=== PATIENT | male | born 1955 | race Caucasian/White ===

== ENCOUNTER 2017-07-03 18:21 | Emergency (ER) | payer MEDICAID ==
[~2017-07-03] VITALS: Ht 182.9 cm; Wt 75.0 kg
[~2017-07-03 18:21] MED LIST: ASPI-1265 PO; ATOR20TA66 PO; CARB-101 PO; FURO40TA4 PO; LEVO750T46 PO; LISI-604 PO; METO50TA16 PO; NITR0.4T51 SL; POTA-82 PO; PRED20TA PO; ROPI1TAB4 PO
[2017-07-03] MEDS ORDERED: ketorolac trometh. 30mg/ml inj. IV ONE (19:30)
[2017-07-03] MEDS ORDERED: acetaminophen 325mg tablet PO ONE (21:25)
[2017-07-03] MEDS ORDERED: ACET-2119 PO (21:29)
[2017-07-03 21:36] VITALS: BP 133/96
== END 2017-07-03 21:44 | disposition home or self-care (01) ==
LOC: ER 18:23
DX: M79.671 Pain in right foot (principal); M79.672 Pain in left foot; I25.10 Atherosclerotic heart disease of native coronary artery without angina pectoris; I11.0 Hypertensive heart disease with heart failure; I50.9 Heart failure, unspecified; I25.2 Old myocardial infarction; E78.00 Pure hypercholesterolemia, unspecified; F15.10 Other stimulant abuse, uncomplicated; Z59.0 Homelessness; Z98.890 Other specified postprocedural states; Z79.82 Long term (current) use of aspirin; Z79.899 Other long term (current) drug therapy
CPT/HCPCS: 96374; 99284; J1885

== ENCOUNTER 2017-11-12 08:30 | Emergency (ER) | payer MEDICAID ==
[~2017-11-12] VITALS: Ht 188 cm; Wt 74.0 kg
[~2017-11-12 08:30] MED LIST changes: +ATOR20TA PO; -ATOR20TA66 PO; -CARB-101 PO; +CARB200C4 PO; +FURO-150 PO; -FURO40TA4 PO; -LEVO750T46 PO; -LISI-604 PO; +LISINOPRIL PO; -METO50TA16 PO; -NITR0.4T51 SL; +NITROGLYCERIN SL SL; -POTA-82 PO; +POTA20PA3 PO; -PRED20TA PO; +PROP10TA10 PO
[2017-11-12 09:13] VITALS: BP 138/96
== END 2017-11-12 09:43 | disposition home or self-care (01) ==
LOC: ER 08:30
DX: M79.89 Other specified soft tissue disorders (principal); I25.10 Atherosclerotic heart disease of native coronary artery without angina pectoris; I11.0 Hypertensive heart disease with heart failure; I50.9 Heart failure, unspecified; E78.00 Pure hypercholesterolemia, unspecified; I25.2 Old myocardial infarction; M19.90 Unspecified osteoarthritis, unspecified site; F12.10 Cannabis abuse, uncomplicated; F15.10 Other stimulant abuse, uncomplicated; Z59.0 Homelessness; Z56.0 Unemployment, unspecified; Z79.82 Long term (current) use of aspirin; Z79.899 Other long term (current) drug therapy
CPT/HCPCS: 99281

== ENCOUNTER 2018-01-05 13:26 | Inpatient (IN) | payer MEDICAID ==
[~2018-01-05] VITALS: Ht 188 cm; Wt 77.1 kg
[~2018-01-05 13:26] MED LIST changes: -POTA20PA3 PO; +POTA20PA40 PO; +dextrose 50%-water 50ml dispensing syringe IV ONE
[2018-01-05 14:16] LABS: BASOPHILS % (AUTO) 0.6 % (0-1); EOSINOPHILS # (AUTO) 0.1 X10'3 (0-0.9); EOSINOPHILS % (AUTO) 3.6 % (0-6); HEMATOCRIT 35.6 % (42.0-52.0); HEMOGLOBIN 11.9 g/dl (14.0-17.9); LYMPHOCYTES % (AUTO) 27.3 % (21-51); MEAN CORPUSCULAR HEMOGLOBIN 28.9 PG (27.0-31.0); MEAN CORPUSCULAR HGB CONC 33.3 % (33.0-36.5); MEAN CORPUSCULAR VOLUME 86.7 FL (78-98); MEAN PLATELET VOLUME 7.6 FL (7.4-10.4); MONOCYTES # (AUTO) 0.3 X10'3 (0-0.9); MONOCYTES % (AUTO) 8.6 % (2-12); NEUTROPHILS # (AUTO) 2.3 X10'3 (1.8-7.7); NEUTROPHILS % (AUTO) 59.9 % (42-75); PLATELET COUNT 275 X10'3 (140-440); RED CELL DISTRIBUTION WIDTH 16.5 % (11.5-14.5); WHITE BLOOD COUNT 3.8 X10'3 (4.5-11.0)
[2018-01-05 14:26] LABS: INR 1.1 INR; PARTIAL THROMBOPLASTIN TIME 25 SECONDS (22-32); PROTHROMBIN TIME 11.1 SECONDS (9.0-12.0)
[2018-01-05 14:30] LABS: ALANINE AMINOTRANSFERASE 24 U/L (12-78); ALBUMIN 2.8 G/DL (3.4-5.0); ALBUMIN/GLOBULIN RATIO 0.5 (1.1-1.5); ALKALINE PHOSPHATASE 102 IU/L (46-116); ANION GAP 7 (8-16); ASPARTATE AMINO TRANSFERASE 37 U/L (10-37); BILIRUBIN,TOTAL 0.6 MG/DL (0.1-1.0); BLOOD UREA NITROGEN 16 MG/DL (7-18); BUN/CREATININE RATIO 10.1 (5.4-32.0); CALCIUM 8.9 MG/DL (8.5-10.1); CHLORIDE 106 MMOL/L (99-107); CREATININE 1.58 MG/DL (0.60-1.10); POTASSIUM 4.3 MMOL/L (3.5-5.1); SODIUM 138 MMOL/L (135-145); eGFR 54 ML/MIN
[2018-01-05 14:31] LABS: GLUCOSE 144 MG/DL (70-104)
[2018-01-05] MEDS ORDERED: iohexol 350MG/ML 100ml bottle IV ONE (16:15)
[2018-01-05] MEDS ORDERED: normal saline 1000ML IV soln IVB ONE (16:15)
[2018-01-05] MEDS ORDERED: magnesium 4gm in 100ml NS 100 ML IV PRN (17:40)
[2018-01-05] MEDS ORDERED: magnesium 1gm/100ml D5W IVPB 50 ML IV PRN (17:40)
[2018-01-05] MEDS ORDERED: mag hydrox/Alum hydrox/simeth 30ml oral suspension PO PRN (17:40)
[2018-01-05] MEDS ORDERED: ipratropium/albuterol 3ml nebule NEB PRN (17:40)
[2018-01-05] MEDS ORDERED: acetaminophen 325mg tablet PO PRN (17:40)
[2018-01-05] MEDS ORDERED: potassium Cl 20 mEq SR tablet PO PRN ×2 (17:40)
[2018-01-05] MEDS ORDERED: potassium Cl 40MEQ/NS 500ml 500 ML IV PRN ×2 (17:40)
[2018-01-05 18:31] LABS: URINE AMPHETAMINE SCREEN POSITIVE (Neg); URINE BARBITUATE SCREEN NEGATIVE (Neg); URINE BENZODIAZEPINES SCREEN NEGATIVE (Neg); URINE CANNABINOID SCREEN NEGATIVE (Neg); URINE COCAINE SCREEN NEGATIVE (Neg); URINE METHADONE SCREEN NEGATIVE (Neg); URINE OPIATE SCREEN NEGATIVE (Neg); URINE PHENCYCLIDINE SCREEN NEGATIVE (Neg)
[2018-01-05] MEDS ORDERED: METO50TA16 PO (18:32)
[2018-01-05] MEDS ORDERED: FURO20TA4 PO (18:32)
[2018-01-05] MEDS ORDERED: ASPI-10 PO (18:32)
[2018-01-05] MEDS ORDERED: MORPHINE 2MG in 2ml NS syringe IV PRN (18:45)
[2018-01-05] MEDS ORDERED: morphine 2 MG/ML inj. syringe IV PRN (18:51)
[2018-01-05] MEDS: ondansetron/PF 4mg/2ml inj IV PRN (19:06)
[2018-01-05] MEDS: morphine 4 MG/ML inj SYRINge IV PRN (19:07)
[2018-01-05] MEDS: furosemide 10 MG/1 ML 10ml inj IV SCH (19:07)
[2018-01-05] MEDS: carBAMazepine Ext. Release 200 MG TAB.ER.12H PO SCH (20:12)
[2018-01-05 20:28] LABS: CARBAMAZEPINE (TEGRETOL) 0.8 UG/ML (4.0-12.0)
[2018-01-05 21:00] VITALS: BP 124/89
[2018-01-05 23:00] VITALS: BP 128/101
[2018-01-06] MEDS: heparin, porcine 5000 units/ml vial SQ SCH ×3 (00:34→16:14)
[2018-01-06] MEDS: morphine 4 MG/ML inj SYRINge IV PRN ×2 (00:34→05:02)
[2018-01-06 03:00] VITALS: BP 120/88
[2018-01-06 06:00] VITALS: BP 117/84
[2018-01-06 06:42] LABS: ALANINE AMINOTRANSFERASE 73 U/L (12-78); ALBUMIN 2.8 G/DL (3.4-5.0); ALBUMIN/GLOBULIN RATIO 0.6 (1.1-1.5); ALKALINE PHOSPHATASE 103 IU/L (46-116); ANION GAP 11 (8-16); ASPARTATE AMINO TRANSFERASE 122 U/L (10-37); BLOOD UREA NITROGEN 23 MG/DL (7-18); BUN/CREATININE RATIO 13.1 (5.4-32.0); CALCIUM 8.5 MG/DL (8.5-10.1); CHLORIDE 102 MMOL/L (99-107); CHOL/HDL RATIO 2.6 (0.00-4.99); CHOLESTEROL 100 MG/DL (0-200); CREATININE 1.75 MG/DL (0.60-1.10); HDL CHOLESTEROL 39 MG/DL (35-60); LDL CHOLESTEROL 60 MG/DL (50-100); MAGNESIUM 1.6 MG/DL (1.5-2.4); POTASSIUM 4.6 MMOL/L (3.5-5.1); SODIUM 136 MMOL/L (135-145); TOTAL CARBON DIOXIDE 23.1 MMOL/L (24-32); TOTAL PROTEIN 7.8 G/DL (6.4-8.2); TRIGLYCERIDES 33 MG/DL (20-135); TROPONIN I 0.04 NG/ML (0.0-0.05); eGFR 48 ML/MIN
[2018-01-06 06:43] LABS: GLUCOSE 69 MG/DL (70-104)
[2018-01-06 07:28] LABS: LYMPHOCYTES % (AUTO) 34.4 % (21-51); MEAN CORPUSCULAR HGB CONC 33.3 % (33.0-36.5); MEAN CORPUSCULAR VOLUME 87.2 FL (78-98); MEAN PLATELET VOLUME 7.9 FL (7.4-10.4); PLATELET COUNT 267 X10'3 (140-440); RED BLOOD COUNT 4.13 X10'6 (4.70-6.10); RED CELL DISTRIBUTION WIDTH 16.4 % (11.5-14.5); WHITE BLOOD COUNT 4.3 X10'3 (4.5-11.0)
[2018-01-06 07:29] LABS: BASOPHILS % (AUTO) 0.6 % (0-1); EOSINOPHILS % (AUTO) 0.4 % (0-6); LYMPHOCYTES # (AUTO) 1.5 X10'3 (1.1-4.8); MONOCYTES # (AUTO) 0.3 X10'3 (0-0.9); MONOCYTES % (AUTO) 7.6 % (2-12); NEUTROPHILS # (AUTO) 2.4 X10'3 (1.8-7.7)
[2018-01-06] MEDS ORDERED: atorvastatin 20mg tablet PO SCH (08:00)
[2018-01-06] MEDS ORDERED: K and/or MAG REPLACEMENT MC SCH (08:00)
[2018-01-06] MEDS: furosemide 10 MG/1 ML 10ml inj IV SCH ×2 (08:51→21:09)
[2018-01-06] MEDS: propranolol 10mg tablet PO SCH (08:51)
[2018-01-06] MEDS: carBAMazepine Ext. Release 200 MG TAB.ER.12H PO SCH ×2 (08:51→20:00)
[2018-01-06] MEDS ORDERED: ATOR20TA PO (10:41)
[2018-01-06] MEDS ORDERED: CARB300C6 PO (10:44)
[2018-01-06] MEDS ORDERED: CARB200C4 PO (10:47)
[2018-01-06] MEDS ORDERED: ROPI3TAB2 PO (10:49)
[2018-01-06] MEDS ORDERED: ROPI1TAB4 PO (10:50)
[2018-01-06] MEDS ORDERED: LISI-600 PO (10:52)
[2018-01-06] MEDS ORDERED: LISI-604 PO (10:54)
[2018-01-06] MEDS ORDERED: NITR0.3T10 SL (10:56)
[2018-01-06 11:00] VITALS: BP 126/90
[2018-01-06] MEDS ORDERED: ziprasidone IM 20mg inj **IM only IM PRN (14:00)
[2018-01-06 15:00] VITALS: BP 128/94
[2018-01-06] MEDS ORDERED: dextrose 50%-water 50ml dispensing syringe IV ONE ×2 (17:11→17:12)
[2018-01-06 17:30] LABS: BASOPHILS % (AUTO) 0.3 % (0-1); EOSINOPHILS % (AUTO) 0.5 % (0-6); HEMATOCRIT 35.7 % (42.0-52.0); HEMOGLOBIN 11.8 g/dl (14.0-17.9); LYMPHOCYTES # (AUTO) 1.1 X10'3 (1.1-4.8); LYMPHOCYTES % (AUTO) 23.4 % (21-51); MEAN CORPUSCULAR HEMOGLOBIN 28.8 PG (27.0-31.0); MEAN CORPUSCULAR HGB CONC 33.1 % (33.0-36.5); MEAN CORPUSCULAR VOLUME 87.1 FL (78-98); MONOCYTES # (AUTO) 0.4 X10'3 (0-0.9); MONOCYTES % (AUTO) 9.2 % (2-12); NEUTROPHILS # (AUTO) 3.2 X10'3 (1.8-7.7); NEUTROPHILS % (AUTO) 66.6 % (42-75); PLATELET COUNT 207 X10'3 (140-440); RED CELL DISTRIBUTION WIDTH 16.7 % (11.5-14.5); WHITE BLOOD COUNT 4.8 X10'3 (4.5-11.0)
[2018-01-06 17:41] LABS: ABG BASE EXCESS -11.6 mmol/L (-2.0-3.0); ABG HCO3 10.3 mmol/L (22.0-26.0); ABG OXYGEN SATURATION 96.7 % (95-98); ABG PCO2 (T) 16.4 mmHg (35.0-48.0); ABG PH (T) 7.415 (7.350-7.450); ABG PO2 (T) 96.8 mmHg (83-108); ALLEN'S TEST Positive; FCOHb 0.2 % (0.5-1.5); FMetHb 0.2 % (0.3-1.12); FO2Hb 96.3 % (94-100); TOTAL HEMOGLOBIN 12.8 G/dl (14.0-18.0)
[2018-01-06 17:51] LABS: ALANINE AMINOTRANSFERASE 206 U/L (12-78); ALBUMIN 2.3 G/DL (3.4-5.0); ALBUMIN/GLOBULIN RATIO 0.5 (1.1-1.5); ALKALINE PHOSPHATASE 91 IU/L (46-116); ANION GAP 10 (8-16); ASPARTATE AMINO TRANSFERASE 363 U/L (10-37); BILIRUBIN,TOTAL 1.8 MG/DL (0.1-1.0); BLOOD UREA NITROGEN 30 MG/DL (7-18); BUN/CREATININE RATIO 12.2 (5.4-32.0); CALCIUM 7.3 MG/DL (8.5-10.1); CHLORIDE 95 MMOL/L (99-107); CREATININE 2.45 MG/DL (0.60-1.10); SODIUM 125 MMOL/L (135-145); TOTAL CARBON DIOXIDE 19.8 MMOL/L (24-32); TOTAL PROTEIN 6.8 G/DL (6.4-8.2); TROPONIN I 0.05 NG/ML (0.0-0.05); eGFR 33 ML/MIN
[2018-01-06 18:03] LABS: POTASSIUM 7.1 MMOL/L (3.5-5.1)
[2018-01-06 18:09] LABS: GLUCOSE 824 MG/DL (70-104)
[2018-01-06] MEDS ORDERED: morphine 4 MG/ML inj SYRINge IV PRN (19:45)
[2018-01-06] MEDS ORDERED: LORazepam 2 mg/ml vial IV PRN (19:45)
[2018-01-06] MEDS: scopolamine 1.5mg patch.TD72 TD SCH (21:48)
[2018-01-06 22:00] VITALS: BP 128/90
[2018-01-07 06:00] VITALS: BP 124/94
[2018-01-07] MEDS: propranolol 10mg tablet PO SCH (07:54)
[2018-01-07] MEDS: carBAMazepine Ext. Release 200 MG TAB.ER.12H PO SCH ×2 (07:54→20:27)
[2018-01-07] MEDS: furosemide 10 MG/1 ML 10ml inj IV SCH (07:54)
[2018-01-07] MEDS ORDERED: dronabinol 2.5mg capsule PO PRN (10:35)
[2018-01-07] MEDS: morphine 2 MG/ML inj. syringe IV PRN ×2 (12:39→20:29)
[2018-01-07] MEDS: ondansetron/PF 4mg/2ml inj IV PRN (19:11)
[2018-01-07] MEDS ORDERED: benzocaine (Anbesol) 12ml bottle MM PRN (20:45)
[2018-01-07 23:00] VITALS: BP 130/81
[2018-01-08 06:00] VITALS: BP 138/93
[2018-01-08] MEDS: propranolol 10mg tablet PO SCH (08:00)
[2018-01-08] MEDS: carBAMazepine Ext. Release 200 MG TAB.ER.12H PO SCH ×2 (08:01→20:06)
[2018-01-08] MEDS: furosemide 10 MG/1 ML 10ml inj IV SCH (08:03)
[2018-01-08] MEDS: morphine 2 MG/ML inj. syringe IV PRN ×2 (17:58→20:44)
[2018-01-08 18:00] VITALS: BP 119/77
[2018-01-09] MEDS: morphine 2 MG/ML inj. syringe IV PRN ×2 (04:18→13:57)
[2018-01-09 05:00] VITALS: BP 111/69
[2018-01-09] MEDS: furosemide 10 MG/1 ML 10ml inj IV SCH (09:21)
[2018-01-09] MEDS: propranolol 10mg tablet PO SCH (09:21)
[2018-01-09] MEDS: carBAMazepine Ext. Release 200 MG TAB.ER.12H PO SCH ×2 (09:21→21:23)
[2018-01-09] MEDS ORDERED: ondansetron 4mg rapidly disintigrating tab PO PRN (14:30)
[2018-01-09] MEDS ORDERED: LORazepam 1 MG tablet PO PRN (14:30)
[2018-01-09 19:30] VITALS: BP 93/65
[2018-01-09 19:39] VITALS: BP 93/65
[2018-01-09] MEDS: scopolamine 1.5mg patch.TD72 TD SCH (21:28)
[2018-01-09] MEDS: morphine 10mg/0.5ml (conc. morphine) oral syringe PO PRN (21:37)
[2018-01-09 22:25] VITALS: BP 106/69
[2018-01-10] MEDS: propranolol 10mg tablet PO SCH (07:51)
[2018-01-10] MEDS: carBAMazepine Ext. Release 200 MG TAB.ER.12H PO SCH ×2 (07:57→19:15)
[2018-01-10 08:00] VITALS: BP 97/64
[2018-01-10] MEDS ORDERED: furosemide 40mg tablet PO SCH (08:00)
[2018-01-10] MEDS: morphine 10mg/0.5ml (conc. morphine) oral syringe PO PRN ×3 (09:27→19:13)
[2018-01-10 22:00] VITALS: BP 98/65
[2018-01-11] MEDS: morphine 10mg/0.5ml (conc. morphine) oral syringe PO PRN ×3 (00:32→07:59)
[2018-01-11] MEDS: carBAMazepine Ext. Release 200 MG TAB.ER.12H PO SCH ×2 (07:56→19:40)
[2018-01-11] MEDS: furosemide 20MG tablet PO SCH (08:00)
[2018-01-11] MEDS: propranolol 10mg tablet PO SCH (08:00)
[2018-01-11] MEDS ORDERED: hydrOXYzine 10MG/5ML oral syrup 120ml PO PRN (19:50)
[2018-01-12] MEDS: morphine 10mg/0.5ml (conc. morphine) oral syringe PO PRN ×4 (03:16→19:01)
[2018-01-12 06:00] VITALS: BP 130/67
[2018-01-12] MEDS: furosemide 20MG tablet PO SCH (07:21)
[2018-01-12] MEDS: carBAMazepine Ext. Release 200 MG TAB.ER.12H PO SCH ×2 (07:21→21:17)
[2018-01-12] MEDS: propranolol 10mg tablet PO SCH (07:22)
[2018-01-12] MEDS: magnesium hydroxide 30ml (MOM) UD suspension PO PRN (07:22)
[2018-01-12 10:00] VITALS: BP 102/69
[2018-01-12] MEDS: scopolamine 1.5mg patch.TD72 TD SCH (21:17)
[2018-01-12 22:00] VITALS: BP 114/83
[2018-01-13] MEDS: morphine 10mg/0.5ml (conc. morphine) oral syringe PO PRN ×5 (03:50→19:11)
[2018-01-13] MEDS: propranolol 10mg tablet PO SCH (08:21)
[2018-01-13] MEDS: furosemide 20MG tablet PO SCH (08:21)
[2018-01-13] MEDS: carBAMazepine Ext. Release 200 MG TAB.ER.12H PO SCH ×2 (08:21→19:19)
[2018-01-13 15:46] VITALS: BP 98/70
[2018-01-13 22:00] VITALS: BP 105/65
[2018-01-14 06:00] VITALS: BP 101/66
[2018-01-14] MEDS: furosemide 20MG tablet PO SCH (07:51)
[2018-01-14] MEDS: carBAMazepine Ext. Release 200 MG TAB.ER.12H PO SCH ×2 (07:51→19:37)
[2018-01-14] MEDS: propranolol 10mg tablet PO SCH (07:51)
[2018-01-14] MEDS: morphine 10mg/0.5ml (conc. morphine) oral syringe PO PRN ×3 (07:52→17:45)
[2018-01-14 10:00] VITALS: BP 94/64
[2018-01-14] MEDS: magnesium hydroxide 30ml (MOM) UD suspension PO PRN (17:45)
[2018-01-14 22:00] VITALS: BP 104/61
[2018-01-15] MEDS: morphine 10mg/0.5ml (conc. morphine) oral syringe PO PRN ×4 (05:52→21:24)
[2018-01-15] MEDS: propranolol 10mg tablet PO SCH (07:17)
[2018-01-15] MEDS: furosemide 20MG tablet PO SCH (07:17)
[2018-01-15] MEDS: carBAMazepine Ext. Release 200 MG TAB.ER.12H PO SCH ×2 (07:18→20:06)
[2018-01-15] MEDS: scopolamine 1.5mg patch.TD72 TD SCH (21:25)
[2018-01-15 22:00] VITALS: BP 103/67
[2018-01-16] MEDS: carBAMazepine Ext. Release 200 MG TAB.ER.12H PO SCH ×2 (07:38→19:51)
[2018-01-16] MEDS: furosemide 20MG tablet PO SCH (07:38)
[2018-01-16] MEDS: propranolol 10mg tablet PO SCH (07:38)
[2018-01-16] MEDS: morphine 10mg/0.5ml (conc. morphine) oral syringe PO PRN ×4 (07:39→22:57)
[2018-01-16 18:00] VITALS: BP 107/74
[2018-01-17] MEDS: morphine 10mg/0.5ml (conc. morphine) oral syringe PO PRN ×5 (05:33→19:34)
[2018-01-17 07:07] VITALS: BP 96/56
[2018-01-17] MEDS: carBAMazepine Ext. Release 200 MG TAB.ER.12H PO SCH ×2 (07:43→19:31)
[2018-01-17] MEDS: propranolol 10mg tablet PO SCH (07:43)
[2018-01-17] MEDS: furosemide 20MG tablet PO SCH (07:43)
[2018-01-17 18:00] VITALS: BP 97/61
[2018-01-17 22:00] VITALS: BP 94/61
[2018-01-18 05:00] VITALS: BP 104/68
[2018-01-18] MEDS: propranolol 10mg tablet PO SCH (08:00)
[2018-01-18] MEDS: furosemide 20MG tablet PO SCH (08:00)
[2018-01-18] MEDS: carBAMazepine Ext. Release 200 MG TAB.ER.12H PO SCH ×2 (09:27→20:29)
[2018-01-18] MEDS: morphine 10mg/0.5ml (conc. morphine) oral syringe PO PRN ×3 (09:36→20:30)
[2018-01-18 18:00] VITALS: BP 105/72
[2018-01-18] MEDS: scopolamine 1.5mg patch.TD72 TD SCH (20:29)
[2018-01-18 22:00] VITALS: BP 107/67
[2018-01-19 05:00] VITALS: BP 104/68
[2018-01-19] MEDS: propranolol 10mg tablet PO SCH (08:03)
[2018-01-19] MEDS: furosemide 20MG tablet PO SCH (08:03)
[2018-01-19] MEDS: carBAMazepine Ext. Release 200 MG TAB.ER.12H PO SCH ×2 (08:03→21:29)
[2018-01-19 10:00] VITALS: BP 109/58
[2018-01-19] MEDS: morphine 10mg/0.5ml (conc. morphine) oral syringe PO PRN ×3 (12:12→21:29)
[2018-01-20] MEDS: propranolol 10mg tablet PO SCH (08:13)
[2018-01-20] MEDS: furosemide 20MG tablet PO SCH (08:13)
[2018-01-20] MEDS: carBAMazepine Ext. Release 200 MG TAB.ER.12H PO SCH ×2 (08:13→19:50)
[2018-01-20 10:00] VITALS: BP 94/64
[2018-01-20] MEDS: morphine 10mg/0.5ml (conc. morphine) oral syringe PO PRN (18:35)
[2018-01-21] MEDS: morphine 10mg/0.5ml (conc. morphine) oral syringe PO PRN ×3 (01:07→20:00)
[2018-01-21] MEDS: carBAMazepine Ext. Release 200 MG TAB.ER.12H PO SCH ×2 (07:52→20:00)
[2018-01-21] MEDS: propranolol 10mg tablet PO SCH (07:55)
[2018-01-21] MEDS: furosemide 20MG tablet PO SCH (07:55)
[2018-01-21 10:00] VITALS: BP 92/59
[2018-01-21] MEDS: scopolamine 1.5mg patch.TD72 TD SCH (20:09)
[2018-01-21 22:00] VITALS: BP 99/61
[2018-01-22] MEDS: morphine 10mg/0.5ml (conc. morphine) oral syringe PO PRN (06:00)
[2018-01-22 07:24] VITALS: BP 111/73
[2018-01-22] MEDS: propranolol 10mg tablet PO SCH (07:45)
[2018-01-22] MEDS: carBAMazepine Ext. Release 200 MG TAB.ER.12H PO SCH ×2 (07:45→20:04)
[2018-01-22] MEDS: furosemide 20MG tablet PO SCH (07:45)
[2018-01-22 10:00] VITALS: BP 97/62
[2018-01-22 22:00] VITALS: BP 109/79
[2018-01-23] MEDS: carBAMazepine Ext. Release 200 MG TAB.ER.12H PO SCH ×2 (08:19→18:50)
[2018-01-23] MEDS: propranolol 10mg tablet PO SCH (08:20)
[2018-01-23] MEDS: furosemide 20MG tablet PO SCH (08:20)
[2018-01-23] MEDS: morphine 10mg/0.5ml (conc. morphine) oral syringe PO PRN ×2 (08:22→22:01)
[2018-01-23 22:44] VITALS: BP 108/65
[2018-01-24] MEDS: carBAMazepine Ext. Release 200 MG TAB.ER.12H PO SCH ×2 (07:20→19:13)
[2018-01-24] MEDS: propranolol 10mg tablet PO SCH (07:21)
[2018-01-24] MEDS: furosemide 20MG tablet PO SCH (07:21)
[2018-01-24 10:00] VITALS: BP 93/68
[2018-01-24] MEDS: morphine 10mg/0.5ml (conc. morphine) oral syringe PO PRN (11:28)
[2018-01-24] MEDS: HYDROcodone/acetaminophen 5mg/325mg tablet PO PRN ×2 (13:13→19:13)
[2018-01-24] MEDS: scopolamine 1.5mg patch.TD72 TD SCH (21:48)
[2018-01-24 22:00] VITALS: BP 101/64
[2018-01-25] MEDS: HYDROcodone/acetaminophen 5mg/325mg tablet PO PRN ×2 (03:27→10:30)
[2018-01-25 08:43] VITALS: BP 118/74
[2018-01-25] MEDS: carBAMazepine Ext. Release 200 MG TAB.ER.12H PO SCH ×2 (08:43→19:49)
[2018-01-25] MEDS: propranolol 10mg tablet PO SCH (08:43)
[2018-01-25] MEDS: furosemide 20MG tablet PO SCH ×2 (08:43→19:49)
[2018-01-25 10:00] VITALS: BP 101/65
[2018-01-25 13:57] LABS: ALBUMIN 2.6 G/DL (3.4-5.0); ANION GAP 6 (8-16); BLOOD UREA NITROGEN 22 MG/DL (7-18); BUN/CREATININE RATIO 17.2 (5.4-32.0); CHLORIDE 101 MMOL/L (99-107); CREATININE 1.28 MG/DL (0.60-1.10); GLUCOSE 123 MG/DL (70-104); MAGNESIUM 1.6 MG/DL (1.5-2.4); POTASSIUM 4.1 MMOL/L (3.5-5.1); SODIUM 135 MMOL/L (135-145); eGFR 69 ML/MIN
[2018-01-25 13:59] LABS: BASOPHILS % (AUTO) 0.8 % (0-1); EOSINOPHILS # (AUTO) 0.1 X10'3 (0-0.9); HEMATOCRIT 42.1 % (42.0-52.0); HEMOGLOBIN 13.3 g/dl (14.0-17.9); LYMPHOCYTES # (AUTO) 0.8 X10'3 (1.1-4.8); LYMPHOCYTES % (AUTO) 22.3 % (21-51); MEAN CORPUSCULAR HEMOGLOBIN 27.8 PG (27.0-31.0); MEAN CORPUSCULAR HGB CONC 31.7 % (33.0-36.5); MEAN CORPUSCULAR VOLUME 87.9 FL (78-98); MEAN PLATELET VOLUME 8.2 FL (7.4-10.4); MONOCYTES # (AUTO) 0.4 X10'3 (0-0.9); NEUTROPHILS # (AUTO) 2.4 X10'3 (1.8-7.7); NEUTROPHILS % (AUTO) 61.9 % (42-75); PLATELET COUNT 329 X10'3 (140-440); RED BLOOD COUNT 4.79 X10'6 (4.70-6.10); RED CELL DISTRIBUTION WIDTH 14.9 % (11.5-14.5); WHITE BLOOD COUNT 3.7 X10'3 (4.5-11.0)
[2018-01-25] MEDS: lisinopril 5mg tablet PO SCH (16:15)
[2018-01-25] MEDS ORDERED: nitroGLYCERIN 0.4mg SUBLingual tab SL PRN (16:30)
[2018-01-25 17:10] VITALS: BP 112/64
[2018-01-25] MEDS: metoprolol tartrate 50mg tablet PO SCH (17:11)
[2018-01-25] MEDS: HYDROcodone/acetaminophen 10/325mg tab PO PRN (18:23)
[2018-01-25 19:45] VITALS: BP 110/78
[2018-01-25] MEDS ORDERED: non-formulary drug (Carbamazepine 200 MG) PO SCH (20:00)
[2018-01-25] MEDS ORDERED: ROPINIRole 1mg tablet PO SCH (21:00)
[2018-01-25 22:00] VITALS: BP 102/59
[2018-01-26] MEDS: HYDROcodone/acetaminophen 10/325mg tab PO PRN ×3 (01:34→11:15)
[2018-01-26 06:00] VITALS: BP 126/80
[2018-01-26] MEDS: metoprolol tartrate 50mg tablet PO SCH (07:34)
[2018-01-26] MEDS: carBAMazepine Ext. Release 200 MG TAB.ER.12H PO SCH (07:34)
[2018-01-26] MEDS: lisinopril 5mg tablet PO SCH (07:34)
[2018-01-26] MEDS: furosemide 20MG tablet PO SCH (07:35)
[2018-01-26] MEDS ORDERED: aspirin 81mg tablet.DR PO SCH (08:00)
[2018-01-26] MEDS ORDERED: atorvastatin 20mg tablet PO SCH (08:00)
[2018-01-26 10:00] VITALS: BP 100/58
[2018-01-26] MEDS ORDERED: SPIR25TA5 PO (12:35)
== END 2018-01-26 16:30 | disposition home or self-care (01) | DRG 194 ==
LOC: ER 13:26 → ED HOLD 17:37 → PCU 3S 19:21 → ORTHO 4S 01-08 16:42
PROVIDERS: ADMIT Family Medicine; ATTEND Family Medicine
DX: I13.0 Hypertensive heart and chronic kidney disease with heart failure and stage 1 through stage 4 chronic kidney disease, or unspecified chronic kidney disease (principal); N17.9 Acute kidney failure, unspecified; I25.10 Atherosclerotic heart disease of native coronary artery without angina pectoris; E78.5 Hyperlipidemia, unspecified; G40.909 Epilepsy, unspecified, not intractable, without status epilepticus; F15.10 Other stimulant abuse, uncomplicated; Z66 Do not resuscitate; F17.210 Nicotine dependence, cigarettes, uncomplicated; F12.90 Cannabis use, unspecified, uncomplicated; N18.9 Chronic kidney disease, unspecified; M19.90 Unspecified osteoarthritis, unspecified site; E78.00 Pure hypercholesterolemia, unspecified; I25.2 Old myocardial infarction; Z56.0 Unemployment, unspecified; Z59.0 Homelessness; Z82.49 Family history of ischemic heart disease and other diseases of the circulatory system; Z91.19 Patient's noncompliance with other medical treatment and regimen; Z87.01 Personal history of pneumonia (recurrent); Z71.6 Tobacco abuse counseling; Z71.51 Drug abuse counseling and surveillance of drug abuser
CPT/HCPCS: 36415; 36600; 71045; 71275; 74176; 80048; 80053; 80061; 80156; 80305; 82803; 82948; 83605; 83735; 83880; 84484; 85018; 85025; 85610; 85730; 87040; 87070; 93005; 93306; 94760; 96360; 97161; 97530; 99285; A6257; J1644; J1940; J2270; J2274; J2405; J3486; J7030; Q0167; Q9967

== ENCOUNTER 2018-02-18 11:23 | Emergency (ER) | payer MEDICAID ==
[~2018-02-18] VITALS: Ht 188 cm; Wt 79.5 kg
[~2018-02-18 11:23] MED LIST changes: +ASPI-10 PO; -ASPI-1265 PO; -FURO-150 PO; +FURO20TA4 PO; +LISI-604 PO; -LISINOPRIL PO; +METO50TA16 PO; +NITR0.3T10 SL; -NITROGLYCERIN SL SL; -POTA20PA40 PO; -PROP10TA10 PO; +SPIR25TA5 PO; -dextrose 50%-water 50ml dispensing syringe IV ONE
[2018-02-18 11:25] VITALS: BP 153/83
[2018-02-18] MEDS ORDERED: NAPR-1074 PO (12:31)
[2018-02-18] MEDS ORDERED: METO50TA17 PO (12:31)
[2018-02-18] MEDS ORDERED: FURO-150 PO (12:31)
[2018-02-18] MEDS ORDERED: CARB-52 PO (12:31)
[2018-02-18] MEDS ORDERED: ASPI81TA52 PO (12:31)
[2018-02-18] MEDS ORDERED: LISI-604 PO (12:31)
[2018-02-18] MEDS ORDERED: NITR0.4T51 SL (12:31)
== END 2018-02-18 13:06 | disposition home or self-care (01) ==
LOC: ER 11:23
DX: Z76.0 Encounter for issue of repeat prescription (principal); I25.10 Atherosclerotic heart disease of native coronary artery without angina pectoris; I11.0 Hypertensive heart disease with heart failure; I50.9 Heart failure, unspecified; E78.00 Pure hypercholesterolemia, unspecified; I25.2 Old myocardial infarction; M19.90 Unspecified osteoarthritis, unspecified site; F12.90 Cannabis use, unspecified, uncomplicated; F15.90 Other stimulant use, unspecified, uncomplicated; Z98.890 Other specified postprocedural states; Z88.8 Allergy status to other drugs, medicaments and biological substances; Z79.82 Long term (current) use of aspirin; Z79.899 Other long term (current) drug therapy; Z59.0 Homelessness; Z56.0 Unemployment, unspecified
CPT/HCPCS: 99283

== ENCOUNTER 2018-10-10 01:18 | Inpatient (IN) | payer MEDICAID ==
[~2018-10-10] VITALS: Ht 180.3 cm; Wt 77.3 kg
[~2018-10-10 01:18] MED LIST changes: +POTA20TA19 PO
--- NOTE | 2018-10-10 01:22 | NUR ---
EKG DELAYED, PT TO CT
[2018-10-10] MEDS ORDERED: CARV6.253 PO (01:32)
[2018-10-10] MEDS ORDERED: ALLO100T PO (01:32)
[2018-10-10] MEDS ORDERED: iohexol 350MG/ML 100ml bottle IV ONE (01:37)
--- NOTE | 2018-10-10 02:16 | NUR ---
pt told heena stroke rn that he took morphine po just prior to symptoms starting
[2018-10-10 02:18] LABS: BASOPHILS % (AUTO) 0.9 % (0-1); EOSINOPHILS # (AUTO) 0.1 X10'3 (0-0.9); EOSINOPHILS % (AUTO) 2.3 % (0-6); HEMATOCRIT 36.9 % (42.0-52.0); LYMPHOCYTES # (AUTO) 0.8 X10'3 (1.1-4.8); LYMPHOCYTES % (AUTO) 24.1 % (21-51); MEAN CORPUSCULAR HEMOGLOBIN 27.5 PG (27.0-31.0); MEAN CORPUSCULAR HGB CONC 32.6 g/dL (33.0-36.5); MEAN CORPUSCULAR VOLUME 84.5 FL (78-98); MEAN PLATELET VOLUME 7.6 FL (7.4-10.4); MONOCYTES # (AUTO) 0.4 X10'3 (0-0.9); MONOCYTES % (AUTO) 13.9 % (2-12); NEUTROPHILS # (AUTO) 1.9 X10'3 (1.8-7.7); NEUTROPHILS % (AUTO) 58.8 % (42-75); PLATELET COUNT 231 X10'3 (140-440); RED BLOOD COUNT 4.37 X10'6 (4.70-6.10); RED CELL DISTRIBUTION WIDTH 16.4 % (11.5-14.5); WHITE BLOOD COUNT 3.2 X10'3 (4.5-11.0)
[2018-10-10 02:30] LABS: INR 1.1 INR; PARTIAL THROMBOPLASTIN TIME 30 SECONDS (22-32); PROTHROMBIN TIME 11.2 SECONDS (9.0-12.0)
[2018-10-10 02:31] LABS: ALANINE AMINOTRANSFERASE 6 U/L (12-78); ALBUMIN 2.5 G/DL (3.4-5.0); ALBUMIN/GLOBULIN RATIO 0.5 (1.1-1.5); ALKALINE PHOSPHATASE 56 IU/L (46-116); ANION GAP 9 (8-16); ASPARTATE AMINO TRANSFERASE 31 U/L (10-37); BILIRUBIN,TOTAL 0.2 MG/DL (0.1-1.0); BLOOD UREA NITROGEN 20 MG/DL (7-18); BUN/CREATININE RATIO 12.3 (5.4-32.0); CALCIUM 8.8 MG/DL (8.5-10.1); CHLORIDE 101 MMOL/L (99-107); CREATININE 1.62 MG/DL (0.60-1.10); GLUCOSE 117 MG/DL (70-104); POTASSIUM 3.6 MMOL/L (3.5-5.1); SODIUM 133 MMOL/L (135-145); TOTAL CARBON DIOXIDE 22.7 MMOL/L (24-32); TOTAL PROTEIN 7.3 G/DL (6.4-8.2); eGFR 53 ML/MIN
[2018-10-10] MEDS ORDERED: heparin 10,000 units/1 ML INJ IV PRN (02:50)
[2018-10-10] MEDS ORDERED: tirofiban 5mg in NS 100mL 100 ML IV SCH (02:50)
[2018-10-10] MEDS ORDERED: heparin 10,000 units/1 ML INJ IV ONE ×2 (02:50→03:00)
[2018-10-10] MEDS: heparin 25,000 UNIT/250ml bag 250 ML IV SCH ×2 (03:12→15:36)
[2018-10-10] MEDS ORDERED: normal saline 1000ml 1,000 ML IV SCH (03:16)
[2018-10-10] MEDS ORDERED: ondansetron/PF 4mg/2ml inj IV PRN (03:20)
[2018-10-10] MEDS ORDERED: acetaminophen 325mg tablet PO PRN (03:20)
[2018-10-10] MEDS ORDERED: magnesium hydroxide 30ml (MOM) UD suspension PO PRN (03:20)
[2018-10-10] MEDS ORDERED: mag hydrox/Alum hydrox/simeth 30ml oral suspension PO PRN (03:20)
[2018-10-10] MEDS ORDERED: TIROFIBAN IV ONE (03:20)
[2018-10-10] MEDS ORDERED: SODIUM CHLORIDE IV ONE (03:20)
--- NOTE | 2018-10-10 03:21 | NUR ---
verified aggrastat dosing with [facility] and bc ulloa
--- NOTE | 2018-10-10 06:49 | NUR ---
Clarisa Lennon COMIC WRITER bed side stated to stop Aggistate R/T the pt not being a cath candidate.
--- NOTE | 2018-10-10 07:01 | NUR ---
Patient in room . I have received report from April SEGAL and had the opportunity to ask questions and assume patient care.
[2018-10-10] MEDS ORDERED: metoprolol tartrate 50mg tablet PO SCH (07:30)
[2018-10-10] MEDS ORDERED: carvedilol 6.25mg tablet PO SCH (08:00)
[2018-10-10] MEDS: allopurinol 100mg tablet PO SCH (08:00)
--- NOTE | 2018-10-10 08:10 | NUR ---
Patient arrived to PCU 3020 on hospital bed. Patient VS: T: 97.9, HR: 97, RR: 20, O2: 95% on room air, BP 104/72. Pain 0/10. Patient in no acute distress. Will continue to monitor.
[2018-10-10] MEDS: lisinopril 5mg tablet PO SCH (09:20)
[2018-10-10] MEDS: carBAMazepine Ext. Release 200 MG TAB.ER.12H PO SCH ×2 (09:20→21:15)
[2018-10-10] MEDS: potassium Cl 20 mEq SR tablet PO SCH (09:20)
[2018-10-10] MEDS: spironolactone 25 MG tablet PO SCH (09:20)
[2018-10-10] MEDS: atorvastatin 20mg tablet PO SCH (09:21)
[2018-10-10] MEDS: aspirin 81mg tablet.DR PO SCH (09:22)
[2018-10-10 11:00] VITALS: BP 83/61
--- NOTE | 2018-10-10 11:39 | NUR ---
Paged Dr. Costello: PAGER ID: [phone] MESSAGE: Suzanna Argelia [phone]. RE: Rod Garcia 3020. Patient has a pureed diet ordered. Can we advance to a regular diet. Patient is able to swallow with no difficulties. Thank you
[2018-10-10 15:00] VITALS: BP 86/57
--- NOTE | 2018-10-10 15:27 | NUR ---
Paged Dr. Costello: PAGER ID: [phone] MESSAGE: Suzanna SHAFER [phone]. RE: Rod Garcia 3020. 12 hour troponin 4.17.
--- NOTE | 2018-10-10 15:56 | NUR ---
Paged Dr. Costello: PAGER ID: [phone] MESSAGE: Suzanna [phone] RE: Rod Garcia 1090. FYI Patient's BP 86/57. Patient received Lopressor 50 mg, Coreg 6.25 mg and Zestril 5 mg this morning at 0920. Patient asymptomatic.
[2018-10-10 18:00] VITALS: BP 95/61
--- NOTE | 2018-10-10 18:35 | NUR ---
Problems reprioritized. Patient report given, questions answered & plan of care reviewed with Christine SEGAL.
--- NOTE | 2018-10-10 18:49 | NUR ---
Patient in room PCU 3020. I have received report from Suzanna SEGAL and had the opportunity to ask questions and assume patient care.
[2018-10-10] MEDS: carVEDilol 3.125mg tablet PO SCH (20:00)
[2018-10-10] MEDS: ROPINIRole 1mg tablet PO SCH (21:15)
[2018-10-10 22:00] VITALS: BP 96/67
[2018-10-11 02:00] VITALS: BP 113/79
[2018-10-11 04:06] LABS: INR 1.1 INR
[2018-10-11 05:55] LABS: BASOPHILS % (AUTO) 0.5 % (0-1); HEMATOCRIT 36.8 % (42.0-52.0); LYMPHOCYTES % (AUTO) 30.3 % (21-51); MEAN CORPUSCULAR HEMOGLOBIN 27.1 PG (27.0-31.0); MEAN CORPUSCULAR HGB CONC 32.7 g/dL (33.0-36.5); MEAN CORPUSCULAR VOLUME 82.7 FL (78-98); MEAN PLATELET VOLUME 7.8 FL (7.4-10.4); MONOCYTES # (AUTO) 0.6 X10'3 (0-0.9); MONOCYTES % (AUTO) 17.8 % (2-12); NEUTROPHILS # (AUTO) 1.6 X10'3 (1.8-7.7); NEUTROPHILS % (AUTO) 50.4 % (42-75); PLATELET COUNT 255 X10'3 (140-440); RED BLOOD COUNT 4.45 X10'6 (4.70-6.10); RED CELL DISTRIBUTION WIDTH 16.3 % (11.5-14.5); WHITE BLOOD COUNT 3.2 X10'3 (4.5-11.0)
[2018-10-11 06:00] VITALS: BP 123/86
--- NOTE | 2018-10-11 06:00 | NUR ---
Patient in room PCU 3020. I have received report from ANTONELLA SEGAL and had the opportunity to ask questions and assume patient care. ASSESSMENT COMPLETED. PT DENIES NEEDS. BACK TO SLEEP. CALL LIGHT IN REACH. Addendum: 10/11/18 at 0653 by Kristen Wyatt RN Amended: Links added.
[2018-10-11 06:03] LABS: ALBUMIN 2.4 G/DL (3.4-5.0); ANION GAP 8 (8-16); BLOOD UREA NITROGEN 16 MG/DL (7-18); BUN/CREATININE RATIO 11.7 (5.4-32.0); CHLORIDE 103 MMOL/L (99-107); CHOL/HDL RATIO 3.1 (0.00-4.99); CHOLESTEROL 119 MG/DL (0-200); CREATININE 1.37 MG/DL (0.60-1.10); GLUCOSE 80 MG/DL (70-104); HDL CHOLESTEROL 39 MG/DL (35-60); LDL CHOLESTEROL 78 MG/DL (50-100); POTASSIUM 4.3 MMOL/L (3.5-5.1); SODIUM 133 MMOL/L (135-145); TOTAL CARBON DIOXIDE 22.3 MMOL/L (24-32); TRIGLYCERIDES 49 MG/DL (20-135); eGFR 64 ML/MIN
--- NOTE | 2018-10-11 06:25 | NUR ---
Problems reprioritized. Patient report given, questions answered & plan of care reviewed with Lela SEGAL.
[2018-10-11 06:37] LABS: ANISOCYTOSIS 1+; LARGE PLATELETS FEW; PLATELET ESTIMATE NORMAL
[2018-10-11] MEDS: atorvastatin 20mg tablet PO SCH (08:24)
[2018-10-11] MEDS: lisinopril 5mg tablet PO SCH (08:24)
[2018-10-11] MEDS: carVEDilol 3.125mg tablet PO SCH ×2 (08:25→20:00)
[2018-10-11] MEDS: aspirin 81mg tablet.DR PO SCH (08:25)
[2018-10-11] MEDS: carBAMazepine Ext. Release 200 MG TAB.ER.12H PO SCH ×2 (08:26→21:11)
[2018-10-11] MEDS: spironolactone 25 MG tablet PO SCH (08:26)
[2018-10-11] MEDS: potassium Cl 20 mEq SR tablet PO SCH (08:26)
[2018-10-11] MEDS: allopurinol 100mg tablet PO SCH (08:26)
[2018-10-11 11:38] VITALS: BP 95/66
--- NOTE | 2018-10-11 13:00 | NUR ---
PT UP WITH PT. WALKED 80 FEET. BACK TO BED. Addendum: 10/11/18 at 1800 by Kristen Wyatt RN Amended: Links added.
[2018-10-11 15:00] VITALS: BP 100/74
--- NOTE | 2018-10-11 18:11 | NUR ---
Problems reprioritized. Patient report given, questions answered & plan of care reviewed with MARIVEL SEGAL. PT EATING SOME DINNER. NO DISTRESS.. Addendum: 10/11/18 at 1811 by Kristen Wyatt RN Amended: Links added.
[2018-10-11 18:56] VITALS: BP 100/68
[2018-10-11] MEDS: ROPINIRole 1mg tablet PO SCH (21:14)
[2018-10-11 22:00] VITALS: BP 98/71
[2018-10-12 02:00] VITALS: BP 105/67
[2018-10-12 05:31] LABS: ALBUMIN 2.3 G/DL (3.4-5.0); ANION GAP 9 (8-16); BLOOD UREA NITROGEN 16 MG/DL (7-18); BUN/CREATININE RATIO 11.8 (5.4-32.0); CHLORIDE 106 MMOL/L (99-107); CREATININE 1.36 MG/DL (0.60-1.10); GLUCOSE 97 MG/DL (70-104); SODIUM 137 MMOL/L (135-145); TOTAL CARBON DIOXIDE 21.8 MMOL/L (24-32); eGFR 64 ML/MIN
[2018-10-12 05:39] LABS: BASOPHILS % (AUTO) 0.5 % (0-1); EOSINOPHILS % (AUTO) 1.6 % (0-6); HEMATOCRIT 36.7 % (42.0-52.0); HEMOGLOBIN 12.1 g/dl (14.0-17.9); LYMPHOCYTES # (AUTO) 0.9 X10'3 (1.1-4.8); LYMPHOCYTES % (AUTO) 31.3 % (21-51); MEAN CORPUSCULAR HEMOGLOBIN 27.1 PG (27.0-31.0); MEAN CORPUSCULAR HGB CONC 32.9 g/dL (33.0-36.5); MEAN CORPUSCULAR VOLUME 82.3 FL (78-98); MEAN PLATELET VOLUME 7.6 FL (7.4-10.4); MONOCYTES # (AUTO) 0.5 X10'3 (0-0.9); MONOCYTES % (AUTO) 16.1 % (2-12); NEUTROPHILS # (AUTO) 1.4 X10'3 (1.8-7.7); NEUTROPHILS % (AUTO) 50.5 % (42-75); PLATELET COUNT 239 X10'3 (140-440); RED BLOOD COUNT 4.46 X10'6 (4.70-6.10); RED CELL DISTRIBUTION WIDTH 16.2 % (11.5-14.5); WHITE BLOOD COUNT 2.8 X10'3 (4.5-11.0)
[2018-10-12 05:50] LABS: INR 1.1 INR; PARTIAL THROMBOPLASTIN TIME 29 SECONDS (22-32); PROTHROMBIN TIME 10.8 SECONDS (9.0-12.0)
[2018-10-12 06:00] VITALS: BP 100/70
[2018-10-12 06:56] LABS: NEUTROPHILS % (MANUAL) 67 % (42-75); TOTAL CELLS COUNTED 100
[2018-10-12 06:57] LABS: ANISOCYTOSIS 1+; EOSINOPHILS % (MANUAL) 1 % (0-6); LYMPHOCYTES % (MANUAL) 21 % (21-51); MONOCYTES % (MANUAL) 9 % (2-12); NUCLEATED RED BLOOD CELLS 1 /100WBC (0-0); PLATELET ESTIMATE NORMAL; REACTIVE LYMPHOCYTES % 2 % (0-0)
[2018-10-12] MEDS: lisinopril 5mg tablet PO SCH (08:00)
[2018-10-12 08:46] VITALS: BP 94/76
[2018-10-12 08:49] VITALS: BP 108/76
[2018-10-12 08:52] VITALS: BP 117/83
[2018-10-12] MEDS: carBAMazepine Ext. Release 200 MG TAB.ER.12H PO SCH (09:04)
[2018-10-12] MEDS: potassium Cl 20 mEq SR tablet PO SCH (09:04)
[2018-10-12] MEDS: allopurinol 100mg tablet PO SCH (09:05)
[2018-10-12] MEDS: carVEDilol 3.125mg tablet PO SCH (09:05)
[2018-10-12] MEDS: atorvastatin 20mg tablet PO SCH (09:05)
[2018-10-12] MEDS: aspirin 81mg tablet.DR PO SCH (09:05)
[2018-10-12] MEDS: spironolactone 25 MG tablet PO SCH (09:06)
--- NOTE | 2018-10-12 09:56 | NUR ---
Held Lisinopril due to fluctuating low BP of 100/70, 109/78, 102/73, 94/76. Will continue to monitor BP.
[2018-10-12 11:00] VITALS: BP 108/72
--- NOTE | 2018-10-12 13:38 | NUR ---
Sent to Dr. Costello MESSAGE: ROOM 3020. Rod Garcia: Fransisco Costello, the patient's ride is here to pick him up. He is quite anxious to get home. Is it possible to get discharge orders in soon? Thank you, Leanna
[2018-10-12] MEDS ORDERED: COR3.125T PO (13:58)
== END 2018-10-12 14:54 | disposition home or self-care (01) | DRG 190 ==
LOC: ER 01:19 → PCU 3S 07:54 → CMPBEDREQ 20:00
PROVIDERS: ADMIT Hospitalist; ATTEND Hospitalist
PROC: B3251ZZ Computerized Tomography (CT Scan) of Bilateral Common Carotid Arteries using Low Osmolar Contrast (ICD-10-PCS; principal; 2018-10-10)
PROC: B32G1ZZ Computerized Tomography (CT Scan) of Bilateral Vertebral Arteries using Low Osmolar Contrast (ICD-10-PCS; 2018-10-10)
PROC: B3281ZZ Computerized Tomography (CT Scan) of Bilateral Internal Carotid Arteries using Low Osmolar Contrast (ICD-10-PCS; 2018-10-10)
DX: I21.4 Non-ST elevation (NSTEMI) myocardial infarction (principal); E43 Unspecified severe protein-calorie malnutrition; G93.41 Metabolic encephalopathy; E87.1 Hypo-osmolality and hyponatremia; I13.0 Hypertensive heart and chronic kidney disease with heart failure and stage 1 through stage 4 chronic kidney disease, or unspecified chronic kidney disease; I50.22 Chronic systolic (congestive) heart failure; I42.9 Cardiomyopathy, unspecified; E78.00 Pure hypercholesterolemia, unspecified; E78.5 Hyperlipidemia, unspecified; F12.90 Cannabis use, unspecified, uncomplicated; F15.10 Other stimulant abuse, uncomplicated; F17.210 Nicotine dependence, cigarettes, uncomplicated; G51.0 Bell's palsy; I25.10 Atherosclerotic heart disease of native coronary artery without angina pectoris; G89.29 Other chronic pain; N18.9 Chronic kidney disease, unspecified; R62.7 Adult failure to thrive; M19.90 Unspecified osteoarthritis, unspecified site; Z59.0 Homelessness; I25.2 Old myocardial infarction; Z82.49 Family history of ischemic heart disease and other diseases of the circulatory system; Z91.14 Patient's other noncompliance with medication regimen; Z91.19 Patient's noncompliance with other medical treatment and regimen; Z88.8 Allergy status to other drugs, medicaments and biological substances; Z87.01 Personal history of pneumonia (recurrent); Z68.23 Body mass index [BMI] 23.0-23.9, adult; Z79.899 Other long term (current) drug therapy; Z79.82 Long term (current) use of aspirin; Z71.51 Drug abuse counseling and surveillance of drug abuser; Z71.6 Tobacco abuse counseling
CPT/HCPCS: 36415; 70450; 70496; 70498; 71045; 80048; 80053; 80061; 84484; 85025; 85610; 85730; 87070; 92508; 92616; 93005; 93306; 96374; 97116; 97162; 97530; 99285; G0378; J1644; J3246; J7030; Q9967

== ENCOUNTER 2019-04-08 17:11 | Inpatient (IN) | payer MEDICAID ==
[~2019-04-08] VITALS: Ht 188 cm; Wt 80.0 kg
[~2019-04-08 17:11] MED LIST changes: +ALLO100T PO; -CARB200C4 PO; +CARB200C7 PO; +COR3.125T PO
[2019-04-08 18:27] LABS: BASOPHILS % (AUTO) 0.5 % (0-1); EOSINOPHILS # (AUTO) 0.1 X10'3 (0-0.9); HEMATOCRIT 35.2 % (42.0-52.0); HEMOGLOBIN 11.7 g/dl (14.0-17.9); LYMPHOCYTES % (AUTO) 33.8 % (21-51); MEAN CORPUSCULAR HEMOGLOBIN 29.6 PG (27.0-31.0); MEAN CORPUSCULAR HGB CONC 33.1 g/dL (33.0-36.5); MEAN CORPUSCULAR VOLUME 89.5 FL (78-98); MEAN PLATELET VOLUME 7.7 FL (7.4-10.4); MONOCYTES # (AUTO) 0.4 X10'3 (0-0.9); MONOCYTES % (AUTO) 11.9 % (2-12); NEUTROPHILS # (AUTO) 1.5 X10'3 (1.8-7.7); NEUTROPHILS % (AUTO) 49.8 % (42-75); PLATELET COUNT 220 X10'3 (140-440); RED BLOOD COUNT 3.93 X10'6 (4.70-6.10); RED CELL DISTRIBUTION WIDTH 16.3 % (11.5-14.5)
[2019-04-08 18:41] LABS: PARTIAL THROMBOPLASTIN TIME 30 SECONDS (22-32)
[2019-04-08 18:43] LABS: ALANINE AMINOTRANSFERASE 13 U/L (12-78); ALBUMIN 2.7 G/DL (3.4-5.0); ALBUMIN/GLOBULIN RATIO 0.5 (1.1-1.5); ALKALINE PHOSPHATASE 77 IU/L (46-116); ANION GAP 7 (8-16); ASPARTATE AMINO TRANSFERASE 17 U/L (10-37); BILIRUBIN,TOTAL 0.6 MG/DL (0.1-1.0); BLOOD UREA NITROGEN 14 MG/DL (7-18); BUN/CREATININE RATIO 8.9 (5.4-32.0); CALCIUM 8.7 MG/DL (8.5-10.1); CHLORIDE 106 MMOL/L (99-107); CREATININE 1.58 MG/DL (0.60-1.10); POTASSIUM 3.9 MMOL/L (3.5-5.1); SODIUM 140 MMOL/L (135-145); TOTAL CARBON DIOXIDE 26.8 MMOL/L (24-32); TOTAL PROTEIN 7.8 G/DL (6.4-8.2); eGFR 54 ML/MIN
[2019-04-08 18:46] LABS: GLUCOSE 94 MG/DL (70-104)
[2019-04-08 19:04] LABS: TOTAL CELLS COUNTED 100
[2019-04-08 19:05] LABS: ANISOCYTOSIS 1+; LARGE PLATELETS FEW; PLATELET ESTIMATE NORMAL
[2019-04-08] MEDS ORDERED: magnesium hydroxide 30ml (MOM) UD suspension PO PRN (19:35)
[2019-04-08] MEDS ORDERED: acetaminophen 325mg tablet PO PRN ×2 (19:35)
[2019-04-08] MEDS ORDERED: haloperidol lactate 5mg/ml inj IM PRN (19:35)
[2019-04-08] MEDS ORDERED: mag hydrox/Alum hydrox/simeth 30ml oral suspension PO PRN (19:35)
[2019-04-08] MEDS ORDERED: magnesium 2GM in 50ml NS 50 ML IV PRN (19:35)
[2019-04-08] MEDS ORDERED: haloperidol 5mg tablet PO PRN (19:35)
[2019-04-08] MEDS ORDERED: LORazepam 2 mg/ml vial IV PRN (19:35)
[2019-04-08] MEDS ORDERED: thiamine inj. 100 MG in normal saline 100ml IV soln 100 ML IV ONE (19:35)
[2019-04-08] MEDS ORDERED: potassium Cl 20 mEq SR tablet PO PRN (19:35)
[2019-04-08] MEDS ORDERED: ipratropium/albuterol 3ml nebule NEB PRN (19:35)
[2019-04-08] MEDS ORDERED: magnesium 4gm in 100ml NS 100 ML IV PRN (19:35)
[2019-04-08] MEDS ORDERED: ondansetron/PF 4mg/2ml inj IV PRN (19:35)
[2019-04-08] MEDS ORDERED: potassium CL 10mEq/100ml bag 100 ML IV PRN ×2 (19:35)
[2019-04-08] MEDS ORDERED: magnesium Cl slow-release 64mg tablet PO PRN (19:35)
[2019-04-08] MEDS: normal saline 1000ml 1,000 ML IV SCH (20:33)
[2019-04-08] MEDS: furosemide 40mg/4ml inj IV SCH (20:33)
[2019-04-08] MEDS ORDERED: nitroGLYCERIN 0.4mg SUBLingual tab SL PRN (20:40)
[2019-04-08] MEDS ORDERED: AMOX-422 PO (23:42)
[2019-04-09] VITALS (7 sets, daily range): BP systolic 92–121; BP diastolic 6–91
[2019-04-09] MEDS: heparin, porcine 5000 units/ml vial SQ SCH ×4 (00:29→23:30)
--- NOTE | 2019-04-09 00:37 | NUR ---
Patient in room ED 15. I have received report from albin ulloa and had the opportunity to ask questions and assume patient care.
--- NOTE | 2019-04-09 02:48 | NUR ---
pt resting comfortably, can turn himself in bed. no signs of distress noted
[2019-04-09] MEDS: normal saline 1000ml 1,000 ML IV SCH ×2 (05:32→07:47)
[2019-04-09 06:07] LABS: BASOPHILS % (AUTO) 0.5 % (0-1); EOSINOPHILS # (AUTO) 0.1 X10'3 (0-0.9); EOSINOPHILS % (AUTO) 4.7 % (0-6); HEMATOCRIT 36.4 % (42.0-52.0); HEMOGLOBIN 12.1 g/dl (14.0-17.9); LYMPHOCYTES # (AUTO) 1.2 X10'3 (1.1-4.8); LYMPHOCYTES % (AUTO) 41.7 % (21-51); MEAN CORPUSCULAR HEMOGLOBIN 29.9 PG (27.0-31.0); MEAN CORPUSCULAR HGB CONC 33.3 g/dL (33.0-36.5); MEAN CORPUSCULAR VOLUME 89.8 FL (78-98); MEAN PLATELET VOLUME 7.9 FL (7.4-10.4); MONOCYTES # (AUTO) 0.3 X10'3 (0-0.9); MONOCYTES % (AUTO) 11.4 % (2-12); NEUTROPHILS # (AUTO) 1.2 X10'3 (1.8-7.7); NEUTROPHILS % (AUTO) 41.7 % (42-75); PLATELET COUNT 206 X10'3 (140-440); RED BLOOD COUNT 4.06 X10'6 (4.70-6.10); RED CELL DISTRIBUTION WIDTH 16.7 % (11.5-14.5); WHITE BLOOD COUNT 2.8 X10'3 (4.5-11.0)
[2019-04-09 06:09] LABS: ALANINE AMINOTRANSFERASE 13 U/L (12-78); ALBUMIN 2.5 G/DL (3.4-5.0); ALBUMIN/GLOBULIN RATIO 0.5 (1.1-1.5); ALKALINE PHOSPHATASE 71 IU/L (46-116); AMYLASE 96 U/L (25-115); ANION GAP 8 (8-16); ASPARTATE AMINO TRANSFERASE 19 U/L (10-37); BILIRUBIN,TOTAL 0.6 MG/DL (0.1-1.0); BLOOD UREA NITROGEN 15 MG/DL (7-18); BUN/CREATININE RATIO 10.9 (5.4-32.0); CALCIUM 8.4 MG/DL (8.5-10.1); CHLORIDE 107 MMOL/L (99-107); CHOL/HDL RATIO 3.4 (0.00-4.99); CHOLESTEROL 86 MG/DL (0-200); CREATININE 1.37 MG/DL (0.60-1.10); HDL CHOLESTEROL 25 MG/DL (35-60); LDL CHOLESTEROL 58 MG/DL (50-100); LIPASE 133 U/L (73-393); MAGNESIUM 1.6 MG/DL (1.5-2.4); PHOSPHORUS 3.1 MG/DL (2.3-4.5); POTASSIUM 3.3 MMOL/L (3.5-5.1); SODIUM 140 MMOL/L (135-145); TOTAL CARBON DIOXIDE 24.8 MMOL/L (24-32); TOTAL PROTEIN 7.4 G/DL (6.4-8.2); TRIGLYCERIDES 74 MG/DL (20-135); eGFR 64 ML/MIN
[2019-04-09 06:10] LABS: GLUCOSE 87 MG/DL (70-104)
--- NOTE | 2019-04-09 06:27 | NUR ---
Problems reprioritized. Patient report given, questions answered & plan of care reviewed with MARK AND Anatoly RNS.
[2019-04-09] MEDS: furosemide 40mg/4ml inj IV SCH ×2 (07:47→20:14)
[2019-04-09] MEDS: aspirin 81mg tab.chew PO SCH (07:48)
[2019-04-09] MEDS: carVEDilol 3.125mg tablet PO SCH ×2 (07:48→20:14)
[2019-04-09] MEDS: lisinopril 2.5mg tablet PO SCH (07:49)
[2019-04-09] MEDS: spironolactone 25 MG tablet PO SCH (07:52)
[2019-04-09] MEDS: nicotine 7mg patch - 24hr TD SCH (07:53)
[2019-04-09] MEDS: potassium Cl 20 mEq SR tablet PO PRN ×2 (07:55→13:14)
[2019-04-09] MEDS: K and/or MAG REPLACEMENT MC SCH (08:14)
[2019-04-09 09:07] LABS: TOTAL CELLS COUNTED 100
[2019-04-09 09:08] LABS: ANISOCYTOSIS 1+; PLATELET ESTIMATE NORMAL; SMUDGE CELLS FEW
--- NOTE | 2019-04-09 10:01 | NUR ---
Patient in room PCU 3023. I have received report from LUZMA Stout and had the opportunity to ask questions and assume patient care. Pt sleeping. Will continue to monitor.
[2019-04-09] MEDS: MVI, adult No.4 with vit. K 10 ML in dextrose 5% water 500ml 500 ML IV SCH ×2 (13:14)
[2019-04-09] MEDS: thiamine inj. 100 MG, folic acid inj. 2 MG in normal saline 100ml IV soln 99 ML IV SCH (13:14)
[2019-04-09] MEDS ORDERED: nitroGLYCERIN 0.4mg SUBLingual tab SL PRN (14:05)
--- NOTE | 2019-04-09 18:30 | NUR ---
Patient in room PCU 3026. I have received report from evangelina ulloa and had the opportunity to ask questions and assume patient care.
--- NOTE | 2019-04-09 18:45 | NUR ---
Problems reprioritized. Patient report given, questions answered & plan of care reviewed with LUZMA Stout and LUZMA Tong.
--- NOTE | 2019-04-09 23:41 | NUR ---
Patient in room PCU 3026. I have received report from Vanessa SEGAL and had the opportunity to ask questions and assume patient care.
[2019-04-10 02:00] VITALS: BP 123/85
[2019-04-10 05:06] LABS: BASOPHILS % (AUTO) 0.9 % (0-1); EOSINOPHILS # (AUTO) 0.1 X10'3 (0-0.9); EOSINOPHILS % (AUTO) 3.8 % (0-6); HEMATOCRIT 37.5 % (42.0-52.0); HEMOGLOBIN 12.5 g/dl (14.0-17.9); LYMPHOCYTES % (AUTO) 31.8 % (21-51); MEAN CORPUSCULAR HEMOGLOBIN 29.5 PG (27.0-31.0); MEAN CORPUSCULAR HGB CONC 33.3 g/dL (33.0-36.5); MEAN CORPUSCULAR VOLUME 88.6 FL (78-98); MEAN PLATELET VOLUME 7.9 FL (7.4-10.4); MONOCYTES # (AUTO) 0.3 X10'3 (0-0.9); MONOCYTES % (AUTO) 9.4 % (2-12); NEUTROPHILS # (AUTO) 1.7 X10'3 (1.8-7.7); NEUTROPHILS % (AUTO) 54.1 % (42-75); PLATELET COUNT 224 X10'3 (140-440); RED BLOOD COUNT 4.23 X10'6 (4.70-6.10); RED CELL DISTRIBUTION WIDTH 16.7 % (11.5-14.5); WHITE BLOOD COUNT 3.1 X10'3 (4.5-11.0)
[2019-04-10 05:39] LABS: ALANINE AMINOTRANSFERASE 13 U/L (12-78); ALBUMIN 2.6 G/DL (3.4-5.0); ALBUMIN/GLOBULIN RATIO 0.5 (1.1-1.5); ALKALINE PHOSPHATASE 71 IU/L (46-116); AMYLASE 103 U/L (25-115); ANION GAP 8 (8-16); ASPARTATE AMINO TRANSFERASE 22 U/L (10-37); BILIRUBIN,TOTAL 0.7 MG/DL (0.1-1.0); BLOOD UREA NITROGEN 20 MG/DL (7-18); BUN/CREATININE RATIO 12.7 (5.4-32.0); CHLORIDE 103 MMOL/L (99-107); CREATININE 1.58 MG/DL (0.60-1.10); GLUCOSE 84 MG/DL (70-104); LIPASE 105 U/L (73-393); MAGNESIUM 1.6 MG/DL (1.5-2.4); PHOSPHORUS 3.1 MG/DL (2.3-4.5); SODIUM 136 MMOL/L (135-145); TOTAL CARBON DIOXIDE 24.8 MMOL/L (24-32); TOTAL PROTEIN 8.1 G/DL (6.4-8.2); eGFR 54 ML/MIN
--- NOTE | 2019-04-10 05:52 | NUR ---
Orientee documentation: I have reviewed and agree with all interventions, meds given, assessments performed and documented by Alycia SEGAL.
[2019-04-10 06:00] VITALS: BP 119/78
[2019-04-10 06:17] LABS: CALCIUM 8.9 MG/DL (8.5-10.1)
--- NOTE | 2019-04-10 06:42 | NUR ---
Problems reprioritized. Patient report given, questions answered & plan of care reviewed with Cecilia SEGAL.
--- NOTE | 2019-04-10 06:43 | NUR ---
Problems reprioritized. Patient report given, questions answered & plan of care reviewed with Dana SEGAL.
--- NOTE | 2019-04-10 06:45 | NUR ---
Patient in room PCU 3026. I have received report from Pretty RN and had the opportunity to ask questions and assume patient care.
[2019-04-10] MEDS: nicotine 7mg patch - 24hr TD SCH ×2 (08:00→12:59)
[2019-04-10] MEDS: K and/or MAG REPLACEMENT MC SCH (08:00)
[2019-04-10] MEDS: furosemide 40mg/4ml inj IV SCH ×2 (09:24→20:50)
[2019-04-10] MEDS: aspirin 81mg tab.chew PO SCH (09:25)
[2019-04-10] MEDS: carVEDilol 3.125mg tablet PO SCH ×2 (09:25→22:45)
[2019-04-10] MEDS: lisinopril 2.5mg tablet PO SCH (09:25)
[2019-04-10] MEDS: spironolactone 25 MG tablet PO SCH (09:26)
[2019-04-10] MEDS: heparin, porcine 5000 units/ml vial SQ SCH ×2 (09:29→16:14)
[2019-04-10] MEDS: thiamine inj. 100 MG, folic acid inj. 2 MG in normal saline 100ml IV soln 99 ML IV SCH (10:21)
[2019-04-10] MEDS: MVI, adult No.4 with vit. K 10 ML in dextrose 5% water 500ml 500 ML IV SCH ×2 (10:22)
[2019-04-10 11:00] VITALS: BP 110/79
[2019-04-10 15:00] VITALS: BP 116/84
--- NOTE | 2019-04-10 17:29 | NUR ---
Orientee documentation: I have reviewed and agree with all interventions, assessments performed and documented by LUZMA Farrar. Orientee Medication Administration: For this medication-pass time frame, all medication were reviewed, dispensed, administered and documented per hospital policy by LUZMA Farrar.
--- NOTE | 2019-04-10 18:00 | NUR ---
Patient in room PCU 3026. I have received report from Cecilia SEGAL and had the opportunity to ask questions and assume patient care.
--- NOTE | 2019-04-10 18:08 | NUR ---
Problems reprioritized. Patient report given, questions answered & plan of care reviewed with Ruby RN .
--- NOTE | 2019-04-10 18:45 | NUR ---
Patient in room PCU 3026. I have received report from Cecilia and Shweta Rns and had the opportunity to ask questions and assume patient care with Rosa SEGAL
[2019-04-10 19:00] VITALS: BP 116/77
--- NOTE | 2019-04-10 20:30 | NUR ---
pt SBP was 98 and then rechecked and 105. will not administer the coreg at this time and will reassess pt and continue to monitor pt BP throughout shift
--- NOTE | 2019-04-10 22:00 | NUR ---
BP reassessed , administered the coreg at this time
[2019-04-10 23:00] VITALS: BP 112/86
[2019-04-11] MEDS: heparin, porcine 5000 units/ml vial SQ SCH ×2 (00:21→09:57)
[2019-04-11 03:00] VITALS: BP 121/83
[2019-04-11 05:17] LABS: BASOPHILS % (AUTO) 0.8 % (0-1); EOSINOPHILS # (AUTO) 0.1 X10'3 (0-0.9); EOSINOPHILS % (AUTO) 3.8 % (0-6); HEMOGLOBIN 12.9 g/dl (14.0-17.9); LYMPHOCYTES % (AUTO) 26.1 % (21-51); MEAN CORPUSCULAR HEMOGLOBIN 29.6 PG (27.0-31.0); MEAN CORPUSCULAR HGB CONC 33.1 g/dL (33.0-36.5); MEAN CORPUSCULAR VOLUME 89.5 FL (78-98); MEAN PLATELET VOLUME 8.1 FL (7.4-10.4); MONOCYTES # (AUTO) 0.3 X10'3 (0-0.9); MONOCYTES % (AUTO) 8.6 % (2-12); NEUTROPHILS # (AUTO) 2.3 X10'3 (1.8-7.7); NEUTROPHILS % (AUTO) 60.7 % (42-75); PLATELET COUNT 231 X10'3 (140-440); RED BLOOD COUNT 4.36 X10'6 (4.70-6.10); RED CELL DISTRIBUTION WIDTH 16.9 % (11.5-14.5); WHITE BLOOD COUNT 3.7 X10'3 (4.5-11.0)
[2019-04-11 05:30] LABS: ALANINE AMINOTRANSFERASE 10 U/L (12-78); ALBUMIN 2.6 G/DL (3.4-5.0); ALBUMIN/GLOBULIN RATIO 0.4 (1.1-1.5); ALKALINE PHOSPHATASE 76 IU/L (46-116); AMYLASE 139 U/L (25-115); ANION GAP 8 (8-16); ASPARTATE AMINO TRANSFERASE 19 U/L (10-37); BILIRUBIN,TOTAL 0.5 MG/DL (0.1-1.0); BLOOD UREA NITROGEN 23 MG/DL (7-18); BUN/CREATININE RATIO 15.1 (5.4-32.0); CALCIUM 8.9 MG/DL (8.5-10.1); CHLORIDE 103 MMOL/L (99-107); CREATININE 1.52 MG/DL (0.60-1.10); GLUCOSE 106 MG/DL (70-104); LIPASE 219 U/L (73-393); MAGNESIUM 1.7 MG/DL (1.5-2.4); PHOSPHORUS 3.7 MG/DL (2.3-4.5); POTASSIUM 3.7 MMOL/L (3.5-5.1); SODIUM 136 MMOL/L (135-145); TOTAL CARBON DIOXIDE 25.4 MMOL/L (24-32); TOTAL PROTEIN 8.4 G/DL (6.4-8.2); eGFR 57 ML/MIN
[2019-04-11 06:00] VITALS: BP 121/87
--- NOTE | 2019-04-11 06:02 | NUR ---
Orientee documentation: I have reviewed and agree with all interventions, meds given,assessments performed and documented by Rosa SEGAL.
--- NOTE | 2019-04-11 06:21 | NUR ---
Problems reprioritized. Patient report given, questions answered & plan of care reviewed with Cecilia and Monique RNs.
--- NOTE | 2019-04-11 06:21 | NUR ---
Patient in room PCU 3026. I have received report from Argelia and Shweta RN's and had the opportunity to ask questions and assume patient care. Patient is pleasant this morning.
--- NOTE | 2019-04-11 06:23 | NUR ---
Problems reprioritized. Patient report given, questions answered & plan of care reviewed with Cecilia SEGAL.
[2019-04-11] MEDS: K and/or MAG REPLACEMENT MC SCH (08:00)
[2019-04-11] MEDS: thiamine inj. 100 MG, folic acid inj. 2 MG in normal saline 100ml IV soln 99 ML IV SCH (09:47)
[2019-04-11] MEDS: furosemide 40mg/4ml inj IV SCH (09:50)
[2019-04-11] MEDS: nicotine 7mg patch - 24hr TD SCH (09:50)
[2019-04-11] MEDS: carVEDilol 3.125mg tablet PO SCH (09:52)
[2019-04-11] MEDS: aspirin 81mg tab.chew PO SCH (09:52)
[2019-04-11] MEDS: spironolactone 25 MG tablet PO SCH (09:52)
[2019-04-11] MEDS: lisinopril 2.5mg tablet PO SCH (09:55)
[2019-04-11 11:00] VITALS: BP 107/72
[2019-04-11] MEDS: MVI, adult No.4 with vit. K 10 ML in dextrose 5% water 500ml 500 ML IV SCH ×2 (11:53)
[2019-04-11] MEDS ORDERED: LISI-604 PO (12:14)
[2019-04-11] MEDS ORDERED: SPIR25TA PO (12:14)
[2019-04-11] MEDS ORDERED: NICO-630 TD (12:14)
[2019-04-11] MEDS ORDERED: nicotine 7mg patch - 24hr TD SCH (12:46)
[2019-04-11 15:00] VITALS: BP 93/62
--- NOTE | 2019-04-11 16:45 | NUR ---
Patients PIV and tele monitor have been removed. PIV is intact. Patient has been educated on his Life Vest, respiratory failure, drug use cessation, medications, medication schedule, follow up with PCP in 1 week, seizures, and when to seek medical attention. Patient has been given clothing. His ride is in the room. Patient has no further questions at this time.
[2019-04-12] MEDS ORDERED: LORazepam 2 mg/ml vial IV PRN (19:35)
[2019-04-12] MEDS ORDERED: LORazepam 1 MG tablet PO PRN (19:35)
== END 2019-04-11 16:50 | disposition home or self-care (01) | DRG 194 ==
LOC: ER 17:12 → ED HOLD 20:59 → PCU 3S 04-09 01:15
PROVIDERS: ADMIT Family Medicine; ATTEND Family Medicine
DX: I13.0 Hypertensive heart and chronic kidney disease with heart failure and stage 1 through stage 4 chronic kidney disease, or unspecified chronic kidney disease (principal); I42.9 Cardiomyopathy, unspecified; N18.3 Chronic kidney disease, stage 3 (moderate); E78.00 Pure hypercholesterolemia, unspecified; I50.84 End stage heart failure; E87.6 Hypokalemia; I50.43 Acute on chronic combined systolic (congestive) and diastolic (congestive) heart failure; F15.10 Other stimulant abuse, uncomplicated; D72.819 Decreased white blood cell count, unspecified; F12.90 Cannabis use, unspecified, uncomplicated; F17.210 Nicotine dependence, cigarettes, uncomplicated; M19.90 Unspecified osteoarthritis, unspecified site; G25.81 Restless legs syndrome; G40.909 Epilepsy, unspecified, not intractable, without status epilepticus; I25.10 Atherosclerotic heart disease of native coronary artery without angina pectoris; Z91.14 Patient's other noncompliance with medication regimen; I25.2 Old myocardial infarction; Z59.0 Homelessness; Z88.8 Allergy status to other drugs, medicaments and biological substances; Z82.49 Family history of ischemic heart disease and other diseases of the circulatory system; Z79.899 Other long term (current) drug therapy; Z79.82 Long term (current) use of aspirin; Z71.51 Drug abuse counseling and surveillance of drug abuser
CPT/HCPCS: 36415; 71045; 80053; 80061; 82150; 83690; 83735; 83880; 84100; 84484; 85025; 85610; 85730; 87081; 93005; 93306; 94640; 94760; 97112; 97116; 97161; 97530; G0378; J1644; J1940; J3411; J3490; J7030; J7060

== ENCOUNTER 2019-06-26 20:54 | Emergency (ER) | payer MEDICAID ==
[~2019-06-26] VITALS: Ht 188 cm; Wt 81.0 kg
[~2019-06-26 20:54] MED LIST changes: -ALLO100T PO; -ATOR20TA PO; -CARB200C7 PO; -METO50TA16 PO; +NICO-630 TD; -POTA20TA19 PO; -ROPI1TAB4 PO; +SPIR25TA PO; -SPIR25TA5 PO
--- NOTE | 2019-06-26 21:40 | NUR ---
Pt reports "I may have drank too much and I might have snorted something" but patient is vague about his ETOH intake and drug use.
[2019-06-26 21:41] LABS: BASOPHILS % (AUTO) 0.9 % (0-1); EOSINOPHILS # (AUTO) 0.2 X10'3 (0-0.9); EOSINOPHILS % (AUTO) 4.7 % (0-6); HEMATOCRIT 38.5 % (42.0-52.0); HEMOGLOBIN 12.5 g/dl (14.0-17.9); LYMPHOCYTES # (AUTO) 0.9 X10'3 (1.1-4.8); LYMPHOCYTES % (AUTO) 26.7 % (21-51); MEAN CORPUSCULAR HEMOGLOBIN 29.5 PG (27.0-31.0); MEAN CORPUSCULAR HGB CONC 32.4 g/dL (33.0-36.5); MEAN CORPUSCULAR VOLUME 91.1 FL (78-98); MEAN PLATELET VOLUME 7.4 FL (7.4-10.4); MONOCYTES # (AUTO) 0.4 X10'3 (0-0.9); MONOCYTES % (AUTO) 12.4 % (2-12); NEUTROPHILS # (AUTO) 1.8 X10'3 (1.8-7.7); NEUTROPHILS % (AUTO) 55.3 % (42-75); PLATELET COUNT 250 X10'3 (140-440); RED BLOOD COUNT 4.23 X10'6 (4.70-6.10); RED CELL DISTRIBUTION WIDTH 16.4 % (11.5-14.5); WHITE BLOOD COUNT 3.3 X10'3 (4.5-11.0)
[2019-06-26 22:05] LABS: ALANINE AMINOTRANSFERASE 17 U/L (12-78); ALBUMIN 3.1 G/DL (3.4-5.0); ALBUMIN/GLOBULIN RATIO 0.5 (1.1-1.5); ALKALINE PHOSPHATASE 85 IU/L (46-116); ANION GAP 9 (8-16); ASPARTATE AMINO TRANSFERASE 28 U/L (10-37); BILIRUBIN,TOTAL 1.2 MG/DL (0.1-1.0); BLOOD UREA NITROGEN 19 MG/DL (7-18); BUN/CREATININE RATIO 12.3 (5.4-32.0); CALCIUM 8.8 MG/DL (8.5-10.1); CHLORIDE 106 MMOL/L (99-107); CREATININE 1.55 MG/DL (0.60-1.10); POTASSIUM 4.4 MMOL/L (3.5-5.1); SODIUM 139 MMOL/L (135-145); TOTAL CARBON DIOXIDE 24.5 MMOL/L (24-32); TOTAL PROTEIN 8.8 G/DL (6.4-8.2); eGFR 55 ML/MIN
[2019-06-26 22:06] LABS: GLUCOSE 99 MG/DL (70-104)
[2019-06-26] MEDS ORDERED: furosemide 10 MG/1 ML 10ml inj IV ONE (23:40)
[2019-06-26] MEDS ORDERED: furosemide 20 MG/2 ML vial IV ONE (23:40)
[2019-06-26] MEDS ORDERED: CefTRIAXone/D5W-Rocephin 1gm 50 ML IV ONE (23:55)
[2019-06-26] MEDS ORDERED: azithromycin 250mg tablet PO ONE (23:55)
[2019-06-27] MEDS ORDERED: normal saline 1000ML IV soln IVB ONE (00:05)
--- NOTE | 2019-06-27 00:56 | NUR ---
PT TO CT WITH HEALTH SERVICES COORDINATOR EM
[2019-06-27 01:28] LABS: CLARITY,URINE CLEAR (Clear); COLOR,URINE YELLOW (Yellow); GLUCOSE, URINE NEGATIVE (Neg); KETONES,URINE NEGATIVE (Neg); LEUKOCYTE ESTERASE ,URINE NEGATIVE (Neg); NITRITES, URINE NEGATIVE (Neg); OCCULT BLOOD,URINE NEGATIVE (Neg); PROTEIN,URINE 100 mg/dl (Neg)
[2019-06-27 01:30] LABS: UA COLLECTION TYPE CLN CATCH MIDSTREAM
[2019-06-27 01:31] LABS: URINE AMPHETAMINE SCREEN POSITIVE (Neg); URINE BARBITUATE SCREEN NEGATIVE (Neg); URINE BENZODIAZEPINES SCREEN NEGATIVE (Neg); URINE CANNABINOID SCREEN POSITIVE (Neg); URINE COCAINE SCREEN NEGATIVE (Neg); URINE METHADONE SCREEN NEGATIVE (Neg); URINE OPIATE SCREEN POSITIVE (Neg); URINE PHENCYCLIDINE SCREEN NEGATIVE (Neg)
[2019-06-27 01:45] LABS: BACTERIA,URINE NONE SEEN /HPF (Neg); HYALINE CASTS 0-3 /LPF (NEGATIVE); RBC,URINE NONE SEEN /HPF (0-2); SQUAMOUS EPITHELIAL CELL,UR FEW /LPF (FEW); WBC,URINE NONE SEEN /HPF (0-4)
[2019-06-27] MEDS ORDERED: FURO-149 PO (02:05)
[2019-06-27 03:38] VITALS: BP 119/83
== END 2019-06-27 03:40 | disposition home or self-care (01) ==
LOC: ER 20:55
DX: R91.8 Other nonspecific abnormal finding of lung field (principal); R06.02 Shortness of breath; I25.10 Atherosclerotic heart disease of native coronary artery without angina pectoris; I11.0 Hypertensive heart disease with heart failure; I50.9 Heart failure, unspecified; I25.2 Old myocardial infarction; M19.90 Unspecified osteoarthritis, unspecified site; F10.99 Alcohol use, unspecified with unspecified alcohol-induced disorder; F12.90 Cannabis use, unspecified, uncomplicated; F15.90 Other stimulant use, unspecified, uncomplicated; Z86.69 Personal history of other diseases of the nervous system and sense organs; Z59.0 Homelessness; Z56.0 Unemployment, unspecified; Z88.8 Allergy status to other drugs, medicaments and biological substances; Z79.899 Other long term (current) drug therapy; Y90.9 Presence of alcohol in blood, level not specified
CPT/HCPCS: 36415; 71045; 71250; 80053; 80305; 81001; 83605; 83880; 84484; 85025; 87040; 87502; 87503; 93005; 96365; 96375; 99284; J0696; J1940; J7040

== ENCOUNTER 2019-07-07 01:24 | Emergency (ER) | payer MEDICAID ==
[~2019-07-07] VITALS: Ht 188 cm; Wt 80.0 kg
[~2019-07-07 01:24] MED LIST changes: -ASPI-10 PO; +FURO-149 PO
[2019-07-07] MEDS ORDERED: ketorolac trometh. 30mg/ml inj. IV ONE (02:00)
[2019-07-07] MEDS ORDERED: nitroGLYCERIN 0.4mg SUBLingual tab SL PRN (02:05)
[2019-07-07 02:16] LABS: BASOPHILS % (AUTO) 1.2 % (0-1); EOSINOPHILS # (AUTO) 0.3 X10'3 (0-0.9); EOSINOPHILS % (AUTO) 8.5 % (0-6); HEMATOCRIT 33.9 % (42.0-52.0); HEMOGLOBIN 11.1 g/dl (14.0-17.9); LYMPHOCYTES # (AUTO) 0.9 X10'3 (1.1-4.8); LYMPHOCYTES % (AUTO) 24.3 % (21-51); MEAN CORPUSCULAR HEMOGLOBIN 29.3 PG (27.0-31.0); MEAN CORPUSCULAR HGB CONC 32.8 g/dL (33.0-36.5); MEAN CORPUSCULAR VOLUME 89.3 FL (78-98); MEAN PLATELET VOLUME 7.7 FL (7.4-10.4); MONOCYTES # (AUTO) 0.3 X10'3 (0-0.9); MONOCYTES % (AUTO) 9.2 % (2-12); NEUTROPHILS # (AUTO) 2.1 X10'3 (1.8-7.7); NEUTROPHILS % (AUTO) 56.8 % (42-75); PLATELET COUNT 244 X10'3 (140-440); RED BLOOD COUNT 3.79 X10'6 (4.70-6.10); RED CELL DISTRIBUTION WIDTH 16.2 % (11.5-14.5); WHITE BLOOD COUNT 3.7 X10'3 (4.5-11.0)
[2019-07-07] MEDS ORDERED: furosemide 10 MG/1 ML 10ml inj IV ONE (02:25)
[2019-07-07 02:33] LABS: ALANINE AMINOTRANSFERASE 15 U/L (12-78); ALBUMIN 2.8 G/DL (3.4-5.0); ALBUMIN/GLOBULIN RATIO 0.5 (1.1-1.5); ALKALINE PHOSPHATASE 83 IU/L (46-116); ANION GAP 8 (8-16); ASPARTATE AMINO TRANSFERASE 33 U/L (10-37); BILIRUBIN,TOTAL 0.4 MG/DL (0.1-1.0); BLOOD UREA NITROGEN 17 MG/DL (7-18); BUN/CREATININE RATIO 12.1 (5.4-32.0); CALCIUM 8.6 MG/DL (8.5-10.1); CHLORIDE 107 MMOL/L (99-107); CREATININE 1.41 MG/DL (0.60-1.10); SODIUM 140 MMOL/L (135-145); TOTAL CARBON DIOXIDE 25.5 MMOL/L (24-32); TOTAL PROTEIN 8.2 G/DL (6.4-8.2); eGFR 61 ML/MIN
[2019-07-07 02:47] LABS: GLUCOSE 93 MG/DL (70-104); POTASSIUM 3.9 MMOL/L (3.5-5.1)
[2019-07-07 03:00] VITALS: BP 140/103
== END 2019-07-07 03:59 | disposition home or self-care (01) ==
LOC: ER 01:24
DX: R07.89 Other chest pain (principal); I11.0 Hypertensive heart disease with heart failure; I50.9 Heart failure, unspecified; I25.10 Atherosclerotic heart disease of native coronary artery without angina pectoris; I25.2 Old myocardial infarction; M19.90 Unspecified osteoarthritis, unspecified site; F12.90 Cannabis use, unspecified, uncomplicated; F15.90 Other stimulant use, unspecified, uncomplicated; F17.200 Nicotine dependence, unspecified, uncomplicated; Z59.0 Homelessness; Z56.0 Unemployment, unspecified; Z98.890 Other specified postprocedural states; Z88.8 Allergy status to other drugs, medicaments and biological substances; Z79.899 Other long term (current) drug therapy; Z88.6 Allergy status to analgesic agent
CPT/HCPCS: 36415; 71045; 80053; 84484; 85025; 93005; 96374; 96375; 99284; J1885; J1940

== ENCOUNTER 2019-07-07 23:18 | Emergency (ER) | payer MEDICAID ==
[~2019-07-07] VITALS: Ht 188 cm; Wt 79.5 kg
[2019-07-07] MEDS ORDERED: ipratropium/albuterol 3ml nebule NEB ONE (23:40)
[2019-07-07] MEDS ORDERED: predniSONE 20 mg tablet PO ONE (23:40)
[2019-07-08 00:21] LABS: BASOPHILS # (AUTO) 0.1 X10'3 (0-0.2); BASOPHILS % (AUTO) 1.8 % (0-1); EOSINOPHILS # (AUTO) 0.2 X10'3 (0-0.9); EOSINOPHILS % (AUTO) 4.7 % (0-6); HEMATOCRIT 33.9 % (42.0-52.0); HEMOGLOBIN 11.6 g/dl (14.0-17.9); LYMPHOCYTES % (AUTO) 28.3 % (21-51); MEAN CORPUSCULAR HEMOGLOBIN 30.2 PG (27.0-31.0); MEAN CORPUSCULAR HGB CONC 34.1 g/dL (33.0-36.5); MEAN CORPUSCULAR VOLUME 88.6 FL (78-98); MEAN PLATELET VOLUME 7.6 FL (7.4-10.4); MONOCYTES # (AUTO) 0.4 X10'3 (0-0.9); MONOCYTES % (AUTO) 10.8 % (2-12); NEUTROPHILS # (AUTO) 1.9 X10'3 (1.8-7.7); NEUTROPHILS % (AUTO) 54.4 % (42-75); PLATELET COUNT 238 X10'3 (140-440); RED BLOOD COUNT 3.83 X10'6 (4.70-6.10); RED CELL DISTRIBUTION WIDTH 16.2 % (11.5-14.5); WHITE BLOOD COUNT 3.6 X10'3 (4.5-11.0)
[2019-07-08] MEDS ORDERED: furosemide 20MG tablet PO ONE (00:30)
[2019-07-08 00:43] LABS: ALANINE AMINOTRANSFERASE 13 U/L (12-78); ALBUMIN 2.8 G/DL (3.4-5.0); ALBUMIN/GLOBULIN RATIO 0.5 (1.1-1.5); ALKALINE PHOSPHATASE 86 IU/L (46-116); ANION GAP 8 (8-16); ASPARTATE AMINO TRANSFERASE 31 U/L (10-37); BILIRUBIN,TOTAL 0.6 MG/DL (0.1-1.0); BLOOD UREA NITROGEN 18 MG/DL (7-18); BUN/CREATININE RATIO 11.7 (5.4-32.0); CALCIUM 8.6 MG/DL (8.5-10.1); CHLORIDE 105 MMOL/L (99-107); CREATININE 1.54 MG/DL (0.60-1.10); POTASSIUM 3.5 MMOL/L (3.5-5.1); SODIUM 138 MMOL/L (135-145); TOTAL CARBON DIOXIDE 25.4 MMOL/L (24-32); TOTAL PROTEIN 8.3 G/DL (6.4-8.2); eGFR 55 ML/MIN
[2019-07-08 00:45] LABS: GLUCOSE 90 MG/DL (70-104)
[2019-07-08 01:12] VITALS: BP 150/76
[2019-07-08 01:37] LABS: URINE AMPHETAMINE SCREEN NEGATIVE (Neg); URINE BARBITUATE SCREEN NEGATIVE (Neg); URINE BENZODIAZEPINES SCREEN NEGATIVE (Neg); URINE CANNABINOID SCREEN NEGATIVE (Neg); URINE COCAINE SCREEN NEGATIVE (Neg); URINE METHADONE SCREEN NEGATIVE (Neg); URINE OPIATE SCREEN NEGATIVE (Neg); URINE PHENCYCLIDINE SCREEN NEGATIVE (Neg)
== END 2019-07-08 01:05 | disposition home or self-care (01) ==
LOC: ER 23:19
DX: R06.02 Shortness of breath (principal); I25.10 Atherosclerotic heart disease of native coronary artery without angina pectoris; I11.0 Hypertensive heart disease with heart failure; I50.9 Heart failure, unspecified; E78.00 Pure hypercholesterolemia, unspecified; I25.2 Old myocardial infarction; M19.90 Unspecified osteoarthritis, unspecified site; F12.90 Cannabis use, unspecified, uncomplicated; F15.90 Other stimulant use, unspecified, uncomplicated; F17.200 Nicotine dependence, unspecified, uncomplicated; Z87.01 Personal history of pneumonia (recurrent); Z98.890 Other specified postprocedural states; Z59.0 Homelessness; Z56.0 Unemployment, unspecified; Z88.8 Allergy status to other drugs, medicaments and biological substances; Z79.899 Other long term (current) drug therapy
CPT/HCPCS: 71045; 80053; 80305; 83880; 84484; 85025; 93005; 94640; 99284; J7512; 94760

== ENCOUNTER 2019-10-07 21:20 | Emergency (ER) | payer MEDICAID ==
[~2019-10-07] VITALS: Ht 188 cm; Wt 77.3 kg
[2019-10-07 22:16] LABS: BASOPHILS % (AUTO) 1.1 % (0-1); EOSINOPHILS # (AUTO) 0.1 X10'3 (0-0.9); EOSINOPHILS % (AUTO) 3.4 % (0-6); HEMATOCRIT 38.4 % (42.0-52.0); HEMOGLOBIN 12.4 g/dl (14.0-17.9); MEAN CORPUSCULAR HEMOGLOBIN 27.5 PG (27.0-31.0); MEAN CORPUSCULAR HGB CONC 32.3 g/dL (33.0-36.5); MEAN CORPUSCULAR VOLUME 85.2 FL (78-98); MEAN PLATELET VOLUME 7.9 FL (7.4-10.4); MONOCYTES # (AUTO) 0.4 X10'3 (0-0.9); MONOCYTES % (AUTO) 8.7 % (2-12); NEUTROPHILS # (AUTO) 2.7 X10'3 (1.8-7.7); NEUTROPHILS % (AUTO) 63.8 % (42-75); PLATELET COUNT 298 X10'3 (140-440); RED BLOOD COUNT 4.51 X10'6 (4.70-6.10); RED CELL DISTRIBUTION WIDTH 16.7 % (11.5-14.5); WHITE BLOOD COUNT 4.2 X10'3 (4.5-11.0)
[2019-10-07] MEDS ORDERED: MELO-102 PO (22:18)
[2019-10-07] MEDS ORDERED: COLC1TAB2 PO (22:18)
[2019-10-07] MEDS ORDERED: ROPI0.5T4 PO (22:18)
[2019-10-07] MEDS ORDERED: BUDE10.26 INH (22:18)
[2019-10-07] MEDS ORDERED: ALBUTEROL INH (22:18)
[2019-10-07] MEDS ORDERED: ASPI-1475 PO (22:18)
[2019-10-07] MEDS ORDERED: CARV3.122 PO (22:18)
[2019-10-07] MEDS ORDERED: FURO40TA4 PO (22:18)
[2019-10-07 22:23] LABS: PARTIAL THROMBOPLASTIN TIME 27 SECONDS (22-32)
[2019-10-07 22:30] LABS: ALANINE AMINOTRANSFERASE 12 U/L (12-78); ALBUMIN/GLOBULIN RATIO 0.5 (1.1-1.5); ALKALINE PHOSPHATASE 91 IU/L (46-116); ANION GAP 9 (8-16); ASPARTATE AMINO TRANSFERASE 29 U/L (10-37); BILIRUBIN,TOTAL 0.7 MG/DL (0.1-1.0); BLOOD UREA NITROGEN 29 MG/DL (7-18); BUN/CREATININE RATIO 16.6 (5.4-32.0); CHLORIDE 104 MMOL/L (99-107); CREATININE 1.75 MG/DL (0.60-1.10); POTASSIUM 4.5 MMOL/L (3.5-5.1); SODIUM 138 MMOL/L (135-145); TOTAL CARBON DIOXIDE 25.4 MMOL/L (24-32); TOTAL PROTEIN 8.8 G/DL (6.4-8.2); eGFR 48 ML/MIN
[2019-10-07 22:52] LABS: GLUCOSE 80 MG/DL (70-104)
[2019-10-07] MEDS ORDERED: furosemide 10 MG/1 ML 10ml inj IV ONE (23:30)
[2019-10-07 23:45] VITALS: BP 130/90
[2019-10-08] MEDS ORDERED: ALBU8.5H8 IH (00:02)
== END 2019-10-08 00:25 | disposition home or self-care (01) ==
LOC: ER 21:20
DX: I50.9 Heart failure, unspecified (principal); I11.0 Hypertensive heart disease with heart failure; J02.9 Acute pharyngitis, unspecified; I25.10 Atherosclerotic heart disease of native coronary artery without angina pectoris; E78.00 Pure hypercholesterolemia, unspecified; I25.2 Old myocardial infarction; M19.90 Unspecified osteoarthritis, unspecified site; F12.90 Cannabis use, unspecified, uncomplicated; F15.90 Other stimulant use, unspecified, uncomplicated; Z59.0 Homelessness; Z72.89 Other problems related to lifestyle; Z86.69 Personal history of other diseases of the nervous system and sense organs; Z56.0 Unemployment, unspecified; Z88.8 Allergy status to other drugs, medicaments and biological substances; Z79.82 Long term (current) use of aspirin; Z79.899 Other long term (current) drug therapy
CPT/HCPCS: 36415; 71045; 80053; 83880; 84145; 84484; 85025; 85610; 85730; 93005; 96374; 99285; J1940

== ENCOUNTER 2020-07-07 19:35 | Emergency (ER) | payer MEDICAID ==
[~2020-07-07] VITALS: Ht 188 cm; Wt 81.8 kg
[~2020-07-07 19:35] MED LIST changes: +ALBU8.5H8 IH; +ALBUTEROL INH; +ASPI-1475 PO; +BUDE10.26 INH; +CARV3.122 PO; +COLC1TAB2 PO; -COR3.125T PO; -FURO-149 PO; -FURO20TA4 PO; +FURO40TA4 PO; -LISI-604 PO; +MELO-102 PO; -NICO-630 TD; -NITR0.3T10 SL; +ROPI0.5T4 PO; -SPIR25TA PO
[2020-07-07] MEDS ORDERED: furosemide 40mg/4ml inj IV ONE (20:10)
[2020-07-07 20:13] LABS: ALANINE AMINOTRANSFERASE 18 U/L (12-78); ALBUMIN 2.6 G/DL (3.4-5.0); ALBUMIN/GLOBULIN RATIO 0.5 (1.1-1.5); ALKALINE PHOSPHATASE 98 IU/L (46-116); ANION GAP 12 (8-16); ASPARTATE AMINO TRANSFERASE 38 U/L (10-37); BILIRUBIN,TOTAL 0.9 MG/DL (0.1-1.0); BLOOD UREA NITROGEN 40 MG/DL (7-18); BUN/CREATININE RATIO 18.2 (5.4-32.0); CALCIUM 8.6 MG/DL (8.5-10.1); CHLORIDE 105 MMOL/L (99-107); POTASSIUM 3.3 MMOL/L (3.5-5.1); SODIUM 139 MMOL/L (135-145); TOTAL CARBON DIOXIDE 22.4 MMOL/L (24-32); TOTAL PROTEIN 8.3 G/DL (6.4-8.2); eGFR 37 ML/MIN
[2020-07-07 20:16] LABS: GLUCOSE 95 MG/DL (70-104)
[2020-07-07] MEDS ORDERED: POTASSIUM BICARB 20meq eff tab 20 MEQ TABLET.EFF PO ONE (20:30)
[2020-07-07 20:49] LABS: BASOPHILS % (AUTO) 1.1 % (0-1); EOSINOPHILS # (AUTO) 0.1 X10'3 (0-0.9); EOSINOPHILS % (AUTO) 1.8 % (0-6); HEMATOCRIT 39.3 % (42.0-52.0); HEMOGLOBIN 12.7 g/dl (14.0-17.9); LYMPHOCYTES # (AUTO) 0.9 X10'3 (1.1-4.8); LYMPHOCYTES % (AUTO) 25.2 % (21-51); MEAN CORPUSCULAR HEMOGLOBIN 27.6 PG (27.0-31.0); MEAN CORPUSCULAR HGB CONC 32.4 g/dL (33.0-36.5); MEAN CORPUSCULAR VOLUME 85.3 FL (78-98); MEAN PLATELET VOLUME 8.1 FL (7.4-10.4); MONOCYTES # (AUTO) 0.4 X10'3 (0-0.9); MONOCYTES % (AUTO) 12.3 % (2-12); NEUTROPHILS # (AUTO) 2.2 X10'3 (1.8-7.7); NEUTROPHILS % (AUTO) 59.6 % (42-75); PLATELET COUNT 248 X10'3 (140-440); RED BLOOD COUNT 4.61 X10'6 (4.70-6.10); RED CELL DISTRIBUTION WIDTH 17.7 % (11.5-14.5); WHITE BLOOD COUNT 3.6 X10'3 (4.5-11.0)
--- NOTE | 2020-07-07 21:39 | NUR ---
PATIENT'S FRIEND KADY PHONE NUMBER [phone]. STATES THAT HE CAN PICK PT UP IF BEING DISCHARGED
--- NOTE | 2020-07-07 23:09 | NUR ---
PATIENT'S SISTER VINICIUS [phone]
[2020-07-07] MEDS ORDERED: ROPINIRole 1mg tablet PO STA (23:17)
[2020-07-07 23:36] VITALS: BP 119/89
--- NOTE | 2020-07-07 23:37 | NUR ---
pt is prepared for dc. renetta blank talking with pt prior to dc. pt given roperinol for 10 otu of 10 pain from his restless leg syndrome
[2020-07-07] MEDS ORDERED: POTA20TA19 PO (23:42)
[2020-07-07] MEDS ORDERED: FURO40TA4 PO (23:42)
--- NOTE | 2020-07-07 23:55 | NUR ---
pt provided phone to call friend for a ride.
== END 2020-07-08 00:22 | disposition home or self-care (01) ==
LOC: ER 19:36
DX: I11.0 Hypertensive heart disease with heart failure (principal); I50.9 Heart failure, unspecified; R06.02 Shortness of breath; R05 Cough; R42 Dizziness and giddiness; I25.10 Atherosclerotic heart disease of native coronary artery without angina pectoris; E78.00 Pure hypercholesterolemia, unspecified; I25.2 Old myocardial infarction; J44.9 Chronic obstructive pulmonary disease, unspecified; M19.90 Unspecified osteoarthritis, unspecified site; M10.9 Gout, unspecified; F12.90 Cannabis use, unspecified, uncomplicated; F15.90 Other stimulant use, unspecified, uncomplicated; Z86.69 Personal history of other diseases of the nervous system and sense organs; Z87.01 Personal history of pneumonia (recurrent); Z98.890 Other specified postprocedural states; Z72.89 Other problems related to lifestyle; Z59.0 Homelessness; Z56.0 Unemployment, unspecified; Z88.8 Allergy status to other drugs, medicaments and biological substances; Z79.82 Long term (current) use of aspirin; Z79.899 Other long term (current) drug therapy
CPT/HCPCS: 36415; 71045; 80053; 83880; 84484; 85025; 93005; 96374; 99285; J1940

== ENCOUNTER 2020-07-28 23:32 | Emergency (ER) | payer MEDICAID ==
[~2020-07-28] VITALS: Ht 188 cm; Wt 84.1 kg
[2020-07-28] MEDS ORDERED: furosemide 40mg/4ml inj IV ONE (23:40)
[2020-07-29 00:33] LABS: EOSINOPHILS # (AUTO) 0.1 X10'3 (0-0.9); HEMOGLOBIN 12.5 g/dl (14.0-17.9); LYMPHOCYTES # (AUTO) 0.6 X10'3 (1.1-4.8); NEUTROPHILS # (AUTO) 4.6 X10'3 (1.8-7.7); PLATELET COUNT 306 X10'3 (140-440); WHITE BLOOD COUNT 5.8 X10'3 (4.5-11.0)
[2020-07-29 00:35] LABS: BASOPHILS % (AUTO) 0.6 % (0-1); EOSINOPHILS % (AUTO) 1.6 % (0-6); HEMATOCRIT 38.1 % (42.0-52.0); LYMPHOCYTES % (AUTO) 10.8 % (21-51); MEAN CORPUSCULAR HEMOGLOBIN 27.2 PG (27.0-31.0); MEAN CORPUSCULAR HGB CONC 32.8 g/dL (33.0-36.5); MEAN PLATELET VOLUME 7.5 FL (7.4-10.4); MONOCYTES # (AUTO) 0.5 X10'3 (0-0.9); MONOCYTES % (AUTO) 8.7 % (2-12); NEUTROPHILS % (AUTO) 78.3 % (42-75); RED CELL DISTRIBUTION WIDTH 18.3 % (11.5-14.5)
[2020-07-29 00:42] LABS: ALANINE AMINOTRANSFERASE 24 U/L (12-78); ALBUMIN 2.8 G/DL (3.4-5.0); ALBUMIN/GLOBULIN RATIO 0.5 (1.1-1.5); ALKALINE PHOSPHATASE 90 IU/L (46-116); ANION GAP 9 (8-16); ASPARTATE AMINO TRANSFERASE 38 U/L (10-37); BILIRUBIN,TOTAL 0.7 MG/DL (0.1-1.0); BLOOD UREA NITROGEN 47 MG/DL (7-18); BUN/CREATININE RATIO 18.7 (5.4-32.0); CALCIUM 8.7 MG/DL (8.5-10.1); CHLORIDE 102 MMOL/L (99-107); CREATININE 2.52 MG/DL (0.60-1.10); SODIUM 136 MMOL/L (135-145); TOTAL CARBON DIOXIDE 25.3 MMOL/L (24-32); TOTAL PROTEIN 8.3 G/DL (6.4-8.2); eGFR 31 ML/MIN
[2020-07-29 00:44] LABS: GLUCOSE 125 MG/DL (70-104)
--- NOTE | 2020-07-29 00:54 | NUR ---
contacted pharmacy about lasix not appearing in omni cell to medicate patient . Pharm Ky stated he would fix this issue NICOLA
[2020-07-29] MEDS ORDERED: furosemide 40mg/4ml inj IV ONE (00:55)
[2020-07-29] MEDS ORDERED: HYDROcodone/acetaminophen 10/325mg tab PO ONE (01:00)
[2020-07-29] MEDS ORDERED: furosemide 10 MG/1 ML 10ml inj IV ONE (01:10)
[2020-07-29] MEDS ORDERED: furosemide 20MG tablet PO ONE (01:15)
[2020-07-29 01:30] VITALS: BP 103/83
== END 2020-07-29 01:36 | disposition home or self-care (01) ==
LOC: ER 23:33
DX: R60.0 Localized edema (principal); M10.9 Gout, unspecified; M79.672 Pain in left foot; M79.671 Pain in right foot; I25.10 Atherosclerotic heart disease of native coronary artery without angina pectoris; I11.0 Hypertensive heart disease with heart failure; I50.9 Heart failure, unspecified; E78.00 Pure hypercholesterolemia, unspecified; I25.2 Old myocardial infarction; J44.9 Chronic obstructive pulmonary disease, unspecified; M19.90 Unspecified osteoarthritis, unspecified site; F12.90 Cannabis use, unspecified, uncomplicated; F15.90 Other stimulant use, unspecified, uncomplicated; Z86.69 Personal history of other diseases of the nervous system and sense organs; Z87.01 Personal history of pneumonia (recurrent); Z98.890 Other specified postprocedural states; Z72.89 Other problems related to lifestyle; Z59.0 Homelessness; Z56.0 Unemployment, unspecified; Z88.8 Allergy status to other drugs, medicaments and biological substances; Z79.82 Long term (current) use of aspirin; Z79.899 Other long term (current) drug therapy
CPT/HCPCS: 36415; 80053; 85025; 93005; 99284

== ENCOUNTER 2020-08-21 16:33 | Inpatient (IN) | payer MEDICAID ==
[~2020-08-21] VITALS: Ht 188 cm; Wt 84.0 kg
[~2020-08-21 16:33] MED LIST changes: -ALBUTEROL INH; +FURO40TA4 IV; -FURO40TA4 PO; -ROPI0.5T4 PO; +ROPI1TAB6 PO; +SPIR25TA5 PO
[2020-08-21] MEDS ORDERED: piperacillin/tazo 3.375gm/50ml 50 ML IV ONE (16:55)
[2020-08-21 17:31] LABS: BASOPHILS # (AUTO) 0.1 X10'3 (0-0.2); EOSINOPHILS % (AUTO) 0.1 % (0-6); HEMATOCRIT 31.5 % (42.0-52.0); HEMOGLOBIN 10.1 g/dl (14.0-17.9); LYMPHOCYTES # (AUTO) 0.7 X10'3 (1.1-4.8); LYMPHOCYTES % (AUTO) 5.3 % (21-51); MEAN CORPUSCULAR HEMOGLOBIN 25.8 PG (27.0-31.0); MEAN CORPUSCULAR HGB CONC 32.1 g/dL (33.0-36.5); MEAN CORPUSCULAR VOLUME 80.3 FL (78-98); MEAN PLATELET VOLUME 7.7 FL (7.4-10.4); MONOCYTES # (AUTO) 0.9 X10'3 (0-0.9); MONOCYTES % (AUTO) 7.1 % (2-12); NEUTROPHILS # (AUTO) 10.7 X10'3 (1.8-7.7); NEUTROPHILS % (AUTO) 86.5 % (42-75); PLATELET COUNT 557 X10'3 (140-440); RED BLOOD COUNT 3.92 X10'6 (4.70-6.10); RED CELL DISTRIBUTION WIDTH 19.3 % (11.5-14.5); WHITE BLOOD COUNT 12.4 X10'3 (4.5-11.0)
[2020-08-21 17:51] LABS: ALANINE AMINOTRANSFERASE 32 U/L (12-78); ALBUMIN 1.3 G/DL (3.4-5.0); ALBUMIN/GLOBULIN RATIO 0.2 (1.1-1.5); ALKALINE PHOSPHATASE 201 IU/L (46-116); ANION GAP 6 (8-16); ASPARTATE AMINO TRANSFERASE 28 U/L (10-37); BILIRUBIN,TOTAL 0.5 MG/DL (0.1-1.0); BLOOD UREA NITROGEN 37 MG/DL (7-18); BUN/CREATININE RATIO 30.8 (5.4-32.0); CALCIUM 9.1 MG/DL (8.5-10.1); CHLORIDE 97 MMOL/L (99-107); GLUCOSE 106 MG/DL (70-104); POTASSIUM 5.6 MMOL/L (3.5-5.1); SODIUM 129 MMOL/L (135-145); eGFR 74 ML/MIN
[2020-08-21 18:02] LABS: ANISOCYTOSIS 2+; ELLIPTOCYTES FEW; HYPOCHROMASIA 1+; PLATELET ESTIMATE INCREASED; POLYCHROMASIA FEW; ROULEAUX 1+; STOMATOCYTES FEW; TARGET CELLS FEW
[2020-08-21 18:03] LABS: SCHISTOCYTES FEW
[2020-08-21 18:14] LABS: CLARITY,URINE CLEAR (Clear); COLOR,URINE STRAW (Yellow); GLUCOSE, URINE NEGATIVE (Neg); KETONES,URINE NEGATIVE (Neg); LEUKOCYTE ESTERASE ,URINE NEGATIVE (Neg); NITRITES, URINE NEGATIVE (Neg); OCCULT BLOOD,URINE NEGATIVE (Neg); PROTEIN,URINE NEGATIVE (Neg); UROBILINOGEN,URINE 0.2 E.U/dL (0.2-1.0)
[2020-08-21 18:15] LABS: UA COLLECTION TYPE VOIDED
[2020-08-21] MEDS ORDERED: morphine 4 MG/ML inj SYRINge IV ONE (18:20)
[2020-08-21] MEDS ORDERED: iohexol 350MG/ML 100ml bottle IV ONE (18:40)
[2020-08-21] MEDS ORDERED: PRED5TAB PO (19:38)
[2020-08-21] MEDS ORDERED: FOND2.5D3 SUBCUT (19:38)
[2020-08-21] MEDS ORDERED: CEFT1VIA14 IV (19:38)
[2020-08-21] MEDS ORDERED: LISI2.5T2 PO (19:38)
[2020-08-21] MEDS ORDERED: LACT1CAP65 PO (19:38)
[2020-08-21] MEDS ORDERED: DOCU-148 PO (19:38)
[2020-08-21] MEDS ORDERED: VANC1VIA21 IV (19:38)
[2020-08-21] MEDS ORDERED: HYDR2TAB28 IV (19:50)
[2020-08-21] MEDS ORDERED: HYDR-3973 PO (19:50)
[2020-08-21] MEDS ORDERED: META-25 PO (19:50)
[2020-08-21] MEDS ORDERED: ONDA4TAB6 IV (19:50)
[2020-08-21] MEDS ORDERED: morphine 2 MG/ML inj. syringe IV PRN (20:05)
[2020-08-21] MEDS ORDERED: mag hydrox/Alum hydrox/simeth 30ml oral suspension PO PRN (20:05)
[2020-08-21] MEDS ORDERED: acetaminophen 325mg tablet PO PRN (20:05)
[2020-08-21] MEDS ORDERED: magnesium hydroxide 30ml (MOM) UD suspension PO PRN (20:05)
[2020-08-21] MEDS ORDERED: ondansetron/PF 4mg/2ml inj IV PRN ×2 (20:05→21:20)
[2020-08-21] MEDS ORDERED: SPIR25TA5 PO (20:10)
--- NOTE | 2020-08-21 20:50 | NUR ---
PT IS ASKIONG ABOUT A ROOM I LET HIM KNOW THAT WE ARE WAITING FOR A ROOM TO BECOME AVALIABLE, WILL CONTINUE TO MONITOR AND WILL GET PT SOMETHING TO EAT
[2020-08-21] MEDS: vancomycin/NS 1 GM ADD-VANTAGE 250 ML IV SCH (21:18)
[2020-08-21] MEDS ORDERED: albuterol 2.5 MG/3 ML nebule NEB PRN (21:20)
[2020-08-21] MEDS: normal saline 1000ml 1,000 ML IV SCH (21:33)
[2020-08-21] MEDS: HYDROmorphone inj. 0.5 MG/0.5 ML DISP.SYRIN IV PRN (21:33)
[2020-08-21 23:00] VITALS: BP 113/76
[2020-08-21] MEDS: ROPINIRole 1mg tablet PO SCH (23:24)
[2020-08-21] MEDS: lactobacillus rhamnosus 10,000 MMU CELLS/CAPSULE PO SCH (23:24)
[2020-08-21] MEDS: cefepime 1GM/NS ADD-VANTAGE 100 ML IV SCH (23:24)
[2020-08-22] MEDS: HYDROmorphone inj. 0.5 MG/0.5 ML DISP.SYRIN IV PRN ×3 (01:44→15:19)
[2020-08-22 02:00] VITALS: BP 119/79
[2020-08-22] MEDS: albuterol 2.5 MG/3 ML nebule NEB SCH ×4 (03:00→19:24)
--- NOTE | 2020-08-22 06:24 | NUR ---
Problems reprioritized. Patient report given, questions answered & plan of care reviewed with Do Philippe RN.
--- NOTE | 2020-08-22 06:35 | NUR ---
Patient in room PCU 3013. I have received report from Audelia SEGAL and had the opportunity to ask questions and assume patient care with Do SEGAL.
--- NOTE | 2020-08-22 06:40 | NUR ---
Patient in room PCU 3013. I have received report from Audelia SEGAL and had the opportunity to ask questions and assume patient care.
[2020-08-22 07:00] VITALS: BP 107/74
[2020-08-22 07:23] LABS: BASOPHILS # (AUTO) 0.1 X10'3 (0-0.2); BASOPHILS % (AUTO) 1.2 % (0-1); EOSINOPHILS % (AUTO) 0.2 % (0-6); HEMATOCRIT 31.2 % (42.0-52.0); HEMOGLOBIN 10.3 g/dl (14.0-17.9); LYMPHOCYTES # (AUTO) 0.8 X10'3 (1.1-4.8); LYMPHOCYTES % (AUTO) 9.1 % (21-51); MEAN CORPUSCULAR HEMOGLOBIN 26.1 PG (27.0-31.0); MEAN CORPUSCULAR VOLUME 79.1 FL (78-98); MEAN PLATELET VOLUME 7.6 FL (7.4-10.4); MONOCYTES % (AUTO) 10.9 % (2-12); NEUTROPHILS # (AUTO) 7.1 X10'3 (1.8-7.7); NEUTROPHILS % (AUTO) 78.6 % (42-75); PLATELET COUNT 522 X10'3 (140-440); RED BLOOD COUNT 3.95 X10'6 (4.70-6.10); RED CELL DISTRIBUTION WIDTH 19.2 % (11.5-14.5); WHITE BLOOD COUNT 9.1 X10'3 (4.5-11.0)
[2020-08-22 07:54] LABS: ALBUMIN 1.3 G/DL (3.4-5.0); ANION GAP 7 (8-16); BLOOD UREA NITROGEN 33 MG/DL (7-18); CHLORIDE 99 MMOL/L (99-107); POTASSIUM 4.5 MMOL/L (3.5-5.1); SODIUM 129 MMOL/L (135-145); TOTAL CARBON DIOXIDE 22.7 MMOL/L (24-32); eGFR > 90 ML/MIN
[2020-08-22 07:56] LABS: GLUCOSE 92 MG/DL (70-104)
[2020-08-22] MEDS ORDERED: FORMOTEROL FUMARATE INH SCH (08:00)
[2020-08-22] MEDS ORDERED: [UNRECOGNIZED DRUG - OTHER] INH SCH (08:00)
[2020-08-22] MEDS ORDERED: ibuprofen 200mg tablet PO PRN (08:00)
[2020-08-22] MEDS ORDERED: BUDESONIDE INH SCH (08:00)
[2020-08-22] MEDS: budesonide 0.5mg/2ml UD nebule IH SCH ×2 (08:21→19:24)
[2020-08-22] MEDS: HYDROcodone/acetaminophen 10/325mg tab PO PRN ×3 (08:37→21:38)
[2020-08-22] MEDS: cefepime 1GM/NS ADD-VANTAGE 100 ML IV SCH ×2 (08:58→15:08)
[2020-08-22] MEDS: enoxaparin 40mg/0.4ml syringe SUBCUT SCH (08:59)
[2020-08-22] MEDS: predniSONE 5mg tablet PO SCH (09:00)
[2020-08-22] MEDS: aspirin 81mg tablet.DR PO SCH (09:00)
[2020-08-22] MEDS: docusate sod 100mg capsule PO SCH ×2 (09:01→21:37)
[2020-08-22] MEDS: carVEDilol 3.125mg tablet PO SCH (09:01)
[2020-08-22] MEDS: lactobacillus rhamnosus 10,000 MMU CELLS/CAPSULE PO SCH ×2 (09:01→21:37)
[2020-08-22] MEDS: lisinopril 2.5mg tablet PO SCH (09:02)
[2020-08-22] MEDS: spironolactone 25 MG tablet PO SCH (09:02)
[2020-08-22] MEDS: vancomycin/NS 1 GM ADD-VANTAGE 250 ML IV SCH ×2 (10:33→21:37)
[2020-08-22 11:00] VITALS: BP 95/62
--- NOTE | 2020-08-22 13:43 | NUR ---
Pt admitted with cellulitis with open wounds of left leg. Wound care has been consulted, pending assessment at this time. Pt on a heart healthy diet, pending documentation of PO intake. Pt recently admitted and initially with 75-100% PO intake down to average 50% just prior to discharge on 08/14. Will continue to follow closely and monitor need for nutrition intervention. Addendum: 08/22/20 at [address] Amended: Links added.
[2020-08-22 15:00] VITALS: BP 94/61
[2020-08-22] MEDS: normal saline 1000ml 1,000 ML IV SCH (15:11)
[2020-08-22 18:00] VITALS: BP 95/63
--- NOTE | 2020-08-22 18:52 | NUR ---
Problems reprioritized. Patient report given, questions answered & plan of care reviewed with Yolanda SEGAL.
--- NOTE | 2020-08-22 18:53 | NUR ---
Problems reprioritized. Patient report given, questions answered & plan of care reviewed with Magda SEGAL.
--- NOTE | 2020-08-22 19:07 | NUR ---
Patient in room PCU 3013. I have received report from Do SEGAL and had the opportunity to ask questions and assume patient care.
[2020-08-22] MEDS: mineral oil/petrolatum, white cream 113gm jar TP SCH (20:00)
[2020-08-22] MEDS: ROPINIRole 1mg tablet PO SCH (21:37)
[2020-08-22 22:00] VITALS: BP 102/63
[2020-08-23] MEDS: HYDROcodone/acetaminophen 10/325mg tab PO PRN ×4 (01:36→19:59)
[2020-08-23] MEDS: cefepime 1GM/NS ADD-VANTAGE 100 ML IV SCH ×3 (01:36→15:41)
[2020-08-23 02:00] VITALS: BP 110/65
[2020-08-23] MEDS: albuterol 2.5 MG/3 ML nebule NEB SCH ×4 (03:09→20:15)
[2020-08-23] MEDS: normal saline 1000ml 1,000 ML IV SCH ×3 (04:45→17:01)
[2020-08-23 05:24] LABS: BASOPHILS # (AUTO) 0.1 X10'3 (0-0.2); EOSINOPHILS % (AUTO) 0.5 % (0-6); HEMATOCRIT 29.4 % (42.0-52.0); HEMOGLOBIN 9.6 g/dl (14.0-17.9); LYMPHOCYTES # (AUTO) 0.7 X10'3 (1.1-4.8); LYMPHOCYTES % (AUTO) 9.9 % (21-51); MEAN CORPUSCULAR HEMOGLOBIN 26.2 PG (27.0-31.0); MEAN CORPUSCULAR HGB CONC 32.8 g/dL (33.0-36.5); MEAN CORPUSCULAR VOLUME 79.9 FL (78-98); MEAN PLATELET VOLUME 7.1 FL (7.4-10.4); MONOCYTES # (AUTO) 0.8 X10'3 (0-0.9); MONOCYTES % (AUTO) 10.9 % (2-12); NEUTROPHILS # (AUTO) 5.4 X10'3 (1.8-7.7); NEUTROPHILS % (AUTO) 77.7 % (42-75); PLATELET COUNT 498 X10'3 (140-440); RED BLOOD COUNT 3.67 X10'6 (4.70-6.10); RED CELL DISTRIBUTION WIDTH 19.2 % (11.5-14.5); WHITE BLOOD COUNT 6.9 X10'3 (4.5-11.0)
[2020-08-23 05:32] LABS: ALBUMIN 1.2 G/DL (3.4-5.0); ANION GAP 9 (8-16); BLOOD UREA NITROGEN 30 MG/DL (7-18); BUN/CREATININE RATIO 26.3 (5.4-32.0); CHLORIDE 102 MMOL/L (99-107); CREATININE 1.14 MG/DL (0.60-1.10); POTASSIUM 5.2 MMOL/L (3.5-5.1); SODIUM 132 MMOL/L (135-145); TOTAL CARBON DIOXIDE 21.3 MMOL/L (24-32); eGFR 78 ML/MIN
[2020-08-23 05:35] LABS: GLUCOSE 100 MG/DL (70-104)
[2020-08-23 06:00] VITALS: BP 103/66
--- NOTE | 2020-08-23 06:00 | NUR ---
Problems reprioritized. Patient report given, questions answered & plan of care reviewed with Do SEGAL.
--- NOTE | 2020-08-23 06:35 | NUR ---
Patient in room PCU 3013. I have received report from Magda SEGAL and had the opportunity to ask questions and assume patient care Do SEGAL.
--- NOTE | 2020-08-23 06:36 | NUR ---
Patient in room PCU 3013. I have received report from Magda SEGAL and had the opportunity to ask questions and assume patient care.
[2020-08-23] MEDS: HYDROmorphone inj. 0.5 MG/0.5 ML DISP.SYRIN IV PRN ×2 (07:40→12:38)
[2020-08-23] MEDS: predniSONE 5mg tablet PO SCH (07:42)
[2020-08-23] MEDS: carVEDilol 3.125mg tablet PO SCH (07:42)
[2020-08-23] MEDS: docusate sod 100mg capsule PO SCH ×2 (07:45→19:58)
[2020-08-23] MEDS: lactobacillus rhamnosus 10,000 MMU CELLS/CAPSULE PO SCH ×2 (07:45→19:58)
[2020-08-23] MEDS: spironolactone 25 MG tablet PO SCH (07:45)
[2020-08-23] MEDS: aspirin 81mg tablet.DR PO SCH (07:45)
[2020-08-23] MEDS: enoxaparin 40mg/0.4ml syringe SUBCUT SCH (07:46)
[2020-08-23] MEDS: lisinopril 2.5mg tablet PO SCH (07:46)
[2020-08-23] MEDS: mineral oil/petrolatum, white cream 113gm jar TP SCH ×2 (08:11→20:00)
[2020-08-23] MEDS ORDERED: VANCOMYCIN LEVEL IV ONE (08:30)
[2020-08-23] MEDS: budesonide 0.5mg/2ml UD nebule IH SCH ×2 (09:51→20:15)
[2020-08-23 11:00] VITALS: BP 100/64
[2020-08-23] MEDS: vancomycin/NS 1 GM ADD-VANTAGE 250 ML IV SCH ×2 (11:34→21:46)
--- NOTE | 2020-08-23 14:13 | NUR ---
Patient states he has been trying to gain weight and was encouraged by provider from [facility] to eat double meals Addendum: 08/23/20 at 1442 by Sidra Sidhu RN Amended: Links added.
--- NOTE | 2020-08-23 14:30 | NUR ---
Patient states he has limit resources for food and accessing community resources has been difficult since the pandemic started Addendum: 08/23/20 at 1433 by Sidra Sidhu RN Amended: Links added.
[2020-08-23 15:00] VITALS: BP 96/66
[2020-08-23 18:00] VITALS: BP 98/63
--- NOTE | 2020-08-23 18:11 | NUR ---
Problems reprioritized. Patient report given, questions answered & plan of care reviewed with Magda SEGAL.
--- NOTE | 2020-08-23 18:24 | NUR ---
Problems reprioritized. Patient report given, questions answered & plan of care reviewed with Magda SEGAL.
--- NOTE | 2020-08-23 18:24 | NUR ---
Patient in room PCU 3013. I have received report from Do SEGAL and had the opportunity to ask questions and assume patient care.
[2020-08-23] MEDS: ROPINIRole 1mg tablet PO SCH (21:45)
[2020-08-23 22:25] VITALS: BP 102/64
[2020-08-24] MEDS: cefepime 1GM/NS ADD-VANTAGE 100 ML IV SCH ×4 (00:39→23:09)
[2020-08-24] MEDS: HYDROcodone/acetaminophen 10/325mg tab PO PRN ×3 (00:40→16:20)
[2020-08-24 02:47] VITALS: BP 99/70
[2020-08-24] MEDS: albuterol 2.5 MG/3 ML nebule NEB SCH ×4 (02:57→19:43)
[2020-08-24] MEDS: normal saline 1000ml 1,000 ML IV SCH ×3 (05:00→16:17)
[2020-08-24 05:16] LABS: BASOPHILS # (AUTO) 0.1 X10'3 (0-0.2); BASOPHILS % (AUTO) 1.8 % (0-1); EOSINOPHILS # (AUTO) 0.1 X10'3 (0-0.9); EOSINOPHILS % (AUTO) 0.9 % (0-6); HEMATOCRIT 30.2 % (42.0-52.0); HEMOGLOBIN 9.7 g/dl (14.0-17.9); LYMPHOCYTES # (AUTO) 0.6 X10'3 (1.1-4.8); LYMPHOCYTES % (AUTO) 8.7 % (21-51); MEAN CORPUSCULAR HEMOGLOBIN 25.9 PG (27.0-31.0); MEAN CORPUSCULAR HGB CONC 32.1 g/dL (33.0-36.5); MEAN CORPUSCULAR VOLUME 80.7 FL (78-98); MONOCYTES # (AUTO) 0.6 X10'3 (0-0.9); MONOCYTES % (AUTO) 9.2 % (2-12); NEUTROPHILS # (AUTO) 5.4 X10'3 (1.8-7.7); NEUTROPHILS % (AUTO) 79.4 % (42-75); PLATELET COUNT 523 X10'3 (140-440); RED BLOOD COUNT 3.74 X10'6 (4.70-6.10); RED CELL DISTRIBUTION WIDTH 19.5 % (11.5-14.5); WHITE BLOOD COUNT 6.7 X10'3 (4.5-11.0)
[2020-08-24 05:18] LABS: ALBUMIN 1.3 G/DL (3.4-5.0); ANION GAP 5 (8-16); BLOOD UREA NITROGEN 26 MG/DL (7-18); BUN/CREATININE RATIO 22.6 (5.4-32.0); CHLORIDE 101 MMOL/L (99-107); CREATININE 1.15 MG/DL (0.60-1.10); POTASSIUM 4.7 MMOL/L (3.5-5.1); SODIUM 129 MMOL/L (135-145); TOTAL CARBON DIOXIDE 22.9 MMOL/L (24-32); eGFR 77 ML/MIN
[2020-08-24 05:19] LABS: GLUCOSE 97 MG/DL (70-104)
--- NOTE | 2020-08-24 06:33 | NUR ---
Problems reprioritized. Patient report given, questions answered & plan of care reviewed with Rebecca RN.
--- NOTE | 2020-08-24 06:53 | NUR ---
RECEIVED REPORT FROM COLEMAN SEGAL, BOARD UPDATED
[2020-08-24] MEDS: budesonide 0.5mg/2ml UD nebule IH SCH ×2 (07:07→19:43)
[2020-08-24] MEDS: lactobacillus rhamnosus 10,000 MMU CELLS/CAPSULE PO SCH ×2 (07:17→20:31)
[2020-08-24] MEDS: docusate sod 100mg capsule PO SCH ×2 (07:17→20:31)
[2020-08-24] MEDS: predniSONE 5mg tablet PO SCH (07:18)
[2020-08-24] MEDS: aspirin 81mg tablet.DR PO SCH (07:18)
[2020-08-24] MEDS: lisinopril 2.5mg tablet PO SCH (07:24)
[2020-08-24] MEDS: carVEDilol 3.125mg tablet PO SCH (07:25)
[2020-08-24] MEDS: enoxaparin 40mg/0.4ml syringe SUBCUT SCH (07:27)
[2020-08-24 07:39] VITALS: BP 101/74
[2020-08-24] MEDS: mineral oil/petrolatum, white cream 113gm jar TP SCH ×2 (08:06→20:35)
[2020-08-24] MEDS: spironolactone 25 MG tablet PO SCH (08:06)
[2020-08-24] MEDS: vancomycin/NS 1 GM ADD-VANTAGE 250 ML IV SCH ×2 (09:27→20:30)
[2020-08-24] MEDS: HYDROmorphone inj. 0.5 MG/0.5 ML DISP.SYRIN IV PRN ×4 (09:34→23:09)
[2020-08-24 11:49] VITALS: BP 104/68
[2020-08-24 15:54] VITALS: BP 96/54
--- NOTE | 2020-08-24 16:34 | NUR ---
F/u 08/24: Pt has partial thickness cellulitis to L leg per [facility] w/ no open wounds at this time. Addendum: 08/24/20 at [address] Amended: Links added.
--- NOTE | 2020-08-24 18:00 | NUR ---
Patient in room PCU 3013. I have received report from Rebecca RN and had the opportunity to ask questions and assume patient care.
[2020-08-24 19:04] VITALS: BP 95/55
[2020-08-24] MEDS: ROPINIRole 1mg tablet PO SCH (20:31)
[2020-08-24 22:00] VITALS: BP 100/75
[2020-08-25] VITALS (28 sets, daily range): BP systolic 98–125; BP diastolic 63–92
[2020-08-25] MEDS: albuterol 2.5 MG/3 ML nebule NEB SCH ×4 (03:04→20:00)
[2020-08-25] MEDS: HYDROcodone/acetaminophen 10/325mg tab PO PRN ×3 (03:20→15:29)
[2020-08-25] MEDS: normal saline 1000ml 1,000 ML IV SCH ×2 (04:05→14:10)
--- NOTE | 2020-08-25 06:26 | NUR ---
Problems reprioritized. Patient report given, questions answered & plan of care reviewed with Rebecca Rn.
--- NOTE | 2020-08-25 06:34 | NUR ---
RECEIVED BEDSIDE REPORT FROM MARISA SEGAL. UP DATED BOARD FOR PT
[2020-08-25 07:02] LABS: BASOPHILS # (AUTO) 0.1 X10'3 (0-0.2); BASOPHILS % (AUTO) 1.4 % (0-1); EOSINOPHILS % (AUTO) 0.7 % (0-6); HEMATOCRIT 29.7 % (42.0-52.0); HEMOGLOBIN 9.7 g/dl (14.0-17.9); LYMPHOCYTES # (AUTO) 0.9 X10'3 (1.1-4.8); LYMPHOCYTES % (AUTO) 12.8 % (21-51); MEAN CORPUSCULAR HGB CONC 32.5 g/dL (33.0-36.5); MEAN CORPUSCULAR VOLUME 80.1 FL (78-98); MEAN PLATELET VOLUME 7.1 FL (7.4-10.4); MONOCYTES # (AUTO) 0.7 X10'3 (0-0.9); MONOCYTES % (AUTO) 9.3 % (2-12); NEUTROPHILS # (AUTO) 5.5 X10'3 (1.8-7.7); NEUTROPHILS % (AUTO) 75.8 % (42-75); PLATELET COUNT 488 X10'3 (140-440); RED BLOOD COUNT 3.71 X10'6 (4.70-6.10); RED CELL DISTRIBUTION WIDTH 19.9 % (11.5-14.5); WHITE BLOOD COUNT 7.3 X10'3 (4.5-11.0)
[2020-08-25] MEDS: HYDROmorphone inj. 0.5 MG/0.5 ML DISP.SYRIN IV PRN ×4 (07:02→21:28)
[2020-08-25] MEDS: aspirin 81mg tablet.DR PO SCH (07:03)
[2020-08-25] MEDS: spironolactone 25 MG tablet PO SCH (07:04)
[2020-08-25] MEDS: lisinopril 2.5mg tablet PO SCH (07:04)
[2020-08-25] MEDS: carVEDilol 3.125mg tablet PO SCH (07:04)
[2020-08-25] MEDS: docusate sod 100mg capsule PO SCH ×2 (07:04→21:25)
[2020-08-25] MEDS: lactobacillus rhamnosus 10,000 MMU CELLS/CAPSULE PO SCH ×2 (07:04→21:26)
[2020-08-25] MEDS: predniSONE 5mg tablet PO SCH (07:05)
[2020-08-25] MEDS: cefepime 1GM/NS ADD-VANTAGE 100 ML IV SCH ×3 (07:05→23:56)
[2020-08-25] MEDS: mineral oil/petrolatum, white cream 113gm jar TP SCH ×2 (07:06→20:00)
[2020-08-25] MEDS: budesonide 0.5mg/2ml UD nebule IH SCH ×2 (07:06→20:00)
--- NOTE | 2020-08-25 07:15 | NUR ---
PAGER ID: [phone] MESSAGE: [phone] CRISTINO CHU, HELD ENOXAPARIN FOR SURGERY TODAY
[2020-08-25 07:19] LABS: ALBUMIN 1.3 G/DL (3.4-5.0); ANION GAP 8 (8-16); BLOOD UREA NITROGEN 22 MG/DL (7-18); BUN/CREATININE RATIO 21.6 (5.4-32.0); CALCIUM 8.8 MG/DL (8.5-10.1); CHLORIDE 102 MMOL/L (99-107); CREATININE 1.02 MG/DL (0.60-1.10); POTASSIUM 4.5 MMOL/L (3.5-5.1); SODIUM 129 MMOL/L (135-145); TOTAL CARBON DIOXIDE 18.8 MMOL/L (24-32); eGFR 89 ML/MIN
[2020-08-25 07:21] LABS: GLUCOSE 87 MG/DL (70-104)
[2020-08-25] MEDS: enoxaparin 40mg/0.4ml syringe SUBCUT SCH (07:34)
[2020-08-25] MEDS: vancomycin/NS 1 GM ADD-VANTAGE 250 ML IV SCH ×2 (09:27→21:27)
[2020-08-25 10:17] LABS: ANISOCYTOSIS 2+; PLATELET ESTIMATE INCREASED
--- NOTE | 2020-08-25 11:52 | NUR ---
Initial: Pt admit DX L calf cellulitis w/ abscess, CHF, HTN, CKD III, chronic anemia, and hyponatremia hx meth-induced cardiomyopathy per EMR. Pt initially 75-100% avg heart healthy meals meeting needs.now NPO for OR pending L BKA today per EMR. Pt would benefit from protein ed once stable post-op and Jon ONS for wound healing if agreeable. Na 129 receiving NS. LBM 08/24. Will continue to monitor for additional protein needs post-op. Rec: 1. advance diet as medically indicated post-op to heart healthy 2. once PO post-op; consider Jon ONS BID for wound healing 3. routine bowel care 4. scaled wt this admit Addendum: 08/25/20 at [address] Amended: Links added.
[2020-08-25] MEDS ORDERED: famotidine/PF IV inj 20 MG in normal saline 100ml IV soln 100 ML IV SCH (14:50)
[2020-08-25] MEDS ORDERED: famotidine/PF 10 mg/ml inj IV ONE (15:00)
[2020-08-25] MEDS ORDERED: LIDOcaine 1% (10mg/ml) 2ml vial ONE (15:49)
[2020-08-25] MEDS ORDERED: DOBUTamine/D5W 500mg/250ml premix IV ONE (16:01)
[2020-08-25] MEDS ORDERED: MIDAZolam 1mg/ml 10ml vial ONE (16:30)
[2020-08-25] MEDS ORDERED: fentaNYL/PF 50MCG/1 ML 2ML syringe ONE ×2 (16:31→17:01)
[2020-08-25] MEDS ORDERED: midazolam 1 mg/ML 2ml injection ONE (16:31)
[2020-08-25] MEDS ORDERED: etomidate 2mg/ml inj. ONE (16:32)
[2020-08-25] MEDS ORDERED: desflurane 240ml liquid inh. IH ONE (16:37)
[2020-08-25] MEDS ORDERED: dexamethasone sod phosphate 10mg/ml inj ONE (16:37)
[2020-08-25] MEDS ORDERED: meperidine/PF 25mg/ml syringe IV PRN ×2 (16:40)
[2020-08-25] MEDS ORDERED: ringers solution, lacted 1,000 ML IV SCH (16:40)
[2020-08-25] MEDS ORDERED: morphine 2 MG/ML inj. syringe IV PRN (16:40)
[2020-08-25] MEDS ORDERED: proCHLORperazine 10 MG/2 ml inj IV PRN (16:40)
[2020-08-25] MEDS ORDERED: ondansetron/PF 4mg/2ml inj IV PRN (16:40)
[2020-08-25] MEDS ORDERED: BUPIVAcaine/PF 2.5 mg/ml (0.25%) 30ml vial ONE (17:00)
[2020-08-25] MEDS ORDERED: rocuronium 10mg/ml inj IV ONE (17:53)
--- NOTE | 2020-08-25 18:08 | NUR ---
Received from OR via BED, accompanied by Anesthesiologist and report given by Anesthesiologist. PATIENT IS LAYING SPINE ON BED WITH O2 10L MASK ON, RIGHT UPPER ARM PICC LINE IN PLACE, MARIA ELENA WRAP ON LEFT KNEE CDI, LEFT THIGH IS WARM TO TOUCH, WILL MONITOR. Addendum: 08/25/20 at 1911 by Margareth Tolbert RN Amended: Links added.
--- NOTE | 2020-08-25 18:19 | NUR ---
Patient in room PCU 3013. I have received report from blue and had the opportunity to ask questions and assume patient care.
[2020-08-25] MEDS: meperidine/PF 25mg/ml syringe IV PRN ×2 (19:06→19:18)
[2020-08-25] MEDS: morphine 4 MG/ML inj SYRINge IV PRN ×3 (19:39→20:02)
[2020-08-25] MEDS ORDERED: HYDROmorphone inj. 0.5 MG/0.5 ML DISP.SYRIN IV ONE ×2 (20:10→20:30)
--- NOTE | 2020-08-25 20:58 | NUR ---
Report called to receiving nurse TRU. Transferred via BED TWO SILVER RINGS IN A CUP SENT WITH PATIENT. PATIENT STATES PAIN IS IMPROVING, MARIA ELENA WRAP ON LEFT KNEE WITH SEROSANGUINOUS DRAINAGE, CHARGE NURSE AT BEDSIDE TO RECEIVE THE PATIENT, BLL, SIDE RAILS UP, CALL LIGHT GIVEN. Addendum: 08/25/20 at 2111 by Margareth Tolbert RN Amended: Links added.
[2020-08-25] MEDS: ROPINIRole 1mg tablet PO SCH (21:26)
--- NOTE | 2020-08-25 21:54 | NUR ---
Received report from Margareth SEGAL in pacu. Patient arrived to unit around 2114. Vitals stable. Pain still 10/10. Bed in lowest position. Call mcallister & personal items within reach.
[2020-08-26] VITALS (10 sets, daily range): BP systolic 96–107; BP diastolic 64–76
[2020-08-26] MEDS: normal saline 1000ml 1,000 ML IV SCH ×3 (00:07→19:00)
[2020-08-26] MEDS: HYDROmorphone inj. 0.5 MG/0.5 ML DISP.SYRIN IV PRN ×4 (01:13→20:15)
[2020-08-26] MEDS: albuterol 2.5 MG/3 ML nebule NEB SCH ×4 (03:00→19:52)
--- NOTE | 2020-08-26 06:00 | NUR ---
Patient in room PCU 3013. I have received report from Faheem SEGAL and had the opportunity to ask questions and assume patient care.
[2020-08-26 06:17] LABS: BASOPHILS # (AUTO) 0.1 X10'3 (0-0.2); BASOPHILS % (AUTO) 0.7 % (0-1); EOSINOPHILS % (AUTO) 0 % (0-6); HEMATOCRIT 28.3 % (42.0-52.0); HEMOGLOBIN 9.2 g/dl (14.0-17.9); LYMPHOCYTES # (AUTO) 0.9 X10'3 (1.1-4.8); LYMPHOCYTES % (AUTO) 8.5 % (21-51); MEAN CORPUSCULAR HGB CONC 32.4 g/dL (33.0-36.5); MEAN CORPUSCULAR VOLUME 80.2 FL (78-98); MEAN PLATELET VOLUME 6.9 FL (7.4-10.4); MONOCYTES # (AUTO) 0.9 X10'3 (0-0.9); MONOCYTES % (AUTO) 7.9 % (2-12); NEUTROPHILS # (AUTO) 9.2 X10'3 (1.8-7.7); NEUTROPHILS % (AUTO) 82.9 % (42-75); PLATELET COUNT 506 X10'3 (140-440); RED BLOOD COUNT 3.52 X10'6 (4.70-6.10); RED CELL DISTRIBUTION WIDTH 19.4 % (11.5-14.5); WHITE BLOOD COUNT 11.1 X10'3 (4.5-11.0)
--- NOTE | 2020-08-26 06:17 | NUR ---
Problems reprioritized. Patient report given, questions answered & plan of care reviewed with ilir SEGAL.
[2020-08-26 06:28] LABS: ALBUMIN 1.2 G/DL (3.4-5.0); ANION GAP 8 (8-16); BLOOD UREA NITROGEN 26 MG/DL (7-18); BUN/CREATININE RATIO 21.3 (5.4-32.0); CALCIUM 8.7 MG/DL (8.5-10.1); CHLORIDE 105 MMOL/L (99-107); CREATININE 1.22 MG/DL (0.60-1.10); POTASSIUM 5.1 MMOL/L (3.5-5.1); SODIUM 133 MMOL/L (135-145); TOTAL CARBON DIOXIDE 19.7 MMOL/L (24-32); eGFR 72 ML/MIN
[2020-08-26 06:29] LABS: GLUCOSE 106 MG/DL (70-104)
--- NOTE | 2020-08-26 06:46 | NUR ---
Patient in room PCU 3013. I have received report from Faheem SEGAL and had the opportunity to ask questions and assume patient care.
[2020-08-26] MEDS: cefepime 1GM/NS ADD-VANTAGE 100 ML IV SCH ×2 (07:37→16:09)
[2020-08-26] MEDS: lactobacillus rhamnosus 10,000 MMU CELLS/CAPSULE PO SCH ×2 (07:38→18:59)
[2020-08-26] MEDS: docusate sod 100mg capsule PO SCH ×2 (07:38→19:00)
[2020-08-26] MEDS: aspirin 81mg tablet.DR PO SCH (07:38)
[2020-08-26] MEDS: enoxaparin 40mg/0.4ml syringe SUBCUT SCH (07:38)
[2020-08-26] MEDS: lisinopril 2.5mg tablet PO SCH (07:39)
[2020-08-26] MEDS: predniSONE 5mg tablet PO SCH (07:39)
[2020-08-26] MEDS: carVEDilol 3.125mg tablet PO SCH (07:39)
[2020-08-26] MEDS: spironolactone 25 MG tablet PO SCH (07:39)
[2020-08-26] MEDS: HYDROcodone/acetaminophen 10/325mg tab PO PRN ×2 (07:40→09:13)
[2020-08-26] MEDS: mineral oil/petrolatum, white cream 113gm jar TP SCH ×2 (07:58→19:01)
[2020-08-26] MEDS: budesonide 0.5mg/2ml UD nebule IH SCH ×2 (08:00→19:51)
[2020-08-26 08:05] LABS: LARGE PLATELETS FEW; PLATELET ESTIMATE INCREASED
[2020-08-26 08:06] LABS: ANISOCYTOSIS 2+; HYPOCHROMASIA 1+; POIKILOCYTOSIS 1+
[2020-08-26] MEDS ORDERED: oxyCODONE IR 5mg (immed. release) tablet PO PRN (09:20)
[2020-08-26] MEDS: vancomycin/NS 1 GM ADD-VANTAGE 250 ML IV SCH ×2 (10:30→20:15)
[2020-08-26] MEDS: oxyCODONE IR 5mg (immed. release) tablet PO PRN ×4 (10:40→23:04)
--- NOTE | 2020-08-26 16:00 | NUR ---
PAGE TO CHASE REMINDER FOR GABAPENTIN ORDER ON VLAD GREGG 4387N [facility], THANK YOU! YAKELIN EXT [phone]
--- NOTE | 2020-08-26 18:06 | NUR ---
Problems reprioritized. Patient report given, questions answered & plan of care reviewed with Faheem RN.
--- NOTE | 2020-08-26 18:09 | NUR ---
Problems reprioritized. Patient report given, questions answered & plan of care reviewed with LUZMA Mayen. Patient stable at time of transfer.
--- NOTE | 2020-08-26 18:17 | NUR ---
Patient in room PCU 3013. I have received report from Almas and had the opportunity to ask questions and assume patient care.
--- NOTE | 2020-08-26 19:45 | NUR ---
PAGER ID: [phone] MESSAGE: [phone] Rod Garcia. 65 Male who had a left BKA yesterday. I gave him 20mg oxycodone at 1900. The patient is still complaining of 10/10 pain. He has IV dilaudid 0.5mg that I was wondering if it was okay to give. Thank you, Faheem RN [phone]
[2020-08-26] MEDS: ROPINIRole 1mg tablet PO SCH (20:15)
[2020-08-27] MEDS: cefepime 1GM/NS ADD-VANTAGE 100 ML IV SCH ×3 (00:03→15:23)
[2020-08-27] MEDS: HYDROmorphone inj. 0.5 MG/0.5 ML DISP.SYRIN IV PRN ×4 (00:04→15:27)
[2020-08-27 02:00] VITALS: BP 115/68
--- NOTE | 2020-08-27 02:29 | NUR ---
PAGER ID: [phone] MESSAGE: [phone] Rod Garcia. Patient had a left bka on tuesday. He is stating his 20mg oxycodone has not worked at all. He is requesting Percocet instead stating those work better. Thank you, Faheem RN [phone]
[2020-08-27] MEDS: oxyCODONE/APAP 10/325mg tablet PO PRN ×3 (02:51→15:17)
--- NOTE | 2020-08-27 06:05 | NUR ---
Patient in room PCU 3013. I have received report from Faheem SEGAL and had the opportunity to ask questions and assume patient care.
--- NOTE | 2020-08-27 06:29 | NUR ---
Problems reprioritized. Patient report given, questions answered & plan of care reviewed with qamar SEGAL.
[2020-08-27 07:00] VITALS: BP 106/61
[2020-08-27] MEDS: budesonide 0.5mg/2ml UD nebule IH SCH (08:00)
[2020-08-27] MEDS: albuterol 2.5 MG/3 ML nebule NEB SCH ×2 (08:10→15:00)
--- NOTE | 2020-08-27 08:11 | NUR ---
PT. REFUSED 0800 SVN
[2020-08-27] MEDS ORDERED: VANCOMYCIN LEVEL IV ONE (08:30)
[2020-08-27 09:07] LABS: BASOPHILS # (AUTO) 0.1 X10'3 (0-0.2); BASOPHILS % (AUTO) 0.7 % (0-1); EOSINOPHILS # (AUTO) 0.1 X10'3 (0-0.9); EOSINOPHILS % (AUTO) 1.1 % (0-6); HEMATOCRIT 28.5 % (42.0-52.0); HEMOGLOBIN 9.3 g/dl (14.0-17.9); LYMPHOCYTES % (AUTO) 13.3 % (21-51); MEAN CORPUSCULAR HEMOGLOBIN 26.5 PG (27.0-31.0); MEAN CORPUSCULAR HGB CONC 32.7 g/dL (33.0-36.5); MEAN PLATELET VOLUME 7.1 FL (7.4-10.4); MONOCYTES # (AUTO) 0.9 X10'3 (0-0.9); MONOCYTES % (AUTO) 12.1 % (2-12); NEUTROPHILS # (AUTO) 5.5 X10'3 (1.8-7.7); NEUTROPHILS % (AUTO) 72.8 % (42-75); PLATELET COUNT 448 X10'3 (140-440); RED BLOOD COUNT 3.51 X10'6 (4.70-6.10); RED CELL DISTRIBUTION WIDTH 20.4 % (11.5-14.5); WHITE BLOOD COUNT 7.5 X10'3 (4.5-11.0)
[2020-08-27] MEDS: vancomycin/NS 1 GM ADD-VANTAGE 250 ML IV SCH (09:15)
[2020-08-27] MEDS: enoxaparin 40mg/0.4ml syringe SUBCUT SCH (09:18)
[2020-08-27] MEDS: predniSONE 5mg tablet PO SCH (09:19)
[2020-08-27] MEDS: spironolactone 25 MG tablet PO SCH (09:19)
[2020-08-27] MEDS: lactobacillus rhamnosus 10,000 MMU CELLS/CAPSULE PO SCH (09:19)
[2020-08-27] MEDS: carVEDilol 3.125mg tablet PO SCH (09:19)
[2020-08-27] MEDS: lisinopril 2.5mg tablet PO SCH (09:19)
[2020-08-27] MEDS: docusate sod 100mg capsule PO SCH (09:19)
--- NOTE | 2020-08-27 09:25 | NUR ---
Dr. Chung aware of vanco trough 24.9. Carlos from pharmacy called requesting to stop Vanco and pull it. Vanco has been stopped, is aware and working alternative pain meds. Will continue to monitor.
[2020-08-27] MEDS: aspirin 81mg tablet.DR PO SCH (09:27)
[2020-08-27] MEDS: mineral oil/petrolatum, white cream 113gm jar TP SCH (09:28)
[2020-08-27 09:33] LABS: ALANINE AMINOTRANSFERASE 28 U/L (12-78); ALBUMIN 1.3 G/DL (3.4-5.0); ALBUMIN/GLOBULIN RATIO 0.2 (1.1-1.5); ALKALINE PHOSPHATASE 127 IU/L (46-116); ANION GAP 8 (8-16); ASPARTATE AMINO TRANSFERASE 33 U/L (10-37); BILIRUBIN,TOTAL 0.4 MG/DL (0.1-1.0); BLOOD UREA NITROGEN 22 MG/DL (7-18); BUN/CREATININE RATIO 21.2 (5.4-32.0); CALCIUM 8.9 MG/DL (8.5-10.1); CHLORIDE 102 MMOL/L (99-107); CREATININE 1.04 MG/DL (0.60-1.10); GLUCOSE 118 MG/DL (70-104); POTASSIUM 4.2 MMOL/L (3.5-5.1); SODIUM 131 MMOL/L (135-145); TOTAL CARBON DIOXIDE 21.3 MMOL/L (24-32); TOTAL PROTEIN 6.8 G/DL (6.4-8.2); eGFR 87 ML/MIN
[2020-08-27 09:35] LABS: VANCOMYCIN,TROUGH 24.2 UG/ML (6.0-14.0)
[2020-08-27] MEDS ORDERED: gabapentin 400mg capsule PO SCH (09:50)
[2020-08-27 10:22] LABS: ANISOCYTOSIS 3+; HYPOCHROMASIA 1+; PLATELET ESTIMATE NORMAL; SCHISTOCYTES FEW
--- NOTE | 2020-08-27 10:33 | NUR ---
Dr. Chung spoke to nurse about BKA from left leg. Do not remove any dressing for four days and Dr. Tapia is aware too.
[2020-08-27 11:00] VITALS: BP 100/64
--- NOTE | 2020-08-27 15:11 | NUR ---
PT REFUSED 1500 SVN
--- NOTE | 2020-08-27 15:30 | NUR ---
Wound Pictures were not taken upon discharge. BKA was done and surgery site was covered until surgeons response.
--- NOTE | 2020-08-27 16:00 | NUR ---
Problems reprioritized. Patient report given, questions answered & plan of care reviewed with Dejah SEGAL at [facility]. MD chen to transfer to [facility]. All items were collected and bagged and given to the patient to go to [facility].
--- NOTE | 2020-08-27 16:01 | NUR ---
ARM two assistance accompanied patient in transferring to care one at [facility]. Patients items were collected and sent via patient bags. Jewlery and can and glasses were sent with patient for transfer per [facility]. Patient paperwork were collected and sent with patient. Report was called into Dejah SEGAL. TAWANNA PICC line dressings were changed but sent to [facility] at [facility]. All questions were answered and patient was sent with patient via [place]
[2020-08-27] MEDS ORDERED: VANCOMYCIN 750MG IV in NS 250 ML IV SCH (21:00)
[2020-08-29] MEDS ORDERED: VANCOMYCIN LEVEL IV ONE (08:30)
== END 2020-08-27 17:09 | DRG 305 ==
LOC: ER 16:34 → ED HOLD 20:01 → PCU 3S 22:50
PROVIDERS: ADMIT Family Medicine; ATTEND Internal Medicine
PROC: B42G1ZZ Computerized Tomography (CT Scan) of Left Lower Extremity Arteries using Low Osmolar Contrast (ICD-10-PCS; 2020-08-21)
PROC: 0Y6J0Z1 Detachment at Left Lower Leg, High, Open Approach (ICD-10-PCS; principal; 2020-08-25 16:37)
DX: E11.52 Type 2 diabetes mellitus with diabetic peripheral angiopathy with gangrene (principal); I42.7 Cardiomyopathy due to drug and external agent; I50.22 Chronic systolic (congestive) heart failure; L02.416 Cutaneous abscess of left lower limb; L03.116 Cellulitis of left lower limb; L97.929 Non-pressure chronic ulcer of unspecified part of left lower leg with unspecified severity; D64.9 Anemia, unspecified; E78.00 Pure hypercholesterolemia, unspecified; E87.1 Hypo-osmolality and hyponatremia; F15.90 Other stimulant use, unspecified, uncomplicated; F17.210 Nicotine dependence, cigarettes, uncomplicated; G40.909 Epilepsy, unspecified, not intractable, without status epilepticus; S81.802A Unspecified open wound, left lower leg, initial encounter; X58.XXXA Exposure to other specified factors, initial encounter; I25.10 Atherosclerotic heart disease of native coronary artery without angina pectoris; Z20.822 Contact with and (suspected) exposure to COVID-19; J44.9 Chronic obstructive pulmonary disease, unspecified; E11.22 Type 2 diabetes mellitus with diabetic chronic kidney disease; N18.30 Chronic kidney disease, stage 3 unspecified; M19.90 Unspecified osteoarthritis, unspecified site; I13.0 Hypertensive heart and chronic kidney disease with heart failure and stage 1 through stage 4 chronic kidney disease, or unspecified chronic kidney disease; M10.9 Gout, unspecified; F12.90 Cannabis use, unspecified, uncomplicated; I25.2 Old myocardial infarction; Z59.0 Homelessness; Z88.8 Allergy status to other drugs, medicaments and biological substances; Z82.49 Family history of ischemic heart disease and other diseases of the circulatory system; Z79.899 Other long term (current) drug therapy; Y93.89 Activity, other specified; Y92.89 Other specified places as the place of occurrence of the external cause; Y99.8 Other external cause status
CPT/HCPCS: 36415; 71045; 73706; 76937; 80048; 80053; 80202; 81003; 82948; 83605; 83735; 84145; 85008; 85025; 85651; 85730; 86140; 86885; 86900; 86901; 86920; 87040; 87081; 87426; 93005; 93925; 93970; 94640; 94760; 96374; 96375; 99285; A4215; A4618; A6222; A6258; A6446; A6449; A7000; G0378; J0692; J1100; J1170; J1250; J1650; J2001; J2175; J2250; J2270; J2543; J3010; J3370; J3490; J7030; J7040; J7512; J7626; Q9967

== ENCOUNTER 2020-09-15 17:55 | Inpatient (IN) | payer MEDICAID ==
[~2020-09-15] VITALS: Ht 188 cm; Wt 63.6 kg
[~2020-09-15 17:55] MED LIST changes: +CEFT1VIA14 IV; +DOCU-148 PO; +FOND2.5D3 SUBCUT; -FURO40TA4 IV; +FURO40TA4 PO; +HYDR-3973 PO; +HYDR2TAB28 IV; +LACT1CAP65 PO; +LISI2.5T2 PO; +META-25 PO; +ONDA4TAB6 IV; +PRED5TAB PO; +VANC1VIA21 IV
[2020-09-15 20:00] LABS: BASOPHILS % (AUTO) 0.4 % (0-1); EOSINOPHILS # (AUTO) 0.1 X10'3 (0-0.9); EOSINOPHILS % (AUTO) 1.5 % (0-6); HEMATOCRIT 29.1 % (42.0-52.0); HEMOGLOBIN 9.2 g/dl (14.0-17.9); LYMPHOCYTES # (AUTO) 1.7 X10'3 (1.1-4.8); LYMPHOCYTES % (AUTO) 27.7 % (21-51); MEAN CORPUSCULAR HEMOGLOBIN 25.8 PG (27.0-31.0); MEAN CORPUSCULAR HGB CONC 31.7 g/dL (33.0-36.5); MEAN CORPUSCULAR VOLUME 81.5 FL (78-98); MEAN PLATELET VOLUME 6.6 FL (7.4-10.4); MONOCYTES # (AUTO) 0.6 X10'3 (0-0.9); MONOCYTES % (AUTO) 10.4 % (2-12); NEUTROPHILS # (AUTO) 3.7 X10'3 (1.8-7.7); PLATELET COUNT 598 X10'3 (140-440); RED BLOOD COUNT 3.57 X10'6 (4.70-6.10); RED CELL DISTRIBUTION WIDTH 20.9 % (11.5-14.5); WHITE BLOOD COUNT 6.2 X10'3 (4.5-11.0)
[2020-09-15 20:12] LABS: ALANINE AMINOTRANSFERASE 51 U/L (12-78); ALBUMIN 1.9 G/DL (3.4-5.0); ALBUMIN/GLOBULIN RATIO 0.3 (1.1-1.5); ALKALINE PHOSPHATASE 324 IU/L (46-116); ANION GAP 7 (8-16); ASPARTATE AMINO TRANSFERASE 32 U/L (10-37); BILIRUBIN,TOTAL 0.3 MG/DL (0.1-1.0); BLOOD UREA NITROGEN 48 MG/DL (7-18); BUN/CREATININE RATIO 44.4 (5.4-32.0); CALCIUM 9.8 MG/DL (8.5-10.1); CHLORIDE 100 MMOL/L (99-107); CREATININE 1.08 MG/DL (0.60-1.10); GLUCOSE 120 MG/DL (70-104); POTASSIUM 5.1 MMOL/L (3.5-5.1); SODIUM 131 MMOL/L (135-145); TOTAL CARBON DIOXIDE 23.7 MMOL/L (24-32); TOTAL PROTEIN 8.7 G/DL (6.4-8.2); eGFR 83 ML/MIN
[2020-09-15 20:24] LABS: ANISOCYTOSIS 3+; PLATELET ESTIMATE INCREASED; POLYCHROMASIA FEW
[2020-09-15 20:25] LABS: LARGE PLATELETS FEW
[2020-09-15] MEDS ORDERED: ENOX100S3 SQ (20:26)
[2020-09-15] MEDS ORDERED: GABA800T11 PO (20:29)
[2020-09-15] MEDS ORDERED: OXYC20TA55 PO (20:32)
[2020-09-15] MEDS ORDERED: IRON-32 PO (20:33)
[2020-09-15] MEDS ORDERED: PREG100C PO (20:35)
[2020-09-15] MEDS ORDERED: mag hydrox/Alum hydrox/simeth 30ml oral suspension PO PRN (21:45)
[2020-09-15] MEDS ORDERED: ondansetron/PF 4mg/2ml inj IV PRN (21:45)
[2020-09-15] MEDS ORDERED: potassium Cl 40MEQ/1/2NS 520ml 520 ML IV PRN ×2 (21:45)
[2020-09-15] MEDS ORDERED: potassium Cl 20 mEq SR tablet PO PRN ×2 (21:45)
[2020-09-15] MEDS ORDERED: acetaminophen 325mg tablet PO PRN (21:45)
[2020-09-15] MEDS ORDERED: magnesium hydroxide 30ml (MOM) UD suspension PO PRN (21:45)
[2020-09-15] MEDS ORDERED: albuterol 2.5 MG/3 ML nebule NEB PRN (22:00)
[2020-09-15] MEDS ORDERED: tPA-cathflo 2 MG/2 ml IV flush IVF ONE (22:35)
[2020-09-15] MEDS ORDERED: pregabalin 75mg capsule PO ONE (23:10)
[2020-09-15] MEDS ORDERED: OXYCODONE 80 MG PO ONE (23:10)
[2020-09-15] MEDS ORDERED: pregabalin 25mg capsule PO ONE (23:20)
[2020-09-15] MEDS ORDERED: oxyCODONE SR 10mg (sust. release) tab PO ONE (23:20)
--- NOTE | 2020-09-15 23:22 | NUR ---
Pt has extended line in RUE. X-ray taken to confirm placement. X-ray shows a kink in catheter near insertion point that otherwise looks to be in place for use. Dressing removed, line straighted and withdrawn 1 cm to reduce obstruction. Dressing replaced using sterile technique and flushed. FLow was somewhat improved but still obstructed. Cath-flow ordered from pharmacy and administered per product instructions. 1 ml inserted into each port. Medication to stay in line for 30 minutes before attempting to flush. Pt transfered to ortho/neuro. Recieving nurse notified of interventions for IV line.
--- NOTE | 2020-09-15 23:35 | NUR ---
Verbal order from Dr. Palmer to use extended line if able.
[2020-09-15] MEDS: gabapentin 400mg capsule PO SCH (23:36)
[2020-09-15 23:49] VITALS: BP 104/61
[2020-09-16] MEDS: CefTRIAXone/D5W-Rocephin 1gm 50 ML IV SCH ×2 (00:02→21:13)
[2020-09-16] MEDS ORDERED: vancomycin/NS 1 GM ADD-VANTAGE 250 ML IV ONE (01:40)
[2020-09-16] MEDS: albuterol 2.5 MG/3 ML nebule NEB SCH ×4 (02:35→20:39)
[2020-09-16 06:00] VITALS: BP 97/61
[2020-09-16 06:14] LABS: BASOPHILS % (AUTO) 0.5 % (0-1); EOSINOPHILS # (AUTO) 0.2 X10'3 (0-0.9); EOSINOPHILS % (AUTO) 2.7 % (0-6); HEMATOCRIT 29.5 % (42.0-52.0); HEMOGLOBIN 9.5 g/dl (14.0-17.9); LYMPHOCYTES # (AUTO) 1.6 X10'3 (1.1-4.8); MEAN CORPUSCULAR HEMOGLOBIN 26.5 PG (27.0-31.0); MEAN CORPUSCULAR HGB CONC 32.2 g/dL (33.0-36.5); MEAN CORPUSCULAR VOLUME 82.2 FL (78-98); MEAN PLATELET VOLUME 6.7 FL (7.4-10.4); MONOCYTES # (AUTO) 0.6 X10'3 (0-0.9); MONOCYTES % (AUTO) 11.4 % (2-12); NEUTROPHILS # (AUTO) 3.2 X10'3 (1.8-7.7); NEUTROPHILS % (AUTO) 56.4 % (42-75); PLATELET COUNT 571 X10'3 (140-440); RED BLOOD COUNT 3.59 X10'6 (4.70-6.10); RED CELL DISTRIBUTION WIDTH 21.5 % (11.5-14.5); WHITE BLOOD COUNT 5.6 X10'3 (4.5-11.0)
[2020-09-16 06:24] LABS: TOTAL CARBON DIOXIDE 22.3 MMOL/L (24-32)
--- NOTE | 2020-09-16 06:34 | NUR ---
Report given to Lisa SEGAL.
[2020-09-16 06:48] LABS: ALANINE AMINOTRANSFERASE 49 U/L (12-78); ALBUMIN 1.9 G/DL (3.4-5.0); ALBUMIN/GLOBULIN RATIO 0.3 (1.1-1.5); ALKALINE PHOSPHATASE 305 IU/L (46-116); ANION GAP 9 (8-16); ASPARTATE AMINO TRANSFERASE 30 U/L (10-37); BILIRUBIN,TOTAL 0.3 MG/DL (0.1-1.0); BLOOD UREA NITROGEN 36 MG/DL (7-18); BUN/CREATININE RATIO 37.9 (5.4-32.0); CHLORIDE 103 MMOL/L (99-107); CREATININE 0.95 MG/DL (0.60-1.10); POTASSIUM 4.7 MMOL/L (3.5-5.1); SODIUM 134 MMOL/L (135-145); TOTAL PROTEIN 8.7 G/DL (6.4-8.2); eGFR > 90 ML/MIN
[2020-09-16 07:09] LABS: GLUCOSE 96 MG/DL (70-104)
[2020-09-16 07:53] VITALS: BP 92/58
[2020-09-16] MEDS: carVEDilol 3.125mg tablet PO SCH (07:53)
[2020-09-16] MEDS: spironolactone 25 MG tablet PO SCH (08:00)
[2020-09-16] MEDS: K and/or MAG REPLACEMENT MC SCH ×2 (08:00→20:00)
[2020-09-16] MEDS: lisinopril 2.5mg tablet PO SCH (08:00)
[2020-09-16] MEDS: enoxaparin 40mg/0.4ml syringe SQ SCH (08:00)
[2020-09-16] MEDS ORDERED: [UNRECOGNIZED DRUG - OTHER] PO SCH (08:00)
[2020-09-16] MEDS: furosemide 20MG tablet PO SCH (08:00)
[2020-09-16] MEDS: budesonide 0.5mg/2ml UD nebule IH SCH ×2 (08:02→20:39)
[2020-09-16] MEDS: docusate sod 100mg capsule PO SCH ×2 (08:18→19:59)
[2020-09-16 08:19] LABS: PLATELET ESTIMATE INCREASED
[2020-09-16 08:20] LABS: ANISOCYTOSIS 3+; LARGE PLATELETS FEW
[2020-09-16] MEDS: aspirin 81mg tablet.DR PO SCH (08:20)
[2020-09-16 08:21] LABS: POLYCHROMASIA 1+
[2020-09-16] MEDS: gabapentin 400mg capsule PO SCH ×3 (08:21→23:14)
[2020-09-16 08:22] LABS: ELLIPTOCYTES FEW; ROULEAUX 1+
[2020-09-16] MEDS: iron polysaccharide complex 150mg capsule PO SCH (08:22)
[2020-09-16 08:23] LABS: HYPOCHROMASIA 1+
[2020-09-16] MEDS: oxyCODONE SR 10mg (sust. release) tab PO SCH ×2 (08:23→20:00)
[2020-09-16] MEDS: prednisone 10mg tablet PO SCH (08:25)
[2020-09-16] MEDS: pregabalin 25mg capsule PO SCH ×2 (08:26→20:00)
--- NOTE | 2020-09-16 10:08 | NUR ---
ACTING A MILIEU TECHNICIAN I REVIEWED FLEET SALESPERSON CHARTING
[2020-09-16] MEDS: HYDROmorphone inj. 0.5 MG/0.5 ML DISP.SYRIN IV PRN ×3 (12:11→20:56)
--- NOTE | 2020-09-16 14:49 | NUR ---
II 09/22 +Wnd Nutrition Consult: Pt admit dx non-healing left BKA wound per MD note. RD marketing pr intern visited pt at bedside with verbal and written high protein education with RD contact information provided. Pt stated that he has lost wt in the last few months though no specifics provided. Pt PO 100% first meal on MM5/thin diet w/o HEEL ATTACHER WOOD BSS this admit;requested being put on a regular textured diet. D/w RN regarding diet liberalization to regular diet if MD agreeable as pt reports no trouble chewing and swallowing; prior admit on regular texture and tolerating well. Pt stated that he was very hungry after lunch. Recommend sending double protein and yogurt TIDWM; d/w dietary. Pt is agreeable to Jon smoothie BIDBD for wound healing, MD notified. No BM yet this admit, will continue to monitor. Recommend 1) Continue with regular diet 2) Jon smoothie BIDBD pending MD approval 3) Routine bowel care 4) Scaled wt this admit Addendum: 09/16/20 at [address] Amended: Links added. Addendum: 09/16/20 at [address] RAHEL esparza/ internet marketing specialist note.
[2020-09-16] MEDS: vancomycin/NS 1 GM ADD-VANTAGE 250 ML IV SCH (15:02)
[2020-09-16 18:18] VITALS: BP 102/60
--- NOTE | 2020-09-16 18:30 | NUR ---
Patient in room ORTHO 4024. I have received report from artemio Gonzalez and had the opportunity to ask questions and assume patient care.
--- NOTE | 2020-09-16 18:39 | NUR ---
Report to Irene SEGAL
[2020-09-16] MEDS: lactobacillus rhamnosus 10,000 MMU CELLS/CAPSULE PO SCH (20:00)
[2020-09-16] MEDS: ROPINIRole 1mg tablet PO SCH (20:55)
[2020-09-16 22:00] VITALS: BP 103/55
[2020-09-17] VITALS (18 sets, daily range): BP systolic 82–129; BP diastolic 55–79
[2020-09-17] MEDS: HYDROmorphone inj. 0.5 MG/0.5 ML DISP.SYRIN IV PRN ×4 (00:57→15:19)
[2020-09-17] MEDS: vancomycin/NS 1 GM ADD-VANTAGE 250 ML IV SCH (01:06)
[2020-09-17] MEDS: albuterol 2.5 MG/3 ML nebule NEB SCH ×3 (02:34→20:08)
[2020-09-17 06:00] LABS: BASOPHILS % (AUTO) 0.4 % (0-1); EOSINOPHILS # (AUTO) 0.2 X10'3 (0-0.9); EOSINOPHILS % (AUTO) 3.3 % (0-6); HEMATOCRIT 27.7 % (42.0-52.0); HEMOGLOBIN 9.1 g/dl (14.0-17.9); LYMPHOCYTES # (AUTO) 1.6 X10'3 (1.1-4.8); LYMPHOCYTES % (AUTO) 28.3 % (21-51); MEAN CORPUSCULAR HEMOGLOBIN 26.9 PG (27.0-31.0); MEAN CORPUSCULAR VOLUME 81.6 FL (78-98); MEAN PLATELET VOLUME 6.6 FL (7.4-10.4); MONOCYTES # (AUTO) 0.8 X10'3 (0-0.9); MONOCYTES % (AUTO) 14.7 % (2-12); NEUTROPHILS % (AUTO) 53.3 % (42-75); PLATELET COUNT 498 X10'3 (140-440); RED CELL DISTRIBUTION WIDTH 21.6 % (11.5-14.5); WHITE BLOOD COUNT 5.7 X10'3 (4.5-11.0)
[2020-09-17 06:04] LABS: ALANINE AMINOTRANSFERASE 43 U/L (12-78); ALBUMIN 1.7 G/DL (3.4-5.0); ALBUMIN/GLOBULIN RATIO 0.3 (1.1-1.5); ALKALINE PHOSPHATASE 249 IU/L (46-116); ANION GAP 6 (8-16); ASPARTATE AMINO TRANSFERASE 31 U/L (10-37); BILIRUBIN,TOTAL 0.3 MG/DL (0.1-1.0); BLOOD UREA NITROGEN 34 MG/DL (7-18); BUN/CREATININE RATIO 32.7 (5.4-32.0); CALCIUM 9.6 MG/DL (8.5-10.1); CHLORIDE 102 MMOL/L (99-107); CREATININE 1.04 MG/DL (0.60-1.10); GLUCOSE 102 MG/DL (70-104); POTASSIUM 4.4 MMOL/L (3.5-5.1); SODIUM 133 MMOL/L (135-145); TOTAL CARBON DIOXIDE 24.9 MMOL/L (24-32); TOTAL PROTEIN 7.9 G/DL (6.4-8.2); eGFR 87 ML/MIN
--- NOTE | 2020-09-17 06:27 | NUR ---
Problems reprioritized. Patient report given, questions answered & plan of care reviewed with LUZMA WALLACE.
--- NOTE | 2020-09-17 06:49 | NUR ---
Patient in room ORTHO 4024. I have received report from Victorina ulloa and had the opportunity to ask questions and assume patient care.
[2020-09-17] MEDS: oxyCODONE SR 10mg (sust. release) tab PO SCH ×2 (07:18→21:07)
[2020-09-17] MEDS: lactobacillus rhamnosus 10,000 MMU CELLS/CAPSULE PO SCH ×2 (07:18→21:07)
[2020-09-17] MEDS: aspirin 81mg tablet.DR PO SCH (07:19)
[2020-09-17] MEDS: pregabalin 25mg capsule PO SCH ×2 (07:19→21:07)
[2020-09-17] MEDS: gabapentin 400mg capsule PO SCH ×3 (07:20→23:05)
[2020-09-17] MEDS: docusate sod 100mg capsule PO SCH ×2 (07:20→21:07)
[2020-09-17] MEDS: iron polysaccharide complex 150mg capsule PO SCH (07:24)
[2020-09-17] MEDS: prednisone 10mg tablet PO SCH (07:25)
[2020-09-17 07:26] LABS: PLATELET ESTIMATE INCREASED
[2020-09-17 07:27] LABS: ANISOCYTOSIS 3+; MICROCYTOSIS 1+
[2020-09-17] MEDS: K and/or MAG REPLACEMENT MC SCH ×2 (07:33→20:00)
[2020-09-17] MEDS: carVEDilol 3.125mg tablet PO SCH (07:34)
[2020-09-17] MEDS: spironolactone 25 MG tablet PO SCH (07:34)
[2020-09-17] MEDS: lisinopril 2.5mg tablet PO SCH (07:34)
[2020-09-17] MEDS: furosemide 20MG tablet PO SCH (07:34)
[2020-09-17] MEDS: enoxaparin 40mg/0.4ml syringe SQ SCH (07:35)
[2020-09-17] MEDS: budesonide 0.5mg/2ml UD nebule IH SCH ×2 (08:18→20:08)
[2020-09-17] MEDS ORDERED: BUPIVAcaine/PF 2.5 mg/ml (0.25%) 30ml vial ONE (10:44)
[2020-09-17] MEDS ORDERED: ringers solution, lacted 1,000 ML IV SCH (11:00)
[2020-09-17] MEDS ORDERED: enalaprilat dihydrate 2.5mg/2ml vial IV PRN (11:00)
[2020-09-17] MEDS ORDERED: ondansetron/PF 4mg/2ml inj IV PRN (11:00)
[2020-09-17] MEDS ORDERED: hydrALAZINE 20mg/ml inj. IV PRN (11:00)
[2020-09-17] MEDS ORDERED: morphine 4 MG/ML inj SYRINge IV PRN (11:00)
[2020-09-17] MEDS ORDERED: morphine 2 MG/ML inj. syringe IV PRN (11:00)
[2020-09-17] MEDS ORDERED: fentaNYL/PF 50MCG/1 ML 2ML syringe IV PRN ×2 (11:00)
[2020-09-17] MEDS ORDERED: albumin (Human) 5% 250ml 250 ML IV ONE (11:02)
[2020-09-17] MEDS ORDERED: midazolam 1 mg/ML 2ml injection ONE (11:13)
[2020-09-17] MEDS ORDERED: morphine 10mg/ml inj. ONE (11:14)
[2020-09-17] MEDS ORDERED: phenylephrine 10mg/ml inj. ONE (12:05)
--- NOTE | 2020-09-17 12:37 | NUR ---
Received from OR via , accompanied by Anesthesiologist DR SALGADO and report given by Anesthesiolgist. AWAKE AND KAT PAIN. VITALS STABLE. DRESSING DI. SNESATION AT BILAT HIPS.
[2020-09-17] MEDS ORDERED: VANCOMYCIN LEVEL IV ONE (13:30)
--- NOTE | 2020-09-17 13:37 | NUR ---
Report called to receiving nurse. Transferred via BED Belongings . Special Issues communicated to receiving nurse. AWAKE AND ORIENTED. VITALS STABLE. DRESSING DI. KAT PAIN. TO ORTHO RM 4024A AT THIS TIME.
[2020-09-17] MEDS ORDERED: HYDROmorphone 1 mg/ml syringe IV ONE (16:35)
[2020-09-17] MEDS: VANCOmycin 1250MG/NS 250ml Bag 250 ML IV SCH (16:59)
--- NOTE | 2020-09-17 18:41 | NUR ---
Problems reprioritized. Patient report given, questions answered & plan of care reviewed with Peggy SEGAL.
[2020-09-17] MEDS: HYDROmorphone 1 mg/ml syringe IV PRN ×3 (19:05→23:11)
[2020-09-17] MEDS: ROPINIRole 1mg tablet PO SCH (21:07)
[2020-09-17] MEDS: CefTRIAXone/D5W-Rocephin 1gm 50 ML IV SCH (21:08)
--- NOTE | 2020-09-17 23:05 | NUR ---
TALKED TO PHARMACY KEMAR REGARDING NEURONTIN. PT ALREADY TOOK LYRICA TONIGHT AND ITS NOT SAFE TO HAVE BOTH LYRICA AND NEURONTIN. ILL NON ADMIN NEURONTIN FOR NOW AND CLARIFY WITH MD IN THE MORNING.
[2020-09-18 02:00] VITALS: BP 102/66
[2020-09-18] MEDS: VANCOmycin 1250MG/NS 250ml Bag 250 ML IV SCH (03:10)
[2020-09-18] MEDS: albuterol 2.5 MG/3 ML nebule NEB SCH ×3 (03:17→13:22)
[2020-09-18] MEDS: HYDROmorphone 1 mg/ml syringe IV PRN ×3 (03:17→07:53)
[2020-09-18 05:53] LABS: BASOPHILS % (AUTO) 0.2 % (0-1); EOSINOPHILS # (AUTO) 0.1 X10'3 (0-0.9); EOSINOPHILS % (AUTO) 1.2 % (0-6); HEMATOCRIT 28.4 % (42.0-52.0); HEMOGLOBIN 9.1 g/dl (14.0-17.9); LYMPHOCYTES # (AUTO) 1.7 X10'3 (1.1-4.8); LYMPHOCYTES % (AUTO) 25.7 % (21-51); MEAN CORPUSCULAR HEMOGLOBIN 26.4 PG (27.0-31.0); MEAN CORPUSCULAR VOLUME 82.3 FL (78-98); MEAN PLATELET VOLUME 6.7 FL (7.4-10.4); MONOCYTES # (AUTO) 0.8 X10'3 (0-0.9); MONOCYTES % (AUTO) 11.3 % (2-12); NEUTROPHILS # (AUTO) 4.1 X10'3 (1.8-7.7); NEUTROPHILS % (AUTO) 61.6 % (42-75); PLATELET COUNT 507 X10'3 (140-440); RED BLOOD COUNT 3.45 X10'6 (4.70-6.10); RED CELL DISTRIBUTION WIDTH 21.5 % (11.5-14.5); WHITE BLOOD COUNT 6.7 X10'3 (4.5-11.0)
[2020-09-18 06:00] VITALS: BP 113/66
[2020-09-18 06:15] LABS: ALANINE AMINOTRANSFERASE 38 U/L (12-78); ALBUMIN 1.9 G/DL (3.4-5.0); ALBUMIN/GLOBULIN RATIO 0.3 (1.1-1.5); ALKALINE PHOSPHATASE 217 IU/L (46-116); ANION GAP 6 (8-16); ASPARTATE AMINO TRANSFERASE 31 U/L (10-37); BILIRUBIN,TOTAL 0.4 MG/DL (0.1-1.0); BLOOD UREA NITROGEN 27 MG/DL (7-18); BUN/CREATININE RATIO 27.6 (5.4-32.0); CALCIUM 9.6 MG/DL (8.5-10.1); CHLORIDE 102 MMOL/L (99-107); CREATININE 0.98 MG/DL (0.60-1.10); GLUCOSE 137 MG/DL (70-104); POTASSIUM 4.3 MMOL/L (3.5-5.1); SODIUM 132 MMOL/L (135-145); TOTAL PROTEIN 8.2 G/DL (6.4-8.2); eGFR > 90 ML/MIN
--- NOTE | 2020-09-18 06:32 | NUR ---
Problems reprioritized. Patient report given, questions answered & plan of care reviewed with LUZMA OLSON.
[2020-09-18] MEDS: K and/or MAG REPLACEMENT MC SCH (08:00)
[2020-09-18] MEDS: spironolactone 25 MG tablet PO SCH (08:42)
[2020-09-18] MEDS: gabapentin 400mg capsule PO SCH ×2 (08:43→15:53)
[2020-09-18] MEDS: aspirin 81mg tablet.DR PO SCH (08:43)
[2020-09-18] MEDS: iron polysaccharide complex 150mg capsule PO SCH (08:43)
[2020-09-18] MEDS: pregabalin 25mg capsule PO SCH (08:43)
[2020-09-18] MEDS: lactobacillus rhamnosus 10,000 MMU CELLS/CAPSULE PO SCH (08:43)
[2020-09-18] MEDS: docusate sod 100mg capsule PO SCH (08:43)
[2020-09-18] MEDS: carVEDilol 3.125mg tablet PO SCH (08:43)
[2020-09-18] MEDS: furosemide 20MG tablet PO SCH (08:43)
[2020-09-18] MEDS: lisinopril 2.5mg tablet PO SCH (08:44)
[2020-09-18] MEDS: prednisone 10mg tablet PO SCH (08:44)
[2020-09-18] MEDS: oxyCODONE SR 10mg (sust. release) tab PO SCH (08:44)
[2020-09-18] MEDS: enoxaparin 40mg/0.4ml syringe SQ SCH (08:45)
[2020-09-18] MEDS: budesonide 0.5mg/2ml UD nebule IH SCH (08:51)
[2020-09-18 08:58] LABS: ANISOCYTOSIS 3+; PLATELET ESTIMATE INCREASED
[2020-09-18 10:00] VITALS: BP 114/70
[2020-09-18] MEDS ORDERED: oxyCODONE IR 5mg (immed. release) tablet PO PRN (10:05)
[2020-09-18] MEDS ORDERED: ketorolac tromethamine 15mg/ml inj. IV PRN (10:05)
[2020-09-18] MEDS ORDERED: HYDROmorphone 1 mg/ml syringe IV ONE (12:25)
[2020-09-18] MEDS ORDERED: oxyCODONE/APAP 10/325mg tablet PO PRN (12:25)
--- NOTE | 2020-09-18 16:33 | NUR ---
called report to [facility]
[2020-09-19] MEDS ORDERED: VANCOMYCIN LEVEL IV ONE (03:30)
== END 2020-09-18 16:15 | DRG 792 ==
LOC: ER 17:56 → ED HOLD 21:45 → ORTHO 4S 23:31
PROVIDERS: ADMIT Internal Medicine; ATTEND Family Medicine
PROC: 0Y6D0Z3 Detachment at Left Upper Leg, Low, Open Approach (ICD-10-PCS; principal; 2020-09-17 11:30)
DX: T81.31XA Disruption of external operation (surgical) wound, not elsewhere classified, initial encounter (principal); E78.00 Pure hypercholesterolemia, unspecified; I11.0 Hypertensive heart disease with heart failure; I25.10 Atherosclerotic heart disease of native coronary artery without angina pectoris; I42.9 Cardiomyopathy, unspecified; I50.9 Heart failure, unspecified; J44.9 Chronic obstructive pulmonary disease, unspecified; D64.9 Anemia, unspecified; Y83.5 Amputation of limb(s) as the cause of abnormal reaction of the patient, or of later complication, without mention of misadventure at the time of the procedure; E87.1 Hypo-osmolality and hyponatremia; Z20.822 Contact with and (suspected) exposure to COVID-19; Z82.49 Family history of ischemic heart disease and other diseases of the circulatory system; I25.2 Old myocardial infarction; Z87.891 Personal history of nicotine dependence; Z89.512 Acquired absence of left leg below knee; Z88.8 Allergy status to other drugs, medicaments and biological substances
CPT/HCPCS: 36415; 71045; 80053; 80202; 82948; 83880; 85008; 85025; 85610; 87081; 87635; 93005; 93308; 94640; 94760; 99285; A6223; A6446; A6449; A7000; G0378; J0696; J1170; J1650; J1885; J2250; J2270; J2370; J2997; J3370; J3490; J7512; J7626; P9045

== ENCOUNTER 2020-10-27 12:52 | Outpatient (CLI) | payer MEDICAID ==
[~2020-10-27 12:52] MED LIST changes: +ENOX100S3 SQ; +GABA800T11 PO; +IRON-32 PO; +OXYC20TA55 PO; +PREG100C PO
== END 2020-10-27 23:59 | disposition home or self-care (01) ==
LOC: 64 CT 12:52
PROVIDERS: ATTEND Internal Medicine
DX: T81.49XA Infection following a procedure, other surgical site, initial encounter (principal); E11.69 Type 2 diabetes mellitus with other specified complication; M86.8X9 Other osteomyelitis, unspecified sites; N40.0 Benign prostatic hyperplasia without lower urinary tract symptoms; X58.XXXA Exposure to other specified factors, initial encounter; Y93.89 Activity, other specified; Y92.89 Other specified places as the place of occurrence of the external cause; Y99.8 Other external cause status
CPT/HCPCS: 73700

== ENCOUNTER 2020-12-15 13:16 | Outpatient (CLI) | payer MEDICAID ==
[~2020-12-15 13:16] MED LIST changes: -VANC1VIA21 IV; +VANC1VIA35 IV
== END 2020-12-15 23:59 | disposition home or self-care (01) ==
LOC: CARD DIAG 13:16
PROVIDERS: ATTEND Internal Medicine
DX: I08.0 Rheumatic disorders of both mitral and aortic valves (principal); I50.9 Heart failure, unspecified
CPT/HCPCS: 93306

== ENCOUNTER 2021-01-04 14:40 | Emergency (ER) | payer MEDICAID ==
[~2021-01-04] VITALS: Ht 172.7 cm; Wt 67.3 kg
[2021-01-04] MEDS ORDERED: normal saline 1000ml 1,000 ML IV ONE (15:00)
[2021-01-04 15:25] LABS: BASOPHILS % (AUTO) 0.3 % (0-1); EOSINOPHILS # (AUTO) 0.1 X10'3 (0-0.9); EOSINOPHILS % (AUTO) 1.6 % (0-6); HEMATOCRIT 39.9 % (42.0-52.0); HEMOGLOBIN 13.4 g/dl (14.0-17.9); LYMPHOCYTES # (AUTO) 1.3 X10'3 (1.1-4.8); LYMPHOCYTES % (AUTO) 24.6 % (21-51); MEAN CORPUSCULAR HEMOGLOBIN 27.4 PG (27.0-31.0); MEAN CORPUSCULAR HGB CONC 33.5 g/dL (33.0-36.5); MEAN CORPUSCULAR VOLUME 81.9 FL (78-98); MEAN PLATELET VOLUME 7.4 FL (7.4-10.4); MONOCYTES # (AUTO) 0.7 X10'3 (0-0.9); MONOCYTES % (AUTO) 12.6 % (2-12); NEUTROPHILS # (AUTO) 3.2 X10'3 (1.8-7.7); NEUTROPHILS % (AUTO) 60.9 % (42-75); PLATELET COUNT 312 X10'3 (140-440); RED BLOOD COUNT 4.87 X10'6 (4.70-6.10); RED CELL DISTRIBUTION WIDTH 18.4 % (11.5-14.5); WHITE BLOOD COUNT 5.3 X10'3 (4.5-11.0)
[2021-01-04] MEDS ORDERED: ondansetron/PF 4mg/2ml inj IV ONE (15:30)
[2021-01-04] MEDS ORDERED: HYDROcodone/acetaminophen 10/325mg tab PO ONE (15:30)
[2021-01-04] MEDS ORDERED: acetaminophen 325mg tablet PO ONE (15:30)
[2021-01-04] MEDS ORDERED: ketorolac tromethamine 15mg/ml inj. IV ONE (15:30)
[2021-01-04] MEDS ORDERED: gabapentin 400mg capsule PO ONE (15:30)
[2021-01-04] MEDS ORDERED: gabapentin 300mg capsule PO ONE (15:40)
[2021-01-04 15:42] LABS: ALANINE AMINOTRANSFERASE 17 U/L (12-78); ALBUMIN 2.8 G/DL (3.4-5.0); ALBUMIN/GLOBULIN RATIO 0.4 (1.1-1.5); ALKALINE PHOSPHATASE 64 IU/L (46-116); ANION GAP 10 (8-16); ASPARTATE AMINO TRANSFERASE 19 U/L (10-37); BILIRUBIN,TOTAL 0.3 MG/DL (0.1-1.0); BLOOD UREA NITROGEN 23 MG/DL (7-18); BUN/CREATININE RATIO 19.2 (5.4-32.0); CALCIUM 10.4 MG/DL (8.5-10.1); CHLORIDE 106 MMOL/L (99-107); GLUCOSE 109 MG/DL (70-104); POTASSIUM 3.8 MMOL/L (3.5-5.1); SODIUM 137 MMOL/L (135-145); TOTAL CARBON DIOXIDE 20.7 MMOL/L (24-32); TOTAL PROTEIN 9.1 G/DL (6.4-8.2); eGFR 74 ML/MIN
[2021-01-04 15:45] LABS: CREATINE KINASE 59 U/L (39-308); MAGNESIUM 1.7 MG/DL (1.5-2.4); TROPONIN I < 0.04 NG/ML (0.0-0.05)
[2021-01-04] MEDS ORDERED: spironolactone 25 MG tablet PO ONE (16:25)
[2021-01-04] MEDS ORDERED: furosemide 10 MG/1 ML 10ml inj IV ONE (16:25)
[2021-01-04] MEDS ORDERED: pregabalin 75mg capsule PO ONE (16:25)
[2021-01-04] MEDS ORDERED: ROPINIRole 1mg tablet PO ONE (16:25)
[2021-01-04] MEDS ORDERED: carVEDilol 3.125mg tablet PO ONE (16:25)
[2021-01-04 17:07] VITALS: BP 113/77
== END 2021-01-04 17:09 | disposition home or self-care (01) ==
LOC: ER 14:42
DX: R53.1 Weakness (principal); I25.10 Atherosclerotic heart disease of native coronary artery without angina pectoris; I11.0 Hypertensive heart disease with heart failure; I50.9 Heart failure, unspecified; E78.00 Pure hypercholesterolemia, unspecified; I25.2 Old myocardial infarction; J44.9 Chronic obstructive pulmonary disease, unspecified; M19.90 Unspecified osteoarthritis, unspecified site; M10.9 Gout, unspecified; F12.90 Cannabis use, unspecified, uncomplicated; F15.90 Other stimulant use, unspecified, uncomplicated; Z76.0 Encounter for issue of repeat prescription; Z86.69 Personal history of other diseases of the nervous system and sense organs; Z87.01 Personal history of pneumonia (recurrent); Z98.890 Other specified postprocedural states; Z72.89 Other problems related to lifestyle; Z56.0 Unemployment, unspecified; Z59.0 Homelessness; Z79.82 Long term (current) use of aspirin; Z79.2 Long term (current) use of antibiotics; Z79.899 Other long term (current) drug therapy
CPT/HCPCS: 36415; 71045; 80053; 82550; 83605; 83735; 83880; 84484; 85025; 96374; 96375; 99284; J1885; J1940; J2405; J7030

== ENCOUNTER 2021-01-07 22:02 | Emergency (ER) | payer MEDICAID ==
[~2021-01-07] VITALS: Ht 188 cm; Wt 72.7 kg
[2021-01-07 22:14] VITALS: BP 112/78
--- NOTE | 2021-01-08 08:10 | NUR ---
Dr. Sanchez spoke with patients daughter, patient cb.
== END 2021-01-08 08:11 | disposition left against medical advice (07) ==
LOC: ER 22:03
DX: R06.02 Shortness of breath (principal); R53.81 Other malaise; I25.10 Atherosclerotic heart disease of native coronary artery without angina pectoris; I11.0 Hypertensive heart disease with heart failure; I50.9 Heart failure, unspecified; E78.00 Pure hypercholesterolemia, unspecified; I25.2 Old myocardial infarction; J44.9 Chronic obstructive pulmonary disease, unspecified; M19.90 Unspecified osteoarthritis, unspecified site; M10.9 Gout, unspecified; F12.90 Cannabis use, unspecified, uncomplicated; F15.90 Other stimulant use, unspecified, uncomplicated; Z76.0 Encounter for issue of repeat prescription; Z86.69 Personal history of other diseases of the nervous system and sense organs; Z87.01 Personal history of pneumonia (recurrent); Z98.890 Other specified postprocedural states; Z72.89 Other problems related to lifestyle; Z56.0 Unemployment, unspecified; Z59.0 Homelessness; Z79.82 Long term (current) use of aspirin; Z79.2 Long term (current) use of antibiotics; Z79.899 Other long term (current) drug therapy
CPT/HCPCS: 71045; 93005; 99283

== ENCOUNTER 2022-08-05 05:17 | Emergency (ER) | payer MEDICARE, MEDICAID ==
[~2022-08-05] VITALS: Ht 188 cm; Wt 75.0 kg
[~2022-08-05 05:17] MED LIST changes: +ALB0.5UD NEB; -ALBU8.5H8 IH; +ALLO100T PO; -ASPI-1475 PO; -BUDE10.26 INH; -CARV3.122 PO; +CARV3.123 PO; -CEFT1VIA14 IV; -COLC1TAB2 PO; -DOCU-148 PO; +DOCU100T2 PO; -ENOX100S3 SQ; -FOND2.5D3 SUBCUT; +GABA600T13 PO; -GABA800T11 PO; -HYDR-3973 PO; -HYDR2TAB28 IV; -IRON-32 PO; -LACT1CAP65 PO; -LISI2.5T2 PO; -MELO-102 PO; -META-25 PO; -ONDA4TAB6 IV; +OXYC1TAB17 PO; -OXYC20TA55 PO; +PRED10TA PO; -PRED5TAB PO; -PREG100C PO; -SPIR25TA5 PO; -VANC1VIA35 IV
[2022-08-05 05:24] VITALS: BP 148/112
[2022-08-05] MEDS ORDERED: CARV3.12 PO (06:55)
[2022-08-05] MEDS ORDERED: FURO40TA4 PO (06:55)
[2022-08-05] MEDS ORDERED: ALBU18HF2 INH (06:55)
[2022-08-05] MEDS ORDERED: LORA-268 PO (06:55)
[2022-08-05] MEDS ORDERED: GABA300C PO (06:55)
[2022-08-05] MEDS ORDERED: ROPI1TAB6 PO (06:55)
[2022-08-05] MEDS ORDERED: APIX5TAB3 PO (06:55)
[2022-08-05] MEDS ORDERED: ALLO100T PO (06:55)
[2022-08-05] MEDS ORDERED: DOCU-148 PO (06:55)
[2022-08-05] MEDS ORDERED: carVEDilol 3.125mg tablet PO STA (06:57)
[2022-08-05] MEDS ORDERED: LORazepam 0.5 MG tablet PO ONE (07:00)
--- NOTE | 2022-08-05 07:11 | NUR ---
Pt declined coreg stating, "my caregiver needs to get his kids to school. I'll get it from the pharmacy."
== END 2022-08-05 07:13 | disposition home or self-care (01) ==
LOC: ER 05:18
DX: F41.9 Anxiety disorder, unspecified (principal); Z76.0 Encounter for issue of repeat prescription; I11.9 Hypertensive heart disease without heart failure; E78.00 Pure hypercholesterolemia, unspecified; J44.9 Chronic obstructive pulmonary disease, unspecified; F12.10 Cannabis abuse, uncomplicated; F15.10 Other stimulant abuse, uncomplicated; Z59.00 Homelessness unspecified; Z56.0 Unemployment, unspecified; Z79.899 Other long term (current) drug therapy; Z79.1 Long term (current) use of non-steroidal anti-inflammatories (NSAID); Z79.2 Long term (current) use of antibiotics
CPT/HCPCS: 99284

== ENCOUNTER 2022-09-06 09:42 | Emergency (ER) | payer MEDICARE, MEDICAID ==
[~2022-09-06] VITALS: Ht 188 cm; Wt 73.6 kg
[~2022-09-06 09:42] MED LIST changes: +ALBU18HF2 INH; +APIX5TAB3 PO; +ASPI-1397 PO; +ATOR20TA66 PO; +BUDE10.2 INH; +ESCI-8 PO; +HYDR200T84 PO; +LORA-268 PO; +NICO-631 TOP; +OXYC-150 PO; -OXYC1TAB17 PO; +SPIR25TA5 PO
[2022-09-06 09:54] VITALS: BP 133/98
[2022-09-06] MEDS ORDERED: METO-292 PO (16:26)
== END 2022-09-06 16:51 | disposition home or self-care (01) ==
LOC: ER 09:43
DX: R11.2 Nausea with vomiting, unspecified (principal); G89.29 Other chronic pain; I11.0 Hypertensive heart disease with heart failure; I50.9 Heart failure, unspecified; E78.00 Pure hypercholesterolemia, unspecified; J44.9 Chronic obstructive pulmonary disease, unspecified; M19.90 Unspecified osteoarthritis, unspecified site; F12.90 Cannabis use, unspecified, uncomplicated; F15.20 Other stimulant dependence, uncomplicated; Z59.00 Homelessness unspecified; Z56.0 Unemployment, unspecified
CPT/HCPCS: 99283

== ENCOUNTER 2022-09-23 13:45 | Inpatient (IN) | payer MEDICAID, MEDICARE ==
[~2022-09-23] VITALS: Ht 188 cm; Wt 81.8 kg
[~2022-09-23 13:45] MED LIST changes: +METO-292 PO
[2022-09-23 14:07] LABS: BASOPHILS % (AUTO) 0.1 % (0-1); EOSINOPHILS % (AUTO) 0 % (0-6); MEAN CORPUSCULAR HGB CONC 31.1 g/dL (33.0-36.5); MONOCYTES # (AUTO) 0.3 X10'3 (0-0.9)
[2022-09-23 14:09] LABS: HEMATOCRIT 41.5 % (42.0-52.0); HEMOGLOBIN 12.9 g/dl (14.0-17.9); LYMPHOCYTES # (AUTO) 0.7 X10'3 (1.1-4.8); LYMPHOCYTES % (AUTO) 9.9 % (21-51); MEAN CORPUSCULAR HEMOGLOBIN 25.5 PG (27.0-31.0); MEAN CORPUSCULAR VOLUME 82.2 FL (78-98); NEUTROPHILS # (AUTO) 6.1 X10'3 (1.8-7.7); PLATELET COUNT 120 X10'3 (140-440); RED BLOOD COUNT 5.05 X10'6 (4.70-6.10); RED CELL DISTRIBUTION WIDTH 18.8 % (11.5-14.5); WHITE BLOOD COUNT 7.1 X10'3 (4.5-11.0)
[2022-09-23 14:27] LABS: ANISOCYTOSIS 2+; LARGE PLATELETS FEW; NUCLEATED RED BLOOD CELLS 1 /100WBC (0-0); PLATELET ESTIMATE DECREASED; TOTAL CELLS COUNTED 100
[2022-09-23 15:58] LABS: ALANINE AMINOTRANSFERASE 194 U/L (12-78); ALBUMIN 2.4 G/DL (3.4-5.0); ALBUMIN/GLOBULIN RATIO 0.4 (1.1-1.5); ALKALINE PHOSPHATASE 151 IU/L (46-116); ANION GAP 17 (8-16); ASPARTATE AMINO TRANSFERASE 104 U/L (10-37); BILIRUBIN,TOTAL 1.7 MG/DL (0.1-1.0); BLOOD UREA NITROGEN 103 MG/DL (7-18); BUN/CREATININE RATIO 26.1 (10.0-20.0); CALCIUM 9.1 MG/DL (8.5-10.1); CHLORIDE 100 MMOL/L (99-107); CREATININE 3.95 MG/DL (0.60-1.10); GLUCOSE 115 MG/DL (70-104); MAGNESIUM 2.8 MG/DL (1.5-2.4); POTASSIUM 5.4 MMOL/L (3.5-5.1); SODIUM 132 MMOL/L (135-145); TOTAL CARBON DIOXIDE 15.2 MMOL/L (24-32); TOTAL PROTEIN 7.8 G/DL (6.4-8.2); eGFR 19 ML/MIN
[2022-09-23] MEDS ORDERED: dextrose 50%-water 50ml dispensing syringe IV ONE (16:40)
[2022-09-23] MEDS ORDERED: insulin regular, human 10 units/0.1 ml syringe IV ONE (16:40)
[2022-09-23] MEDS ORDERED: sodium polystyrene sulfonate 15gm/60ml oral suspension PO ONE (16:40)
[2022-09-23 17:09] LABS: HEMATOCRIT 35.9 % (42.0-52.0); MEAN CORPUSCULAR VOLUME 80.3 FL (78-98); NEUTROPHILS # (AUTO) 5.8 X10'3 (1.8-7.7); WHITE BLOOD COUNT 6.8 X10'3 (4.5-11.0)
[2022-09-23 17:11] LABS: BASOPHILS % (AUTO) 0.5 % (0-1); EOSINOPHILS % (AUTO) 0 % (0-6); HEMOGLOBIN 11.4 g/dl (14.0-17.9); LYMPHOCYTES # (AUTO) 0.6 X10'3 (1.1-4.8); LYMPHOCYTES % (AUTO) 8.2 % (21-51); MEAN CORPUSCULAR HEMOGLOBIN 25.5 PG (27.0-31.0); MEAN CORPUSCULAR HGB CONC 31.8 g/dL (33.0-36.5); MEAN PLATELET VOLUME 8.4 FL (7.4-10.4); MONOCYTES # (AUTO) 0.4 X10'3 (0-0.9); MONOCYTES % (AUTO) 5.3 % (2-12); PLATELET COUNT 139 X10'3 (140-440); RED BLOOD COUNT 4.47 X10'6 (4.70-6.10); RED CELL DISTRIBUTION WIDTH 18.4 % (11.5-14.5)
[2022-09-23 17:24] LABS: APTT 36 SECONDS (22-32); D-DIMER 1.13 MG/L FEU (0-0.50)
[2022-09-23] MEDS: DOBUTamine-DoBUTrex 500mg/D5W 250 ML IV SCH (18:15)
[2022-09-23] MEDS ORDERED: ondansetron/PF 4mg/2ml inj IV PRN (20:40)
[2022-09-23] MEDS ORDERED: acetaminophen 325mg tablet PO PRN (20:40)
[2022-09-23] MEDS ORDERED: sodium bicarbonate (8.4%) inj. 100 MEQ in dextrose 5%-water 1,000 ML IV SCH (20:45)
[2022-09-23] MEDS: morphine 2 MG/ML inj. syringe IV PRN (20:56)
[2022-09-24] VITALS (7 sets, daily range): BP systolic 105–126; BP diastolic 77–94
[2022-09-24] MEDS: morphine 2 MG/ML inj. syringe IV PRN (02:33)
[2022-09-24 03:08] LABS: BASOPHILS % (AUTO) 0 % (0-1); EOSINOPHILS % (AUTO) 0 % (0-6); HEMATOCRIT 32.7 % (42.0-52.0); HEMOGLOBIN 10.5 g/dl (14.0-17.9); LYMPHOCYTES # (AUTO) 0.2 X10'3 (1.1-4.8); LYMPHOCYTES % (AUTO) 2.6 % (21-51); MEAN CORPUSCULAR HEMOGLOBIN 25.5 PG (27.0-31.0); MEAN CORPUSCULAR HGB CONC 32.1 g/dL (33.0-36.5); MEAN CORPUSCULAR VOLUME 79.4 FL (78-98); MEAN PLATELET VOLUME 8.2 FL (7.4-10.4); MONOCYTES # (AUTO) 0.5 X10'3 (0-0.9); MONOCYTES % (AUTO) 5.1 % (2-12); NEUTROPHILS # (AUTO) 8.5 X10'3 (1.8-7.7); NEUTROPHILS % (AUTO) 92.3 % (42-75); PLATELET COUNT 111 X10'3 (140-440); RED BLOOD COUNT 4.12 X10'6 (4.70-6.10); RED CELL DISTRIBUTION WIDTH 18.3 % (11.5-14.5); WHITE BLOOD COUNT 9.3 X10'3 (4.5-11.0)
[2022-09-24 03:15] LABS: ALANINE AMINOTRANSFERASE 138 U/L (12-78); ALBUMIN 2.2 G/DL (3.4-5.0); ALBUMIN/GLOBULIN RATIO 0.5 (1.1-1.5); ALKALINE PHOSPHATASE 120 IU/L (46-116); ANION GAP 10 (8-16); ASPARTATE AMINO TRANSFERASE 68 U/L (10-37); BILIRUBIN,TOTAL 1.7 MG/DL (0.1-1.0); BLOOD UREA NITROGEN 95 MG/DL (7-18); BUN/CREATININE RATIO 25.8 (10.0-20.0); CALCIUM 9.1 MG/DL (8.5-10.1); CHLORIDE 103 MMOL/L (99-107); CREATININE 3.68 MG/DL (0.60-1.10); POTASSIUM 3.1 MMOL/L (3.5-5.1); SODIUM 140 MMOL/L (135-145); TOTAL CARBON DIOXIDE 26.8 MMOL/L (24-32); TOTAL PROTEIN 6.5 G/DL (6.4-8.2); eGFR 20 ML/MIN
[2022-09-24 03:23] LABS: GLUCOSE 96 MG/DL (70-104)
--- NOTE | 2022-09-24 05:34 | NUR ---
NOTIFIED DR KUNZ OF PT CARDIAC ECTOPY DISPITE DOBUTAMINE INFUSION. X 3 RUNS OF V-TACH, MULTIFOCAL PVC'S, COUPLETS, TRIPLETS, BIGEMINY, TRIGEMINY. PT SCHEDULE TO START DIALYSIS THIS AM. NO FURTHER ORDERS
[2022-09-24] MEDS ORDERED: albuterol 2.5 MG/3 ML nebule NEB PRN (06:05)
[2022-09-24] MEDS ORDERED: non-formulary drug (Albuterol Sulfate (Ventolin Hfa) 2 PUFFS) INH SCH (06:05)
--- NOTE | 2022-09-24 06:17 | NUR ---
DR KUNZ DISCUSSED RISKS VS BENEFITS OF CENTRAL LINE FOR DOBUTAMINE INFUSION. SINCE PT HAS A LONG HX OF DRUG ABUSE WITH POOR ACSESS OPTIONS. DOBUTAMINE INFUSION THROUGH PERIPHERAL LINE IS ALRIGHT. PT SCHEDULED FOR DIALYSIS CARE TODAY
--- NOTE | 2022-09-24 07:20 | NUR ---
ASSSUMED PT CARE. 2 PIV SITES PATENT, NO S/S OF INFILTRATE. PT COMPLAINING OF RECTAL PAIN. PT PROVIDED WITH LUC CARE, BARRIER CREAM APPLIED, SOME EXCORIATION NOTED. PULSE OX MOVED TO EAR PROBE, DIFFICULT TO GET AN ACCURATE SPO2 ON PT. PT IS ON 4 LTRS O2 NC.
[2022-09-24] MEDS: furosemide 40mg tablet PO SCH (08:00)
[2022-09-24] MEDS ORDERED: docusate sod 100mg capsule PO SCH (08:00)
[2022-09-24] MEDS: ESCITALOPRAM OXALATE 5 MG TABLET PO SCH (08:00)
[2022-09-24] MEDS: docusate sod 100mg capsule PO SCH ×2 (08:00→20:59)
[2022-09-24] MEDS: carVEDilol 3.125mg tablet PO SCH ×2 (08:00→20:59)
[2022-09-24] MEDS ORDERED: non-formulary drug (Budesonide/Formoterol Fumarate (Symbicort 160-4.5 Mcg Inhaler) 2 PUFFS INH SCH (08:00)
[2022-09-24] MEDS ORDERED: carVEDilol 3.125mg tablet PO SCH (08:00)
[2022-09-24] MEDS: aspirin 81mg, enteric-coated 1 TAB TABLET.DR PO SCH (08:00)
[2022-09-24] MEDS: hydroxychloroquine 200mg tablet PO SCH (08:00)
--- NOTE | 2022-09-24 18:00 | NUR ---
Patient in room PCU 3023. I have received report from FRANCIA SEGAL and had the opportunity to ask questions and assume patient care.
[2022-09-24] MEDS: LORazepam 0.5 MG tablet PO PRN (21:05)
[2022-09-24] MEDS: oxyCODONE/APAP 10/325mg tablet PO PRN (21:08)
[2022-09-25] VITALS (13 sets, daily range): BP systolic 86–113; BP diastolic 60–92
[2022-09-25] MEDS: DOBUTamine-DoBUTrex 500mg/D5W 250 ML IV SCH (05:02)
[2022-09-25] MEDS: LORazepam 0.5 MG tablet PO PRN ×2 (05:05→21:04)
[2022-09-25] MEDS: oxyCODONE/APAP 10/325mg tablet PO PRN ×2 (05:05→21:04)
--- NOTE | 2022-09-25 06:15 | NUR ---
Patient in room PCU 3023. I have received report from Mary SEGAL and had the opportunity to ask questions and assume patient care.Bedside report completed.Pt sleeping ,no distress, Call light in reach. Addendum: 09/25/22 at 0633 by Kristen Wyatt RN Amended: Links added.
[2022-09-25 06:44] LABS: BASOPHILS % (AUTO) 0.1 % (0-1); HEMOGLOBIN 10.2 g/dl (14.0-17.9)
[2022-09-25 06:47] LABS: EOSINOPHILS % (AUTO) 0.2 % (0-6); HEMATOCRIT 32.1 % (42.0-52.0); LYMPHOCYTES # (AUTO) 0.4 X10'3 (1.1-4.8); LYMPHOCYTES % (AUTO) 8.1 % (21-51); MEAN CORPUSCULAR HEMOGLOBIN 25.5 PG (27.0-31.0); MEAN CORPUSCULAR HGB CONC 31.9 g/dL (33.0-36.5); MEAN PLATELET VOLUME 8.6 FL (7.4-10.4); MONOCYTES # (AUTO) 0.3 X10'3 (0-0.9); MONOCYTES % (AUTO) 6.6 % (2-12); NEUTROPHILS # (AUTO) 4.4 X10'3 (1.8-7.7); PLATELET COUNT 84 X10'3 (140-440); RED BLOOD COUNT 4.02 X10'6 (4.70-6.10); RED CELL DISTRIBUTION WIDTH 18.9 % (11.5-14.5); WHITE BLOOD COUNT 5.2 X10'3 (4.5-11.0)
--- NOTE | 2022-09-25 07:00 | NUR ---
+ .Problems reprioritized. Patient report given, questions answered & plan of care reviewed with Kristen SEGAL.
[2022-09-25 07:06] LABS: ALANINE AMINOTRANSFERASE 101 U/L (12-78); ALBUMIN 1.8 G/DL (3.4-5.0); ALBUMIN/GLOBULIN RATIO 0.4 (1.1-1.5); ALKALINE PHOSPHATASE 101 IU/L (46-116); ANION GAP 9 (8-16); ASPARTATE AMINO TRANSFERASE 49 U/L (10-37); BILIRUBIN,TOTAL 1.8 MG/DL (0.1-1.0); BLOOD UREA NITROGEN 82 MG/DL (7-18); BUN/CREATININE RATIO 25.6 (10.0-20.0); CALCIUM 8.6 MG/DL (8.5-10.1); CHLORIDE 98 MMOL/L (99-107); SODIUM 134 MMOL/L (135-145); TOTAL CARBON DIOXIDE 27.4 MMOL/L (24-32); eGFR 24 ML/MIN
[2022-09-25 07:15] LABS: GLUCOSE 98 MG/DL (70-104)
--- NOTE | 2022-09-25 07:23 | NUR ---
PAGER ID: [phone] MESSAGE: [phone] Jose Munroe+ 3.0 was 3.1 yesterday. Still awaiting Nephrology consult. Kristen SHAFER
[2022-09-25] MEDS: furosemide 40mg tablet PO SCH (08:39)
[2022-09-25] MEDS: docusate sod 100mg capsule PO SCH ×2 (08:41→20:00)
[2022-09-25] MEDS: ESCITALOPRAM OXALATE 5 MG TABLET PO SCH (08:41)
[2022-09-25] MEDS: aspirin 81mg, enteric-coated 1 TAB TABLET.DR PO SCH (08:44)
[2022-09-25] MEDS: carVEDilol 3.125mg tablet PO SCH ×2 (08:44→21:04)
[2022-09-25] MEDS: hydroxychloroquine 200mg tablet PO SCH (08:44)
--- NOTE | 2022-09-25 08:55 | NUR ---
Noted pt with a low Scot of 12. Per physical assessment pt with RLE 3+ edema and per EMERGENCY DEPARTMENT AIDE/RN skin assessment pt with a small open area to top of head and right side of chest with no drainage. No wound care consult in place. Wounds don't appear very significant at this time. Will continue to follow. Addendum: 09/25/22 at [address] Amended: Links added.
[2022-09-25] MEDS: lactose-reduced food (Ensure High Protein) 237ml bottle PO SCH ×2 (13:00→18:00)
--- NOTE | 2022-09-25 18:28 | NUR ---
Problems reprioritized. Patient report given, questions answered & plan of care reviewed with Doug SEGAL. Bedside report completed.Pt youth care specialist at bedside. Call light in reach. Addendum: 09/25/22 at 1829 by Kristen Wyatt RN Amended: Links added. Addendum: 09/25/22 at 1833 by Kristen Wyatt RN Handoff given to Mary SEGAL.
[2022-09-26] VITALS (11 sets, daily range): BP systolic 96–127; BP diastolic 74–93
[2022-09-26] MEDS: LORazepam 0.5 MG tablet PO PRN ×2 (03:07→22:13)
[2022-09-26 06:56] LABS: EOSINOPHILS % (AUTO) 0 % (0-6); LYMPHOCYTES # (AUTO) 0.3 X10'3 (1.1-4.8); MONOCYTES # (AUTO) 0.4 X10'3 (0-0.9); NEUTROPHILS # (AUTO) 8.9 X10'3 (1.8-7.7)
[2022-09-26 06:57] LABS: BASOPHILS % (AUTO) 0 % (0-1); LYMPHOCYTES % (AUTO) 2.8 % (21-51); MEAN CORPUSCULAR HEMOGLOBIN 25.7 PG (27.0-31.0); MEAN CORPUSCULAR HGB CONC 32.2 g/dL (33.0-36.5); MEAN CORPUSCULAR VOLUME 79.9 FL (78-98); MONOCYTES % (AUTO) 3.9 % (2-12); NEUTROPHILS % (AUTO) 93.3 % (42-75); PLATELET COUNT 85 X10'3 (140-440); RED BLOOD COUNT 4.26 X10'6 (4.70-6.10); RED CELL DISTRIBUTION WIDTH 18.9 % (11.5-14.5); WHITE BLOOD COUNT 9.5 X10'3 (4.5-11.0)
--- NOTE | 2022-09-26 07:08 | NUR ---
Problems reprioritized. Patient report given, questions answered & plan of care reviewed with Netta SEGAL.
--- NOTE | 2022-09-26 07:11 | NUR ---
Patient in room PCU 3023. I have received report from LUZMA Hernandez and had the opportunity to ask questions and assume patient care.
[2022-09-26 07:22] LABS: ALANINE AMINOTRANSFERASE 135 U/L (12-78); ALBUMIN/GLOBULIN RATIO 0.4 (1.1-1.5); ALKALINE PHOSPHATASE 147 IU/L (46-116); ANION GAP 9 (8-16); ASPARTATE AMINO TRANSFERASE 86 U/L (10-37); BILIRUBIN,TOTAL 2.3 MG/DL (0.1-1.0); BLOOD UREA NITROGEN 82 MG/DL (7-18); BUN/CREATININE RATIO 25.5 (10.0-20.0); CALCIUM 8.8 MG/DL (8.5-10.1); CHLORIDE 96 MMOL/L (99-107); CREATININE 3.22 MG/DL (0.60-1.10); GLUCOSE 108 MG/DL (70-104); POTASSIUM 3.4 MMOL/L (3.5-5.1); SODIUM 131 MMOL/L (135-145); TOTAL CARBON DIOXIDE 26.1 MMOL/L (24-32); TOTAL PROTEIN 6.6 G/DL (6.4-8.2); eGFR 23 ML/MIN
[2022-09-26 07:46] LABS: ANISOCYTOSIS 2+; MICROCYTOSIS 1+; NUCLEATED RED BLOOD CELLS 1 /100WBC (0-0); PLATELET ESTIMATE DECREASED; TOTAL CELLS COUNTED 100
[2022-09-26 07:48] LABS: ELLIPTOCYTES FEW; SCHISTOCYTES FEW
[2022-09-26] MEDS: ESCITALOPRAM OXALATE 5 MG TABLET PO SCH (08:44)
[2022-09-26] MEDS: aspirin 81mg, enteric-coated 1 TAB TABLET.DR PO SCH (08:44)
[2022-09-26] MEDS: carVEDilol 3.125mg tablet PO SCH ×2 (08:44→22:13)
[2022-09-26] MEDS: furosemide 40mg tablet PO SCH (08:45)
[2022-09-26] MEDS: hydroxychloroquine 200mg tablet PO SCH (08:45)
[2022-09-26] MEDS: docusate sod 100mg capsule PO SCH ×2 (08:45→20:00)
[2022-09-26] MEDS: lactose-reduced food (Ensure High Protein) 237ml bottle PO SCH ×3 (08:47→13:19)
--- NOTE | 2022-09-26 18:10 | NUR ---
Patient in room PCU 3023. I have received report from Karen SEGAL and had the opportunity to ask questions and assume patient care.
--- NOTE | 2022-09-26 18:21 | NUR ---
Problems reprioritized. Patient report given, questions answered & plan of care reviewed with LUZMA AMARAL. Student documentation: I have reviewed and agree with all interventions, assessments performed and documented by LUZMA MOORE. Student Medication Administration: For this medication-pass time frame, all medication were reviewed, dispensed, administered and documented per hospital policy by LUZMA MOORE.
--- NOTE | 2022-09-26 18:25 | NUR ---
Problems reprioritized. Patient report given, questions answered & plan of care reviewed with LUZMA Hernandez.
[2022-09-26] MEDS: oxyCODONE/APAP 10/325mg tablet PO PRN (22:13)
[2022-09-27] VITALS (12 sets, daily range): BP systolic 93–114; BP diastolic 68–92
[2022-09-27] MEDS: DOBUTamine-DoBUTrex 500mg/D5W 250 ML IV SCH (01:30)
--- NOTE | 2022-09-27 07:01 | NUR ---
Patient in room PCU 3023. I have received report from LUZMA GABRIEL, and had the opportunity to ask questions and assume patient care.
--- NOTE | 2022-09-27 07:14 | NUR ---
Problems reprioritized. Patient report given, questions answered & plan of care reviewed with TERESA SEGAL.
[2022-09-27] MEDS: lactose-reduced food (Ensure High Protein) 237ml bottle PO SCH ×3 (08:00→18:00)
[2022-09-27] MEDS: docusate sod 100mg capsule PO SCH ×2 (08:00→19:49)
[2022-09-27 08:28] LABS: ALANINE AMINOTRANSFERASE 109 U/L (12-78); ALBUMIN 1.8 G/DL (3.4-5.0); ALBUMIN/GLOBULIN RATIO 0.4 (1.1-1.5); ALKALINE PHOSPHATASE 148 IU/L (46-116); ANION GAP 9 (8-16); ASPARTATE AMINO TRANSFERASE 63 U/L (10-37); BILIRUBIN,TOTAL 2.8 MG/DL (0.1-1.0); BLOOD UREA NITROGEN 81 MG/DL (7-18); BUN/CREATININE RATIO 28.2 (10.0-20.0); CALCIUM 8.7 MG/DL (8.5-10.1); CHLORIDE 94 MMOL/L (99-107); CREATININE 2.87 MG/DL (0.60-1.10); GLUCOSE 102 MG/DL (70-104); SODIUM 129 MMOL/L (135-145); TOTAL CARBON DIOXIDE 26.5 MMOL/L (24-32); TOTAL PROTEIN 6.6 G/DL (6.4-8.2); eGFR 27 ML/MIN
[2022-09-27] MEDS: oxyCODONE/APAP 10/325mg tablet PO PRN (09:31)
[2022-09-27] MEDS: furosemide 40mg tablet PO SCH (09:32)
[2022-09-27] MEDS: hydroxychloroquine 200mg tablet PO SCH (09:32)
[2022-09-27] MEDS: ESCITALOPRAM OXALATE 5 MG TABLET PO SCH (09:32)
[2022-09-27] MEDS: aspirin 81mg, enteric-coated 1 TAB TABLET.DR PO SCH (09:33)
[2022-09-27] MEDS: carVEDilol 3.125mg tablet PO SCH ×2 (09:33→19:47)
[2022-09-27 09:44] LABS: BASOPHILS % (AUTO) 0.2 % (0-1); EOSINOPHILS % (AUTO) 0 % (0-6); HEMATOCRIT 37.3 % (42.0-52.0); HEMOGLOBIN 11.7 g/dl (14.0-17.9); LYMPHOCYTES # (AUTO) 0.2 X10'3 (1.1-4.8); LYMPHOCYTES % (AUTO) 2.9 % (21-51); MEAN CORPUSCULAR HEMOGLOBIN 25.2 PG (27.0-31.0); MEAN CORPUSCULAR HGB CONC 31.4 g/dL (33.0-36.5); MEAN CORPUSCULAR VOLUME 80.5 FL (78-98); MEAN PLATELET VOLUME 9.5 FL (7.4-10.4); MONOCYTES # (AUTO) 0.3 X10'3 (0-0.9); MONOCYTES % (AUTO) 3.8 % (2-12); NEUTROPHILS # (AUTO) 7.6 X10'3 (1.8-7.7); NEUTROPHILS % (AUTO) 93.1 % (42-75); PLATELET COUNT 78 X10'3 (140-440); RED BLOOD COUNT 4.63 X10'6 (4.70-6.10); RED CELL DISTRIBUTION WIDTH 19.1 % (11.5-14.5); WHITE BLOOD COUNT 8.2 X10'3 (4.5-11.0)
--- NOTE | 2022-09-27 10:18 | NUR ---
Page Sent PAGER ID: [phone] MESSAGE: [id number] Rod Garcia. Care takers report changed mentation. Pt c/o back pain, with elevated BUN and CR. Might we consider a renal study? Thank you, Netta SEGAL [phone]
[2022-09-27] MEDS: normal saline 1000ml 1,000 ML IV SCH (12:44)
--- NOTE | 2022-09-27 12:57 | NUR ---
STROKE ALERT CALLED. RECEIVED ORDERS FOR STAT CT HEAD.
--- NOTE | 2022-09-27 13:00 | NUR ---
PAGER ID: [phone] MESSAGE: SARAH [email or web address], [phone] IS A STROKE ALERT, HEADING FOR CT NOW. I AM ALSO PLACING ORDER FOR AMMONIA LEVELS. THX (110 character message out of a maximum of 240) CLOSE [X] SEND ANOTHER PAGE Thank you for visiting [facility] promotional table spacer promotional table spacer
--- NOTE | 2022-09-27 13:07 | NUR ---
PAGE SENT PAGER ID: [phone] MESSAGE: [id number], VLAD GREGG, MAY WE STOP THE DOBUTAMINE FOR MRI? THANK YOU, TERESA [phone]
--- NOTE | 2022-09-27 13:09 | NUR ---
ORDER TO HOLD DOBUTAMINE GTT RECEIVED. Addendum: 09/27/22 at 1310 by Netta Ortiz RN FOR MRI PROCEDURE.
--- NOTE | 2022-09-27 13:31 | NUR ---
PRESSURE ULCER EDUCATION: DEFINITION: A pressure ulcer is an area of skin that breaks down when you stay in one position too long. The constant pressure against the skin reduces the blood flow to that area and the affected tissue dies. CAUSES: "Being bedridden or in a wheelchair "Fragile skin "Having a chronic condition, such as diabetes or vascular disease "Inability to move certain parts of your body without assistance "Older age "Incontinence of urine or stool SYMPTOMS: "A reddened area that DOES NOT turn white when pressed on - this can be the beginning of a pressure ulcer "A blister, deep sore or a crater - these can be advanced pressure ulcers FIRST AID: "Relieve the pressure on this area "Keep the area clean and dry "Call your primary doctor if you see any of the above symptoms "DO NOT massage the area "DO NOT use a donut shaped or ring shaped pillow- these actually interfere with the blood flow and cause complications PREVENTION: "Check for pressure ulcers everyday "Change position at least every two hours to relieve pressure "Use items that help relieve pressure- pillows, sheepskin, foam padding, and powders. "Keep skin clean and dry "Eat healthy well balanced meals "Exercise daily IF YOU SEE ANY OF THESE SYMPTOMS WHILE IN THE HOSPITAL - TELL YOUR NURSE IMMEDIATELY. IF YOU SEE ANY OF THESE SYMPTOMS WHILE AT HOME OR HAVE ANY QUESTIONS OR CONCERNS ABOUT PRESSURE ULCERS - CALL YOUR PRIMARY DOCTOR IMMEDIATELY. Addendum: 09/27/22 at 1332 by Safia Martinez RN Amended: Links added.
--- NOTE | 2022-09-27 15:21 | NUR ---
PAGE SENT PAGER ID: [phone] MESSAGE: [id number], VLAD GREGG, AMMONIA <10. MIGHT THE PT BENEFIT FROM A FC FOR MORE ACCURATE I&O? THANK YOU, TERESA [phone]
[2022-09-27] MEDS ORDERED: apixaban 5mg tablet PO SCH (15:25)
[2022-09-27] MEDS ORDERED: apixaban 5mg tablet PO ONE (15:25)
--- NOTE | 2022-09-27 17:21 | NUR ---
STROKE ALERT CALLED AT 1247. ALTERED MENTATION WAS NOTICED FROM MORNING'S ASSESSMENT. PT WASN'T FOLLOWING COMMANDS TO SMILE, STICK OUT TONGUE, SQUEEZE FINGERS, ETC.... CN SARAH NOTIFIED. PT STILL NO FOLLOWING COMMANDS AND SARAH SAID TO CALL A STROKE ALERT. STROKE NURSE LUZMA VARGAS ARRIVED ARRIVED TO THE ROOM. SCHEDULED MRI WAS PRIORITIZED. OK TO HOLD DOBUTAMINE GTT OBTAINED. PT WAS TRANSFERRED TO MRI ROOM WITH O2 AND GTT. MRI PERFORMED, PT RETURNED TO ROOM. TELECONFERENCE WITH NEUROLOGIST AND LUZMA VARGAS. RECEIVED ORDERS FROM DR. LYON. WILL CONTINUE TO MONITOR.
[2022-09-27] MEDS ORDERED: LidoCAINE 2% Topical Jelly 11mL syringe TOP ONE (17:30)
--- NOTE | 2022-09-27 18:08 | NUR ---
Student documentation: I have reviewed and agree with all interventions, assessments performed and documented by LUZMA MOORE. Student Medication Administration: For this medication-pass time frame, all medication were reviewed, dispensed, administered and documented per hospital policy by LUZMA MOORE.
--- NOTE | 2022-09-27 18:40 | NUR ---
Problems reprioritized. Patient report given, questions answered & plan of care reviewed with LUZMA GONZÁLES.
[2022-09-27] MEDS: apixaban 5mg tablet PO SCH (19:49)
[2022-09-28] VITALS (14 sets, daily range): BP systolic 86–179; BP diastolic 60–85
[2022-09-28] MEDS: normal saline 1000ml 1,000 ML IV SCH (06:25)
[2022-09-28 07:21] LABS: BASOPHILS % (AUTO) 0.1 % (0-1); EOSINOPHILS # (AUTO) 0.1 X10'3 (0-0.9); EOSINOPHILS % (AUTO) 0.8 % (0-6); LYMPHOCYTES # (AUTO) 0.1 X10'3 (1.1-4.8); LYMPHOCYTES % (AUTO) 1.4 % (21-51)
[2022-09-28 07:23] LABS: HEMATOCRIT 34.4 % (42.0-52.0); MEAN CORPUSCULAR HEMOGLOBIN 25.1 PG (27.0-31.0); MEAN CORPUSCULAR VOLUME 78.2 FL (78-98); MEAN PLATELET VOLUME 9.4 FL (7.4-10.4); MONOCYTES # (AUTO) 0.2 X10'3 (0-0.9); MONOCYTES % (AUTO) 3.1 % (2-12); NEUTROPHILS # (AUTO) 7.2 X10'3 (1.8-7.7); NEUTROPHILS % (AUTO) 94.6 % (42-75); PLATELET COUNT 55 X10'3 (140-440); RED CELL DISTRIBUTION WIDTH 18.8 % (11.5-14.5); WHITE BLOOD COUNT 7.6 X10'3 (4.5-11.0)
[2022-09-28 07:48] LABS: ALANINE AMINOTRANSFERASE 79 U/L (12-78); ALBUMIN 1.7 G/DL (3.4-5.0); ALBUMIN/GLOBULIN RATIO 0.4 (1.1-1.5); ALKALINE PHOSPHATASE 133 IU/L (46-116); ANION GAP 11 (8-16); ASPARTATE AMINO TRANSFERASE 37 U/L (10-37); BILIRUBIN,TOTAL 3.7 MG/DL (0.1-1.0); BLOOD UREA NITROGEN 81 MG/DL (7-18); BUN/CREATININE RATIO 27.4 (10.0-20.0); CALCIUM 8.9 MG/DL (8.5-10.1); CHLORIDE 94 MMOL/L (99-107); CREATININE 2.96 MG/DL (0.60-1.10); GLUCOSE 97 MG/DL (70-104); POTASSIUM 3.7 MMOL/L (3.5-5.1); SODIUM 127 MMOL/L (135-145); TOTAL CARBON DIOXIDE 22.1 MMOL/L (24-32); TOTAL PROTEIN 6.5 G/DL (6.4-8.2); eGFR 26 ML/MIN
[2022-09-28] MEDS: lactose-reduced food (Ensure High Protein) 237ml bottle PO SCH ×3 (08:00→18:00)
[2022-09-28] MEDS: docusate sod 100mg capsule PO SCH ×2 (08:47→21:22)
[2022-09-28] MEDS: carVEDilol 3.125mg tablet PO SCH ×2 (08:50→21:22)
[2022-09-28] MEDS: aspirin 81mg, enteric-coated 1 TAB TABLET.DR PO SCH (08:51)
[2022-09-28] MEDS: apixaban 5mg tablet PO SCH ×2 (08:51→21:22)
[2022-09-28] MEDS: ESCITALOPRAM OXALATE 5 MG TABLET PO SCH (08:53)
[2022-09-28] MEDS: hydroxychloroquine 200mg tablet PO SCH (08:54)
--- NOTE | 2022-09-28 08:59 | NUR ---
computer scanner not working, passed all medications with instructor Suki
[2022-09-28] MEDS: oxyCODONE/APAP 10/325mg tablet PO PRN ×2 (11:46→21:22)
[2022-09-28] MEDS: furosemide 20 MG/2 ML vial IV SCH (11:47)
--- NOTE | 2022-09-28 12:24 | NUR ---
Initial: Pt admit for ALOC and DATE NIGHT SITTER. Per EMR pt with h/o CKD, on admit electrolytes were: Na 132, K 5.4, and mag 2.8. No f/u serum mag though today pt with hyponatremia and K is WNL. Pt receiving NS at 50 mL/hr. Pt on a renal diet and eating poorly, documented with average 48% PO intake 09/24 to breakfast 09/27 however down to 0% PO intake lunch 09/27 to present. Overall averaging 35% PO intake since admit not meeting estimated nutrient needs. Pt s/p BSS this morning with ST recs MM5 food with thin liquids d/t difficulty chewing. Hopefully PO intake will improve with texture modification. Pt receiving an Ensure High Protein TID per MD and pt with great acceptance, documented with mostly 100% PO intake of ONS. IF PO intake of meals does not improve, recommend ONS change to Ensure Enlive for additional nutrition. Also recommend removing renal diet restriction in view of PO intake and current serum electrolytes. Per EMR LBM 09/26, pt receiving routine bowel care. Will continue to follow closely and make recommendations as appropriate pending trends in PO intake with texture modification. Recommendations: 1) Continue MM5 diet with thin liquids per ST recs; discontinue renal diet restriction 2) Ensure High Protein TID per MD; ONS change to Ensure Enlive for additional nutrition IF PO intake of meals does not improve 3) Routine bowel care 4) Weekly scaled weights Addendum: 09/28/22 at [address] Amended: Links added.
--- NOTE | 2022-09-28 18:00 | NUR ---
Patient in room PCU 3023. I have received report from Oliverio SEGAL and had the opportunity to ask questions and assume patient care.
[2022-09-29] VITALS (9 sets, daily range): BP systolic 90–99; BP diastolic 66–78
[2022-09-29] MEDS: normal saline 1000ml 1,000 ML IV SCH ×2 (03:17→23:05)
--- NOTE | 2022-09-29 06:40 | NUR ---
Patient in room PCU 3023. I have received report from Suki SEGAL and had the opportunity to ask questions and assume patient care.
--- NOTE | 2022-09-29 07:33 | NUR ---
Problems reprioritized. Patient report given, questions answered & plan of care reviewed with Oliverio SEGAL.
[2022-09-29] MEDS: hydroxychloroquine 200mg tablet PO SCH (08:00)
[2022-09-29] MEDS: aspirin 81mg, enteric-coated 1 TAB TABLET.DR PO SCH (08:00)
[2022-09-29] MEDS: lactose-reduced food (Ensure High Protein) 237ml bottle PO SCH ×3 (08:00→18:00)
[2022-09-29] MEDS: ESCITALOPRAM OXALATE 5 MG TABLET PO SCH (08:00)
[2022-09-29] MEDS: docusate sod 100mg capsule PO SCH ×2 (08:00→20:00)
[2022-09-29] MEDS: apixaban 5mg tablet PO SCH ×2 (08:00→20:00)
[2022-09-29] MEDS: furosemide 20 MG/2 ML vial IV SCH (08:00)
[2022-09-29] MEDS: carVEDilol 3.125mg tablet PO SCH ×2 (08:00→20:00)
[2022-09-29] MEDS: DOBUTamine-DoBUTrex 500mg/D5W 250 ML IV SCH (12:20)
--- NOTE | 2022-09-29 18:00 | NUR ---
Patient in room [place] [address]. I have received report from Ayse SEGAL and had the opportunity to ask questions and assume patient care. Addendum: 09/30/22 at 0018 by Sandra Gama RN Patient in room [place] [address]. I have received report from Oliverio SEGAL and had the opportunity to ask questions and assume patient care.
--- NOTE | 2022-09-29 22:00 | NUR ---
CALLED DR. KUNZ AND INFORMED THAT PT IS NOT TAKING ANY ORAL MEDS AND NOT EATING AND IN LOTS OF PAIN. DR. KUNZ ORDERED 1 MG MORPHINE IV [id number] AND SAID DECISION ABOUT BLOOD THINNERS HAVE TO BE ADDRESSED DURING DAY
[2022-09-29] MEDS ORDERED: morphine 2 MG/ML inj. syringe IV PRN (23:00)
[2022-09-30] VITALS: BP 84/62
[2022-09-30 01:00] VITALS: BP 85/57
[2022-09-30] MEDS ORDERED: amiodarone 50MG/ML inj IV ONE (01:05)
--- NOTE | 2022-09-30 01:05 | NUR ---
Pt's respirations went into 33-40. While charge Emerald and I were checking his vitals and trying to talk to the pt, he had an apneic episode for at least 5-10 seconds and his respirations dropped from [address] Palmer and informed. Dr. Palmer came to the floor and checked on the pt and prescribed 100mg Amiodarone IV one time dose and medication administration was completed as pr MD orders. .
[2022-09-30 02:00] VITALS: BP 85/58
[2022-09-30 03:00] VITALS: BP 83/56
[2022-09-30 04:57] LABS: TOTAL VOLUME 24HRS,URINE 1125 ML
[2022-09-30 05:00] VITALS: BP 69/49
--- NOTE | 2022-09-30 05:05 | NUR ---
PT HAD ANOTHER APNEIC EPISODE AND NOTIFIED DR. KUNZ. NO NEW ORDERS
--- NOTE | 2022-09-30 06:25 | NUR ---
Problems reprioritized. Patient report given, questions answered & plan of care reviewed with Oliverio SEGAL.
--- NOTE | 2022-09-30 07:32 | NUR ---
PAGER ID: [phone] MESSAGE: Garcia [phone], Pt has had low BP through night AM BP is 78/47 (52). Oliverio [phone]
[2022-09-30] MEDS: ESCITALOPRAM OXALATE 5 MG TABLET PO SCH (08:00)
[2022-09-30] MEDS: hydroxychloroquine 200mg tablet PO SCH (08:00)
[2022-09-30] MEDS: aspirin 81mg, enteric-coated 1 TAB TABLET.DR PO SCH (08:00)
[2022-09-30] MEDS: furosemide 20 MG/2 ML vial IV SCH (08:00)
[2022-09-30] MEDS: apixaban 5mg tablet PO SCH (08:00)
[2022-09-30] MEDS: lactose-reduced food (Ensure High Protein) 237ml bottle PO SCH (08:00)
[2022-09-30] MEDS: carVEDilol 3.125mg tablet PO SCH (08:00)
[2022-09-30] MEDS: docusate sod 100mg capsule PO SCH (08:00)
--- NOTE | 2022-09-30 08:10 | NUR ---
Pt's BP in AM was 78/47(52) now is sitting at 61/42(45). Dr Horn has been paged and notified. Pt is still full code as per wishes of the family. will discuss code status with family. Continuing to monitor.
--- NOTE | 2022-09-30 08:14 | NUR ---
Albino Mistry just talked to Dr Horn about pt. We are doing a 500cc bolus of fluid and passed on family's contact to her so she can discuss status with them directly.
--- NOTE | 2022-09-30 08:14 | NUR ---
PAGER ID: [phone] MESSAGE: Garcia [phone], Pt's sister's name is Karli . She is in town. Oliverio [phone]
--- NOTE | 2022-09-30 10:20 | NUR ---
Pt started today's shift at full code status. After contact through myself, Dr Horn, and social work the family had decided to swap pt to DNR. They verbalized the change with 2 witnesses present. Pt very soon after .
--- NOTE | 2022-09-30 10:20 | NUR ---
PAGER ID: [phone] MESSAGE: Jose [phone], Pt has . Family notified. Oliverio [phone]
--- NOTE | 2022-09-30 10:40 | NUR ---
RN IS TO DOCUMENT YES TO ALL APPLICABLE AREAS Pronouncement of : 1. Time Physician Notified:1020 2. Date of :09/30/22 3. Time of : 944 4. DNR/Withdraw life support documented:Y 5. Monitor strip has been placed on chart:Y 6. Assessment process is of one-minute duration and includes following criteria: a) Patient is unresponsive to all stimuli: Y b) Pupils fixed and non-reactive: Y c) Auscultation of precordium reveals absence of heart tones:Y d) Auscultation of lungs reveals absence of breath sounds:Y e) Absence of blood pressure / all vital signs:Y f) QRS complexes are not present on monitor / EKG strip:Y g) Pacer spikes without capture:N 4. Comments:
--- NOTE | 2022-09-30 12:55 | NUR ---
I was off floor with my HD pt and the home came to take the pt. Pt has been removed from floor however no one signed that they took the pt into their care. Transport talked with Fede echevarria but due to probable loss of communication no forms were signed for transition of care for the body. i put the completed but unsigned form in the pt's binder.
== END 2022-09-30 12:19 | DRG 45 ==
LOC: ER 13:46 → ED HOLD 20:41 → PCU 3S 09-24 11:22
PROVIDERS: ADMIT Internal Medicine; ATTEND Internal Medicine
DX: I63.89 Other cerebral infarction (principal); J96.90 Respiratory failure, unspecified, unspecified whether with hypoxia or hypercapnia; N17.0 Acute kidney failure with tubular necrosis; I50.33 Acute on chronic diastolic (congestive) heart failure; I42.7 Cardiomyopathy due to drug and external agent; E83.41 Hypermagnesemia; E87.1 Hypo-osmolality and hyponatremia; I13.0 Hypertensive heart and chronic kidney disease with heart failure and stage 1 through stage 4 chronic kidney disease, or unspecified chronic kidney disease; M10.9 Gout, unspecified; N18.9 Chronic kidney disease, unspecified; Z66 Do not resuscitate; F41.9 Anxiety disorder, unspecified; K80.20 Calculus of gallbladder without cholecystitis without obstruction; E87.6 Hypokalemia; I73.9 Peripheral vascular disease, unspecified; R64 Cachexia; I48.0 Paroxysmal atrial fibrillation; G93.89 Other specified disorders of brain; D64.9 Anemia, unspecified; E78.00 Pure hypercholesterolemia, unspecified; E87.5 Hyperkalemia; J44.9 Chronic obstructive pulmonary disease, unspecified; I25.10 Atherosclerotic heart disease of native coronary artery without angina pectoris; I25.2 Old myocardial infarction; Z82.49 Family history of ischemic heart disease and other diseases of the circulatory system; Z86.73 Personal history of transient ischemic attack (TIA), and cerebral infarction without residual deficits; Z89.612 Acquired absence of left leg above knee; Z59.00 Homelessness unspecified; Z56.0 Unemployment, unspecified; Z79.899 Other long term (current) drug therapy; Z68.23 Body mass index [BMI] 23.0-23.9, adult
CPT/HCPCS: 36415; 70450; 70551; 71045; 76700; 80053; 82140; 82570; 83735; 83880; 84156; 84484; 85007; 85025; 85379; 85610; 85730; 87081; 92508; 92616; 93005; 93308; 93975; 94640; 94760; 96365; 96375; 99285; A4615; A5200; A6250; G0378; J0282; J1250; J1815; J1940; J2270; J2405; J3490; J7030; J7070